=== PATIENT | male | born 1955 | race Caucasian/White ===

== ENCOUNTER → 2017-08-28 11:24 | Outpatient (CLI) | payer OTHER, SELFPAY ==
[2017-08-28 14:27] LABS: Basophils % 0.4 % (0.1-2.0); Eosinophils # 0.3 K/mm3 (0.0-0.4); Eosinophils % 3.9 % (0.1-12.0); Hematocrit 47.8 % (42.0-52.0); Hemoglobin 15.7 g/dL (14.1-18.0); Lymphocytes # 1.7 K/mm3 (0.7-4.5); Lymphocytes % 24.7 K/mm3 (10-50); Mean Corpuscular HGB Conc 32.9 g/dL (31.8-35.4); Mean Corpuscular Hemoglobin 33.6 pg (27.0-31.2); Mean Corpuscular Volume 102.2 fl (80-94); Mean Platelet Volume 8.7 fl (7.4-10.4); Monocytes # 0.5 K/mm3 (0.1-1.0); Monocytes % 7.6 % (1.7-9.3); Neutrophils # 4.4 K/mm3 (1.8-7.8); Neutrophils % 63.5 % (37.0-80.0); Platelet Count 201 K/mm3 (142-424); Red Blood Count 4.68 M/mm3 (4.60-6.20); Red Cell Distribution Width 13.1 % (11.5-17.5); White Blood Count 6.9 K/mm3 (4.8-10.8)
[2017-08-28 15:08] LABS: Alanine Aminotransferase 29 U/L (12-78); Albumin Level 3.9 gm/dL (3.4-5.0); Albumin/Globulin Ratio 1.1 (1.1-1.8); Alkaline Phosphatase 72 U/L (46-116); Anion Gap 15.5 mEq/L (5-15); Aspartate Amino Transferase 24 U/L (15-37); Bilirubin,Total 1.1 mg/dL (0.2-1.0); Blood Urea Nitrogen 19 mg/dL (7-18); Calcium 9.7 mg/dL (8.5-10.1); Carbon Dioxide 25 mmol/L (21.0-32.0); Chloride 99 mmol/L (98-107); Chol/HDL Ratio 3.3 (1-3.5); Cholesterol 139 mg/dL (140-200); Creatinine,Serum 1.03 mg/dL (0.70-1.30); Estimated Glomerular Filt Rate 73 ml/min (>60); GFR (African American) 88 ML/MIN (>60); Globulin 3.5 gm/dl (1.3-3.2); Glucose 115 mg/dL (74-106); HDL Cholesterol 42 mg/dL (27-67); LDL Cholesterol 87 mg/dL (0-130); Potassium 5.5 mmoL/L (3.5-5.1); Sodium 134 mmol/L (136-145); T4 (Thyroxine) 7.4 ug/dl (4.7-13.3); Total Protein,Serum 7.4 gm/dL (6.4-8.2); Triglycerides 49 mg/dL (30-200); VLDL Cholesterol 10 mg/dL (0-40)
[2017-08-29 20:15] LABS: Vitamin B12 565 pg/mL (232-1245); Vitamin D 25 Hydroxy 24.2 ng/mL (30.0-100.0)
== END ==
PROVIDERS: Visit Provider Nurse Practitioner Family
DX: R53.83 Other fatigue (principal); I10 Essential (primary) hypertension; Z79.899 Other long term (current) drug therapy
CPT/HCPCS: 80053; 80061; 82607; 82652; 84436; 84443; 85025

== ENCOUNTER → 2019-03-08 17:04 | Outpatient (CLI) | payer MEDICARE, OTHER, SELFPAY ==
[2019-03-08 17:27] LABS: Basophils # 0.1 K/mm3 (0-0.2); Basophils % 0.8 % (0.1-2.0); Eosinophils # 0.3 K/mm3 (0.0-0.4); Eosinophils % 4.6 % (0.1-12.0); Hematocrit 46.1 % (42.0-52.0); Hemoglobin 15.5 g/dL (14.1-18.0); Lymphocytes # 1.5 K/mm3 (0.7-4.5); Lymphocytes % 21.7 % (10-50); Mean Corpuscular HGB Conc 33.5 g/dL (31.8-35.4); Mean Corpuscular Hemoglobin 34.3 pg (27.0-31.2); Mean Corpuscular Volume 102.4 fl (80-94); Mean Platelet Volume 9.9 fl (7.4-10.4); Monocytes # 0.6 K/mm3 (0.1-1.0); Monocytes % 8.2 % (1.7-9.3); Neutrophils # 4.5 K/mm3 (1.8-7.8); Neutrophils % 64.6 % (37.0-80.0); Platelet Count 202 K/mm3 (142-424); Red Blood Count 4.51 M/mm3 (4.60-6.20); Red Cell Distribution Width 13.4 % (11.5-17.5); White Blood Count 6.9 K/mm3 (4.8-10.8)
[2019-03-08 19:07] LABS: Alanine Aminotransferase 27 U/L (12-78); Albumin Level 3.8 gm/dL (3.4-5.0); Albumin/Globulin Ratio 1.2 (1.1-1.8); Alkaline Phosphatase 67 U/L (46-116); Anion Gap 15.3 mEq/L (5-15); Aspartate Amino Transferase 17 U/L (15-37); Bilirubin,Total 1.1 mg/dL (0.2-1.0); Blood Urea Nitrogen 15 mg/dL (7-18); Calcium 9.2 mg/dL (8.5-10.1); Carbon Dioxide 24 mmol/L (21.0-32.0); Chloride 97 mmol/L (98-107); Chol/HDL Ratio 3.3 (1-3.5); Cholesterol 145 mg/dL (140-200); Creatinine,Serum 0.95 mg/dL (0.70-1.30); Estimated Glomerular Filt Rate 80 ml/min (>60); GFR (African American) 96 ML/MIN (>60); Globulin 3.3 gm/dl (1.3-3.2); Glucose 117 mg/dL (74-106); HDL Cholesterol 44 mg/dL (27-67); LDL Cholesterol 90 mg/dL (0-130); Potassium 5.3 mmoL/L (3.5-5.1); Sodium 131 mmol/L (136-145); Thyroid Stimulating Hormone 1.64 uIU/ml (0.358-3.740); Total Protein,Serum 7.1 gm/dL (6.4-8.2); Triglycerides 56 mg/dL (30-200); VLDL Cholesterol 11 mg/dL (0-40)
== END ==
PROVIDERS: Visit Provider Nurse Practitioner Family
DX: I10 Essential (primary) hypertension (principal); Z79.899 Other long term (current) drug therapy
CPT/HCPCS: 80053; 80061; 84436; 84443; 85025

== ENCOUNTER 2020-05-02 14:41 | Inpatient (IN) | payer MEDICARE, OTHER, SELFPAY ==
[2020-05-02] VITALS (45 sets, daily range): BP systolic 101–163; BP diastolic 61–117; PULSE 58–114; RESP 14–20; TEMP -17.7–36.4; O2SAT 97–100; BMI 33.8; BMI 27.5; BMI 33.9; BMI 26.9
--- NOTE | 2020-05-02 | IR_ITS ---
APPROVED REPORT Patient Location: [facility] Equipment Design Engineer: TISHA Orozco RT (R) PROCEDURES 1. Left heart catheterization 2. Selective coronary arteriography 3. Left ventriculography 4. Access of the left common femoral artery 5. Sheath placement in the left common femoral artery 6. Pigtail catheter placement in the infrarenal abdominal aorta 7. Pelvic aortogram INDICATION 1. Acute myocardial infarction, 2. Abnormal EKG SCAI INDICATION Patient is a 64-year-old white male who presented after being found down. Question of seizure activity. Also question of stroke. Had a CT scan which came back with no intracranial bleed. Patient had ST elevation throughout the inferior lateral and anterior leads. Global ST elevation with no reciprocal change. Ischemic changes. Unable to take history given the fact the patient was intubated. Brought directly to the cardiac catheterization laboratory Informed consent was obtained prior to the procedure. COMPLICATIONS None Estimated Blood Loss: less than 10ml TECHNIQUE One percent lidocaine was used to anesthetize the right groin. The right femoral artery was accessed via the Seldinger technique. A 4-Turkmen sheath was placed in the right femoral artery. The JL-4 and JR-4 catheter was also used to perform left heart catheterization left ventriculogram and selective coronary angiogram. At the end of the procedure the patient was transferred to the post-op holding area in stable condition for arterial sheath removal. ANGIOGRAPHIC RESULTS The left main artery Moderate ostial calcification but angiographically normal The left anterior descending artery Diffuse 20 to 30% proximal and mid stenosis with moderate to severe coronary calcification The circumflex artery Large and dominant. Diffuse 20 to 30% mid stenosis with moderate to severe calcification The right coronary artery Moderate to severe ostial calcification. Nondominant right coronary artery. Smooth 30% proximal/mid stenosis The DENNISON ventriculogram reveals Normal left ventricular systolic function with an ejection fraction of 65 to 70%. No noted mitral regurgitation and no wall motion abnormalities The left ventricular end-diastolic pressure 26 I had a difficult time getting in the right leg. I was able to gain access and place a sheath in the right common femoral artery. Heavy calcification was noted of the iliac arteries. Retrograde iliac angiogram was performed on the right which showed 100% occlusion of the right distal external iliac artery. It was unclear as to whether this was a dissection flap which would be a retrograde flap or whether there was 100% occlusion. I then gained access in the left common femoral artery. Sheath was placed. I had a difficult time getting up the left leg as well as there was moderate to severe calcification in the iliac system. With the help of a Glidewire I was able to get up. It was difficult to pass the catheter. At the end of the case, I went in with the pigtail catheter after doing the left ventriculogram and pulled it down to the distal abdominal aorta. Bilateral iliofemoral pelvic angiogram was performed. Heavy calcification of the peripheral vasculature. Severe stenosis noted in the mid left external iliac artery. 100% occlusion of the right external iliac artery in its proximal/midportion. Also noted to have 100% occlusion of the ostial left superficial femoral artery given heavy calcification. IMPRESSION 1. Mild diffuse coronary artery disease 2. Moderate to severe coronary calcification 3. Preserved normal left ventricular systolic function 4. Mild elevation in left ventricular end-diastolic pressure 5. Severe peripheral arterial c
--- NOTE | 2020-05-02 14:37 | ECG_ITS ---
APPROVED REPORT Exam: Resting ECG HR:114 bpm ECG Measurements Heart Rate 114 AXES QRSd 96 QRS 22 QT 340 T 75 QTc 468 Conclusion Atrial fibrillation with rapid ventricular response with premature ventricular or aberrantly conducted complexes ST elevation, consider anterolateral injury or acute infarct ST elevation, consider inferior injury or acute infarct ACUTE MN Consider right ventricular involvement in acute inferior infarct Abnormal ECG Electronically signed by : Cristobal Guevara, 05/02/2020 20:46:01
--- NOTE | 2020-05-02 14:42 | PC.NURSE ---
1436- pt arrived via EMS pt nasally intubated with a 7.0 ETT, tube is barried to hub in pt R nare. per ems report pt found pt on the floor, unknown how long pt was on the floor. Pt reports pt had fallen multiple times today.
--- NOTE | 2020-05-02 14:42 | PC.NURSE ---
Dr Moise notified of STEMI Alert
--- NOTE | 2020-05-02 14:50 | PC.NURSE ---
Pt to ct scan with Mariajose and Jose.
--- NOTE | 2020-05-02 14:52 | CT_ITS ---
PROCEDURE: CT HEAD/BRAIN WO CON CLINICAL INDICATION: ams COMPARISON: No exams were available for comparison TECHNIQUE: Axial images obtained. All CT scans at the facility use one or more dose reduction, viz: automated exposure control, ma/kV adjustment per patient size (including targeted exams where dose is matched to indication, i.e. head), or iterative reconstruction technique. FINDINGS: No midline shift, mass effect, intracranial hemorrhage, hydrocephalus, or extra-axial fluid collection is evident. The basilar cisterns are prominent. Sylvian fissures and cortical sulci. There are mild bilateral periventricular hypodensities consistent chronic ischemic white matter changes. There is no definite ischemic infarct seen. The calvarium has an unremarkable appearance. No mastoid effusion. No sinus air-fluid level. IMPRESSION: Findings of moderate cortical atrophy mild bilateral chronic ischemic white matter changes, no acute intracranial pathology noted Dictated by: Dr. Francisco Benjamin MD 05/02/2020 15:11 Dr. Francisco Benjamin MD in [place] 05/02/2020 15:11
--- NOTE | 2020-05-02 14:58 | PC.NURSE ---
Stemi called for pt at 1439 notified at 1443
[2020-05-02 15:02] LABS: Basophils # 0.1 K/mm3 (0-0.2); Basophils % 0.2 % (0.1-2.0); Eosinophils # 0.1 K/mm3 (0.0-0.4); Eosinophils % 0.1 % (0.1-12.0); Hematocrit 46.4 % (42.0-52.0); Hemoglobin 15.2 g/dL (14.1-18.0); Lymphocytes # 2.4 K/mm3 (0.7-4.5); Lymphocytes % 6.7 % (10-50); MANUAL DIFFERENTIAL MANUAL DIFFERENTIAL (MANUAL DIFF); Mean Corpuscular HGB Conc 32.8 g/dL (31.8-35.4); Mean Corpuscular Hemoglobin 33.7 pg (27.0-31.2); Mean Corpuscular Volume 102.8 fl (80-94); Monocytes # 1.4 K/mm3 (0.1-1.0); Monocytes % 3.8 % (1.7-9.3); Neutrophils # 32.1 K/mm3 (1.8-7.8); Neutrophils % 89.2 % (37.0-80.0); Platelet Count 420 K/mm3 (142-424); Red Blood Count 4.51 M/mm3 (4.60-6.20); Red Cell Distribution Width 14.1 % (11.5-17.5)
--- NOTE | 2020-05-02 15:03 | XR_ITS ---
PROCEDURE: XR CHEST AP CLINICAL HISTORY: ET TUBE PLACEMENT COMPARISON: CR CXR CHEST(2 VIEWS-NOT PORTABLE) from 02/22/2014 CR CXR1 CHEST-PORTABLE from 08/13/2015 FINDINGS: The lung wong are fairly well expanded grossly clear infiltrate. There is a resuscitated paddle overlying the right suprahilar region and axillary region. The endotracheal tube is in good position approximately 2 cm above the luis. Cardiac size is grossly normal considering the supine position. Vascularity is normal for supine position. IMPRESSION: Satisfactory position of endotracheal tube, no definite acute chest pathology noted Dictated by: Dr. Francisco Benjamin MD 05/02/2020 15:22 Dr. Francisco Benjamin MD in [facility] 05/02/2020 15:22
[2020-05-02 15:10] LABS: Alanine Aminotransferase 71 U/L (12-78); Albumin Level 4.7 g/dl (3.5-5.0); Albumin/Globulin Ratio 1.2 (1.1-1.8); Alkaline Phosphatase 154 U/L (38-126); Anion Gap 29.9 mEq/L (5-15); Aspartate Amino Transferase 71 U/L (17-59); Bilirubin,Total 2.7 mg/dl (0.2-1.3); Blood Urea Nitrogen 12 mg/dl (9-20); Calcium 9.9 mg/dl (8.4-10.2); Chloride 86 mmol/L (98-107); Creatinine Clearance Estimated 117 mL/min (50-200); Estimated Glomerular Filt Rate 97 ml/min (>60); GFR (African American) 117 ML/MIN (>60); Globulin 3.9 g/dL (1.3-3.2); Glucose 229 mg/dl (74-100); Lymphocytes % 13 % (10-50); Monocytes % 1 % (2-9); Neutrophils % 86 % (42-76); Platelet Estimate Normal; Potassium 3.9 mmoL/L (3.5-5.1); RBC Morphology Normal; Sodium 122 mmol/L (136-145); Total Cells Counted 100; Total Protein,Serum 8.6 g/dl (6.3-8.2)
[2020-05-02 15:14] LABS: Carbon Dioxide 10 mmol/L (22.0-30.0)
--- NOTE | 2020-05-02 15:18 | HMH.CNCARD ---
History of Present Illness Consult date: 05/02/20 Requesting physician: Cecil Briceño Consult reason: chest pain, atrial fibrillation, shortness of breath Chief complaint: STEMI Additional Medical History:: 1. STEMI (05/02/2020) a. ST elevation on EKG 2. Uncontrolled Hypertension a. Weaned off BP meds per . 3. Cirrhosis of liver a. Alcohol (2-3 beers a day per ) b. Homopathethic approach 4. Ascites a. Parathesthesis x2 (15-20 years ago) 5. Hepatitis (Childhood) 6. Tobacco use a. Smoke 1ppd over 30 years History of present illness: 64-year-old male presented to the emergency room with STEMI. Pt is intubated and unresponsive. stated at 1200 pm this afternoon, she noticed the pt stumbling to the restroom. stated she thought the pt was just tired, so she left him alone with a few hours. When she returned to check on him, she noticed that he was not responding to any commands. stated that the pt's eyes were rolling back into his head and he would not respond appropriately. stated that the pt was not drooling or face drooping. stated that the pt had been complaining of lower back pain and left hip pain. Pt had fell off a tractor a few weeks ago scrapping his lower extremities. stated that she had been treating the scraps with ointment. No fever noted. He has no significant history of coronary artery disease. Does smoke 1 pack of cigarettes per day. Patient has smoked for the past 20 to 30 years. admits patient does drink alcohol. States he normally drinks 2-3 beers a day. Patient was diagnosed with cirrhosis of the liver a few years ago. He has required 2 paracentesis. The last one being 15 to 20 years ago per . Patient does have history of hepatitis. states patient was last seen by PCP a few months ago and was given prescription for spironolactone. stated that she prefers patient not to have any medications because she tries to do everything homeopathic. Initial EKG performed in the ED revealed STEMI. Lab work was performed. CBC 36.0, sodium 122, BUN 12 creatinine 0.80 and livers enzymes were elevated. CT of Head: FINDINGS: No midline shift, mass effect, intracranial hemorrhage, hydrocephalus, or extra-axial fluid collection is evident. The basilar cisterns are prominent. Sylvian fissures and cortical sulci. There are mild bilateral periventricular hypodensities consistent chronic ischemic white matter changes. There is no definite ischemic infarct seen. The calvarium has an unremarkable appearance. No mastoid effusion. No sinus air-fluid level. IMPRESSION: Findings of moderate cortical atrophy mild bilateral chronic ischemic white matter changes, no acute intracranial pathology noted Upon arrival patient was intubated per EMS. Patient noted as hypertensive with a BP of 167/117. NG being placed per ED staff. After determining patient had no brain hemorrhage or bleed, patient was started on heparin 9000 unit drip IV and was given Brilinta 180 mg p.o. by NG. Discussed plan of care with Dr. Moise and Dr. Nguyen. Recommend left heart catheterization due to STEMI immediately. Family at bedside. Discussed with family the benefits and risk of a left heart cath with access through the right groin. Family agreeable. Family is distraught because they were hoping patient can be transferred [facility] but due to critical status outpatient, family is agreeable for patient to stay at this facility. Pending on the results of the left heart catheterization, recommendations for medication and treatment therapy will be considered. Thank you for letting cardiology participate in the care of this pt. [facility] History I have reviewed the patient's past medical history: Yes Medical History: Reports:: Hypertension *Have you ever received a pneumonia vaccine?: No *Have you received a flu vaccine this season?: No Other Medical History:
--- NOTE | 2020-05-02 15:25 | PC.NURSE ---
[address] gates that patient CO2 is 10. no new orders.
--- NOTE | 2020-05-02 15:30 | PC.NURSE ---
pt transported to equipment operator/laborer per myself, edwige,pm and huiRT
[2020-05-02 15:46] LABS: Coronavirus 19 IgG Antibody Positive (Negative); Coronavirus 19 IgM Antibody Negative (Negative)
[2020-05-02 16:16] LABS: Troponin I 1.09 ng/ml (0.00-0.034)
--- NOTE | 2020-05-02 16:17 | PC.NURSE ---
paged Dr Crane at this time for admission
--- NOTE | 2020-05-02 16:39 | CT_ITS ---
PROCEDURE: CT ANGIO CHEST Referring Doctor: Cassy Castro Patient Age:64Y CLINCIAL INDICATION: Possible PE Chest pain dyspnea smoker patient just had a heart catheterization the COMPARISON: CR CXR CHEST(2 VIEWS-NOT PORTABLE) from 02/22/2014 CT ABDPELW/O CT ABD PELVIS W/O CONTRAST from 08/13/2015 CR CXR1 CHEST-PORTABLE from 08/13/2015 CR XR CHEST AP from 05/02/2020 CR XR CHEST PORTABLE from 05/03/2020 TECHNIQUE: IV Contrast: 70ML Isovue 370 followed by 40 mL normal saline Helical axial images obtained withmi thickened slab mipp sagittal and coronal reformats on CT suite independent workstation-[address] scans at the facility use one or more dose reduction, viz: automated exposure control, ma/kV adjustment per patient size (including targeted exams where dose is matched to indication, i.e. head), or iterative reconstruction technique. FINDINGS: Tubes: ET tube in place. ET tube tip the 15 mm above luis on this image set NG tube in place passing into the stomach tip well into the stomach. PULMONARY ARTERIES: No pulmonary embolus evident. AORTA: No acute finding. No thoracic aortic aneurysm or dissection evident LUNGS: Emphysematous changes with some bronchial wall thickening a which may reflect bronchitis There is also coarsening markings of question of mild interstitial infiltrate developing upon some chronic interstitial fibrotic changes here at the right apex region. Also mild dependent atelectasis and mild fibrotic changes along the posterior lung bases PLEURAL SPACES: No significant effusion. No evidence of pneumothorax. HEART: Unremarkable. Normal heart size. No significant pericardial effusion. The coronary artery calcification most pronounced at the left main but also of fairly extensive through the LAD and circumflex-please see preceding coronary catheterization information for detail coronary evaluation MEDIASTINAL AND HILAR STRUCTURES: No mediastinal or hilar mass evident. No significant/dominant adenopathy is scattered small to medium size lymph nodes mediastinum and hilar regions There are some serpiginous structures adjacent to the distal esophagus which suspect for possible developing esophageal varices. The IV contrast has not yet reached these structures. BONY STRUCTURES: No acute bony abnormalities apparent. LYMPH NODES: No enlarged lymph nodes evident. UPPER ABDOMEN: .. Cholelithiasis; 3 or 4 small stones at dependent gallbladder. Fatty changes liver. Probable cirrhotic liver scant fluid surrounds liver. Splenomegaly. Gynecomastia IMPRESSION: 1..No evidence of pulmonary embolism.. No aortic dissection the or aneurysm.. Diffuse atherosclerotic calcification aorta. Multivessel coronary artery calcification of most pronounced at left main incidentally noted 2..ET tube and NG tube in place 3..Lungs: Emphysematous changes . Suggestion minimal interstitial infiltrate at the right apex/RUL superimposed upon fibrotic change. . Slight central airway thickening may reflect bronchitis or chronic bronchitis 4..Splenomegaly 5..Probable cirrhosis with scant linear fluid surrounding liver-correlation with LFTs 6..Appear to be portal venous collaterals-with esophageal varices. Dictated by: Jaspreet Angel MD 05/03/2020 06:14 Jaspreet Angel MD in [facility] 05/03/2020 06:14
[2020-05-02 16:50] LABS: Microscopic, Urine URINE MICROSCOPIC (MICROSCOPIC)
--- NOTE | 2020-05-02 16:53 | SUR.OPER ---
after case patient transported for ct of chest
[2020-05-02 16:54] LABS: Appearance,Urine CLEAR (Clear); Bilirubin,Urine Negative (Negative); Blood, Urine 1+ (Negative); Color,Urine YELLOW (Yellow); Glucose,Urine (UA) TRACE (Negative); Ketones,Urine 1+ (Negative); Leukocyte Esterase,Urine Negative (Negative); Nitrate,Urine Negative (Negative); Protein,Urine 1+ (Negative)
[2020-05-02 16:58] LABS: Amorphous Sediment,Urine Trace /lpf
--- NOTE | 2020-05-02 16:58 | HMH.EDGENADL ---
ED Disposition Clinical Impression: Unresponsive state, STEMI (ST elevation myocardial infarction) Disposition: Admitted As Inpatient Condition on Discharge: Serious - Critical Care Critical Care Time: No Attestation: On 05/02/20, the high probability of a clinically significant, sudden or life threatening deterioration of the following system(s) required my full and direct attention, intervention and personal management. The time I documented below is in addition to time spent performing reported procedures but includes the following listed in this critical care notation. Medical Decision Making - Medical Records Medical records reviewed: Yes: I reviewed the patient's medical records. MR Comment: This 64-year-old male brought by EMS with complaint of shortness of breath and frequent falls he was intubated in the field at the time of arrival and had complained of chest pain initial EKG had shown ST elevation; He has a h/o cirrhosis of the liver;. EKG was abnormal with atrial fibrillation with RVR and ST elevation consider anterior lateral injury and ST elevation consider inferior injury see showed an elevation 1236 electrolytes were essentially electrolytes are as follows sodium 122 chloride 3.9 chloride 86 CO2 10 BUN 12 creatinine 0.8 blood sugar 229 troponin was elevated at 1.09 total bilirubin is elevated 2.7 AST and ALT 71 each; In view of apparent IL he was taken over by cardiology and taken to the Machine Designer - [facility] Inquiry Pt receiving controlled substance: No Vital Signs: 05/02/20 14:41 Pulse Rate [Apical] 114 H Respiratory Rate 14 Blood Pressure [Right Arm] 161/117 H Blood Pressure Mean [Right Arm] 131 Blood Pressure Source [Right Arm] Automatic Cuff Blood Pressure Position [Right Arm] Supine 02 Sat by Pulse Oximetry 100 Oxygen Delivery Method Mechanical Ventilation Ambu-Bag - Lab Data Lab results reviewed: Yes: I reviewed the patient's lab results. Lab Results 05/02/20 14:49: WBC 36.0 H*, RBC 4.51 L, Hgb 15.2, Hct 46.4, MCV 102.8 H, MCH 33.7 H, MCHC 32.8, RDW 14.1, Plt Count 420, MPV 8.0, Neut % (Auto) 89.2 H, Lymph % (Auto) 6.7 L, [place] % (Auto) 3.8, Eos % (Auto) 0.1, Baso % (Auto) 0.2, Neut # (Auto) 32.1 H, Lymph # (Auto) 2.4, [place] # (Auto) 1.4 H, Eos # (Auto) 0.1, Baso # (Auto) 0.1, Total Counted 100, Neutrophils % (Manual) 86 H, Lymphocytes % (Manual) 13, Monocytes % (Manual) 1 L, Platelet Estimate Normal, RBC Morphology Normal 05/02/20 14:49: Sodium 122 L, Potassium 3.9, Chloride 86 L, Carbon Dioxide 10 L, Anion Gap 29.9 H, BUN 12, Creatinine 0.80, Estimated Creat Clear 117, Estimated GFR 97, Est GFR ( Amer) 117, Glucose 229 H, Calcium 9.9, Total Bilirubin 2.7 H, AST 71 H, ALT 71, Alkaline Phosphatase 154 H, Total Protein 8.6 H, Albumin 4.7, Globulin 3.9 H, Albumin/Globulin Ratio 1.2 05/02/20 14:49: Troponin I 1.09 H 05/02/20 14:49: SARS-CoV-2 IgG Ab (Rapid) Positive A, SARS-CoV-2 IgM Ab (Rapid) Negative 05/02/20 14:49: Urine Color Yellow, Urine Appearance Clear, Urine pH 6.0, Ur Specific [place] 1.020, Urine Protein 1+, Urine Glucose (UA) Trace, Urine Ketones 1+, Urine Blood 1+, Urine Nitrate Negative, Urine Bilirubin Negative, Urine Urobilinogen 1.0, Ur Leukocyte Esterase Negative, Urine RBC None, Urine WBC None, Ur Squamous Epith Cells 3-5, Amorphous Sediment Trace, Urine Bacteria None Result diagrams: 05/02/20 14:49 05/02/20 14:49 Orders (Tests/Meds): ED MEDICATIONS Generic Name Dose Route Start Last Admin Trade Name Freq PRN Reason Stop Dose Admin Fentanyl Citrate 25 mcg 05/02/20 14:48 Fentanyl 250mcg/5ml Vial IV 05/03/20 14:48 Q3MINP PRN Moderate to Severe Pain Fentanyl Citrate 50 mcg 05/02/20 14:48 Fentanyl 250mcg/5ml Vial IV 05/03/20 14:48 Q3MINP PRN Moderate to Severe Pain Fentanyl Citrate 25 mcg 05/02/20 14:48 05/02/20 16:06 Fentanyl 100mcg/2ml Vial IV 05/03/20 14:48 100 mcg Q3MINP PRN Administration Moderate to Severe
[2020-05-02 17:23] LABS: D-Dimer 2.09 ug/mL (0.15-8.0)
--- NOTE | 2020-05-02 17:41 | SUR.PHASEII ---
Patient transported from ct to clinical lab assistant holding at 1700
--- NOTE | 2020-05-02 19:12 | PC.NURSE ---
PT ARRIVED TO FLOOR VIA STRETCHER @ 1909
[2020-05-02 19:22] LABS: ABG HCO3 18.1 mmhg (22.0-26.0); ABG Oxygen Saturation 99 % (90-100); ABG PCO2 27.3 mmhg (35.0-45.0); ABG PH 7.44 mmol/L (7.35-7.45); ABG PO2 120.2 mmhg (80-100)
[2020-05-02 19:27] LABS: Allen's Test Patient Unable; Oxygen 40 %; PEEP 5; Source Left Radial; Tidal Volume 440; Vent Rate 20
--- NOTE | 2020-05-02 20:54 | PC.NURSE ---
Respiratory rate turned down to [address] Guevara.
--- NOTE | 2020-05-02 21:03 | HMH.HP ---
*Admission Date: 05/02/20 *Chief complaint: Respiratory arrest with mental status changes *History of present illness: 64-year-old white male with unavailable past medical history except for hypertension and heavy smoking and peripheral vascular disease who had been in his compromise state of health over the past couple of days according to his 's history related to the nursing staff, who over the past 12 hours has been falling frequently. He had fallen quite a bit at home, and then had what the described as a seizure episode and then became unresponsive. EMS was summoned, when they arrived the patient was unresponsive and in respiratory distress. They found that he had significantly elevated blood pressures, he was nasally intubated and brought to the emergency department. In the emergency department he was found to have ST segment elevation, CT scan of the head was done to make sure he did not have hemorrhagic stroke-this was negative except for chronic changes and he was taken to the Power Press Tender. Cath revealed heavily calcified peripheral arterial disease but essentially normal coronary arteries and normal ejection fraction. He remained unresponsive and intubated and was transferred to the intensive care unit for further evaluation. I have seen him tonight in cross cover as well as in consultation for ventilator management from his primary care physician team. [facility] History I have reviewed the patient's past medical history: Yes Medical History: Reports:: Hypertension *Have you ever received a pneumonia vaccine?: No *Have you received a flu vaccine this season?: No Other Medical History: Reports: Sinus Problems Other Surgeries: Yes: Appendectomy, Sinus Surgery, Other Amputation: No Fractures: No - *Social History Smoking Status: Current every day smoker Tobacco Type: cigarettes # Packs/Day (cigarettes): 1 Alcohol Intake: current Alcohol Intake Frequency:: a few times a month Substance Use Type: denies use *Occupational Status:: retired Housing: house Household Members: spouse *Travel in the last 8 weeks: None Family Hx:: Kidney Disease, Cancer Review of Systems - Review of Systems Review of systems:: unable to obtain - *Neurologic Reports abnormal walking, Reports lack of coordination, Denies seizure-like activity Meds Home Medications Medication Instructions Recorded Confirmed Type milk thistle 150 mg capsule 360 mg PO BID cap 08/28/17 05/02/20 History Folic Acid/Vit B Complex and C 1 tab PO Q24H 05/02/20 05/02/20 History [Dialyvite Tablet] Lactulose [Lactulose 10gm/15ml 3 tsp PO TID 05/02/20 05/02/20 History Oral Soln] Multivitamin,Therapeutic [Therems] 1 tab PO QAM 05/02/20 05/02/20 History Propranolol HCl 10 mg PO BID 05/02/20 05/02/20 History Spironolactone 1 tab PO TID 05/02/20 05/02/20 History Allergies Allergy/AdvReac Type Severity Reaction Status Date / Time codeine [CODEINE] Allergy Unknown Verified 03/08/19 11:20 Exam Vital signs and Labs for Last 24 Hours: Temp Pulse Resp BP Pulse Ox 0 F L 60 18 123/83 100 05/02/20 15:30 05/02/20 20:00 05/02/20 18:55 05/02/20 18:55 05/02/20 18:55 Laboratory Results - last 24 hr 05/02/20 14:49: WBC 36.0 H*, RBC 4.51 L, Hgb 15.2, Hct 46.4, MCV 102.8 H, MCH 33.7 H, MCHC 32.8, RDW 14.1, Plt Count 420, MPV 8.0, Neut % (Auto) 89.2 H, Lymph % (Auto) 6.7 L, [place] % (Auto) 3.8, Eos % (Auto) 0.1, Baso % (Auto) 0.2, Neut # (Auto) 32.1 H, Lymph # (Auto) 2.4, [place] # (Auto) 1.4 H, Eos # (Auto) 0.1, Baso # (Auto) 0.1, Total Counted 100, Neutrophils % (Manual) 86 H, Lymphocytes % (Manual) 13, Monocytes % (Manual) 1 L, Platelet Estimate Normal, RBC Morphology Normal 05/02/20 14:49: Sodium 122 L, Potassium 3.9, Chloride 86 L, Carbon Dioxide 10 L, Anion Gap 29.9 H, BUN 12, Creatinine 0.80, Estimated Creat Clear 117, Estimated GFR 97, Est GFR ( Amer) 117, Glucose 229 H, Calcium 9.9, Total Bilirubin 2.7 H, AST 71 H, ALT 71, Alkaline Phosphatase
--- NOTE | 2020-05-02 21:21 | HMH.PHAVTE ---
[facility] Pharmacy VTE Monitoring - Patient Demographics Admission date: 05/02/20 (T) Report Date: 05/02/20 Time: 21:21 Allergies/Adverse Reactions: Patient Allergies codeine [CODEINE] Allergy (Unknown, Verified 03/08/19 11:20) Height: 1.83 m Weight: 90.31 kg Patient Problems: Current Active Problems Cirrhosis of liver (Acute) Alcohol abuse (Acute) Elevated liver enzymes (Acute) Unresponsive state (Acute) Respiratory arrest (Acute) Hypertension (Acute) - VTE Risk Labs: VTE Related Lab Results Hgb 15.2 g/dL (14.1-18.0) 05/02/20 14:49 Hct 46.4 % (42.0-52.0) 05/02/20 14:49 Plt Count 420 K/mm3 (142-424) 05/02/20 14:49 BUN 12 mg/dl (9-20) 05/02/20 14:49 Creatinine 0.80 mg/dl (0.66-1.25) 05/02/20 14:49 Estimated Creat Clear 117 mL/min (50-200) 05/02/20 14:49 Clinical Trial Participant: No - Prophylaxis VTE Prophylaxis Ordered?: Yes Types of VTE Prophylaxis: TEDS Knee High, Pharmacological Pharmacologic Type: Enoxaparin
[2020-05-02 21:36] LABS: Lactic Acid 1.4 mmol/L (0.7-2.1)
[2020-05-03] VITALS (32 sets, daily range): BP systolic 102–164; BP diastolic 57–107; PULSE 60–94; RESP 16–28; TEMP 36.2–37.6; O2SAT 89–99; BMI 27.2
--- NOTE | 2020-05-03 06:00 | XR_ITS ---
PROCEDURE: XR CHEST PORTABLE Referring Doctor: Cristobal Guevara Patient Age:64Y CLINICAL HISTORY: f/u icu exam Unresponsive. Elevated troponin. COMPARISON: CR CXR CHEST(2 VIEWS-NOT PORTABLE) from 02/22/2014 CR CXR1 CHEST-PORTABLE from 08/13/[address] ANGIO CHEST from 05/02/2020 CR XR CHEST AP from 05/02/2020 FINDINGS: . AP portable supine CXR ET tube in place with tip now 5 cm above luis-appears to been pulled back since prior yesterday CT chest and CXR. NG tube was seen on the CT chest performed yesterday afternoon but do not visualized NG tube on today's CXR. Clinical correlation required The cardiomediastinal silhouette and pulmonary vascularity are within normal limits. The lungs are clear without infiltrates, suspicious nodules, or pleural effusions. No acute bony abnormalities. The heart is normal size;, dense diffuse calcified aortic knob. Nory and mediastinal structures unremarkable upper normal pulmonary vascularity. The. No prominent consolidation or discrete lobar pneumonia but there is Slight diffuse interstitial coarsening bilaterally most evident throughout the right lung. This may reflect some underlying chronic changes of but I could not exclude a subtle superimposed interstitial infiltrate particularly in the right lung at the suprahilar region towards right apex; and infrahilar areas. I will benefit from follow-up chest film to better exclude early or are developing interstitial infiltrate IMPRESSION: ET tube of the remains-pulled back since yesterday with tip 5 cm above luis NG tube not seen on today's CXR correlation required Upper normal pulmonary vascularity Mild diffuse interstitial coarsening appearance-particularly right suprahilar region and right infrahilar area . Follow-up CXR will be helpful further evaluate for possible minimal developing infiltrate superimposed upon chronic changes Dictated by: Jaspreet Angel MD 05/03/2020 06:24 Jaspreet Angel MD in [place] 05/03/2020 06:24
--- NOTE | 2020-05-03 06:03 | PC.NURSE ---
shift summary pt remains unresponsive and unsedated, no corneal reflex, gag reflex, or cough reflex present. pt flaccid, no seizure activity noted. repairer screen crusher has shown sr, 2-3+ edema noted in bilateral upper extremities. breath sounds sound course through out and more diminished then previous night, required frequent suction for copious amounts of tenacious secretions. sats have remained 89-97 on 40% fio2. tolerating tube feeding at goal rate of 60ml/hr. armendariz draining clear yellow urine. family has remained at bedside, encouraged and allowed to ask questions, voice concerns, and express emotions.
--- NOTE | 2020-05-03 06:16 | PC.NURSE ---
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 no hematoma present. bilateral pedal pulse per doppler and marked for future assessment. right pt pulse per doppler, left pt absent. bilateral feel cool to touch. cap refill right at 3 sec. alarm security or surveillance monitor has shown sb-sr with pacs and pvcs. o2 sats have remained high 90s on 30% fio2. breath sounds clear to auscultation. bowel sounds hypoactive x4 quads. patient awakens spontaneously, moves all extremities purposefully. pateint follows commands, pupils now +2 and reactive. no seizure like activity noted this shift. mittens in place for tube protection. armendariz draining clear yellow urine.
[2020-05-03 06:25] LABS: Basophils % 0.1 % (0.1-2.0); Hematocrit 37.1 % (42.0-52.0); Lymphocytes % 4.5 % (10-50); Mean Corpuscular Volume 97.3 fl (80-94); Mean Platelet Volume 8.8 fl (7.4-10.4); Monocytes # 1.2 K/mm3 (0.1-1.0); Monocytes % 5.2 % (1.7-9.3); Neutrophils # 20.9 K/mm3 (1.8-7.8); Neutrophils % 90.2 % (37.0-80.0); Platelet Count 325 K/mm3 (142-424); Red Blood Count 3.81 M/mm3 (4.60-6.20); White Blood Count 23.1 K/mm3 (4.8-10.8)
[2020-05-03 06:34] LABS: Chloride 101 mmol/L (98-107); Sodium 128 mmol/L (136-145)
[2020-05-03 06:37] LABS: Alanine Aminotransferase 35 U/L (12-78); Albumin Level 3.1 g/dl (3.5-5.0); Alkaline Phosphatase 117 U/L (38-126); Aspartate Amino Transferase 58 U/L (17-59); Bilirubin,Total 1.3 mg/dl (0.2-1.3); Blood Urea Nitrogen 15 mg/dl (9-20); Carbon Dioxide 22 mmol/L (22.0-30.0); Creatinine Clearance Estimated 94 mL/min (50-200); Estimated Glomerular Filt Rate 113 ml/min (>60); GFR (African American) 137 ML/MIN (>60); Total Protein,Serum 6.1 g/dl (6.3-8.2)
[2020-05-03 06:38] LABS: Glucose 139 mg/dl (74-100)
[2020-05-03 06:54] LABS: MANUAL DIFFERENTIAL MANUAL DIFFERENTIAL (MANUAL DIFF)
--- NOTE | 2020-05-03 07:00 | CA_ITS ---
APPROVED REPORT EXAM: Comprehensive 2D, Doppler, and color-flow Echocardiogram Brim Greaser Operator: Ana Richey RVT Ht: 6 ft 0 in Wt: 199lbs BSA: 2.13 BP: 132/80 mmHg Indications: STEMI,UNRESPONSIVE,PT ON VENT,SMOKER,CP,SOA, HTN,WTOH ABUSE,ASCITES,A-FIB,HEPATITIS TDS-PT ON VENT VERY LIMITED WINDOWS 2D Dimensions LVOT 1.74 cm (M/F) 1.5-2.5 M-Mode Dimensions LA Diam 4.28 cm (1.9-4.0) LVDd 5.36 cm (3.5-5.7) Ao Diam 2.84 cm (2.0-3.7) LVDs 3.35 cm (3.5-5.7) IVSd 0.31 cm (0.6-1.1) PWd 0.49 cm (0.6-1.1) EF (Teich) 67.00% FS 37.50% EDV (Teich) 138.90 mL ESV (Teich) 45.80 mL LV Diastology E Decel Time 310.00 (160-240 msec) E/A Ratio 0.6 MED E' 5.10 (< 7 cm/sec) E'/MED E' Ratio 11.51 (>14) LAT E' 8.40 (<10 cm/sec) E/LAT E' Ratio 6.99 (>14) Aortic Valve AO VTI 33.26 (18-25 cm) Mitral Valve MV E Max Aristides. 59.00 (40-130 cm/s) MV A Velocity 96.00 (40-130 cm/s) E/A Ratio 0.61 MV Decel. Time 310.00 (160-240 ms) MV PHT 91.00 ms Pulmonary Valve PV Peak Velocity 86.00 (50-150 cm/s) Tricuspid Valve TR P. Velocity 229.00 cm/s RAP Estimate 10.00 mmHg RVSP 31.00 mmHg Left Ventricle Left atrium is mildly enlarged, left ventricle is normal size, mild concentric left ventricular hypertrophy, visually estimated ejection fraction 30%, there is marked hypokinesis involving the mid to distal septum, anterior, anterior apical and apical wall. Basal portion of the heart is hypercontractile creating dynamic obstruction in the left ventricular outflow tract, the degree of obstruction is not recorded in the study. Grade 1 diastolic dysfunction seen without tissue Doppler evidence of raise left atrial pressure. Right Ventricle Right atrium and right ventricle are normal size and contractility. Aortic Valve Aortic valve is thickened and calcified leaflet continue to display mobility, there is no aortic stenosis or aortic insufficiency. Mitral Valve Mitral valve has mitral calcification, leaflets are minimally thickened and calcified, there is no mitral stenosis, there is mild mitral regurgitation. Tricuspid Valve Tricuspid valve is grossly normal, there is mild tricuspid regurgitation, tricuspid regurgitation jet velocity is inadequate for calculation of the right ventricular systolic pressure. Pulmonic Valve Pulmonic valve is poorly visualized. Great Vessels Aortic root is normal size. Pericardium No significant pericardial effusion noted. Conclusion 1. Mildly enlarged left atrium, normal left ventricular size, severe reduced left ventricular systolic function, visually estimated ejection fraction 30% with multiple segmental wall motion abnormality described above, hyperdynamic basal portion of the left ventricle, creating left ventricular outflow tract gradient, the degree of gradient is not recorded in the study. Grade 1 diastolic dysfunction seen without tissue Doppler evidence of raise left atrial pressure. 2. Mild mitral and tricuspid regurgitation. 3. No significant pericardial effusion noted. Electronically signed by : Darryl Alvarado, 05/04/2020 11:56:17
[2020-05-03 07:26] LABS: ABG Base Excess -4.7 mmol/L (-2.4-2.3); ABG HCO3 18.7 mmhg (22.0-26.0); ABG Oxygen Saturation 94 % (90-100); ABG PCO2 25.3 mmhg (35.0-45.0); ABG PH 7.49 mmol/L (7.35-7.45); ABG PO2 67.7 mmhg (80-100); ABG TCO2 19.5 mmhg (23-27); Allen's Test Patient Unable; Oxygen 30 %; PEEP 5; Tidal Volume 450; Vent Rate 16
[2020-05-03 07:27] LABS: Source Right Brachial
[2020-05-03 07:34] LABS: Calcium 8.7 mg/dl (8.4-10.2)
--- NOTE | 2020-05-03 08:00 | PC.NURSE ---
seizure pads placed on bed
--- NOTE | 2020-05-03 08:00 | PC.NURSE ---
seizure pads placed on pt's bed.
--- NOTE | 2020-05-03 08:57 | HMH.PHACONS ---
- Pharmacy Consult Date: 05/03/20 Time: 08:57 Referring provider: DR. PADILLA Reason for Consult:: VANCOMYCIN DOSING Allergies and ADEs:: Allergies Allergy/AdvReac Type Severity Reaction Status Date / Time codeine [CODEINE] Allergy Unknown Verified 03/08/19 11:20 Home Medications:: Home Medications Medication Instructions Recorded Confirmed Type milk thistle 150 mg capsule 360 mg PO BID cap 08/28/17 05/02/20 History Folic Acid/Vit B Complex and C 1 tab PO Q24H 05/02/20 05/02/20 History [Dialyvite Tablet] Lactulose [Lactulose 10gm/15ml 3 tsp PO DAILY 05/02/20 05/02/20 History Oral Soln] Multivitamin,Therapeutic [Therems] 1 tab PO QAM 05/02/20 05/02/20 History Propranolol HCl 10 mg PO BID 05/02/20 05/02/20 History Spironolactone 1 tab PO TID 05/02/20 05/02/20 History Height: 1.83 m Weight: 91.2 kg Laboratory Results:: Laboratory Results - last 24 hr 05/02/20 14:49: WBC 36.0 H*, RBC 4.51 L, Hgb 15.2, Hct 46.4, MCV 102.8 H, MCH 33.7 H, MCHC 32.8, RDW 14.1, Plt Count 420, MPV 8.0, Neut % (Auto) 89.2 H, Lymph % (Auto) 6.7 L, [place] % (Auto) 3.8, Eos % (Auto) 0.1, Baso % (Auto) 0.2, Neut # (Auto) 32.1 H, Lymph # (Auto) 2.4, [place] # (Auto) 1.4 H, Eos # (Auto) 0.1, Baso # (Auto) 0.1, Total Counted 100, Neutrophils % (Manual) 86 H, Lymphocytes % (Manual) 13, Monocytes % (Manual) 1 L, Platelet Estimate Normal, RBC Morphology Normal 05/02/20 14:49: Sodium 122 L, Potassium 3.9, Chloride 86 L, Carbon Dioxide 10 L, Anion Gap 29.9 H, BUN 12, Creatinine 0.80, Estimated Creat Clear 117, Estimated GFR 97, Est GFR ( Amer) 117, Glucose 229 H, Calcium 9.9, Total Bilirubin 2.7 H, AST 71 H, ALT 71, Alkaline Phosphatase 154 H, Total Protein 8.6 H, Albumin 4.7, Globulin 3.9 H, Albumin/Globulin Ratio 1.2 05/02/20 14:49: Troponin I 1.09 H 05/02/20 14:49: SARS-CoV-2 IgG Ab (Rapid) Positive A, SARS-CoV-2 IgM Ab (Rapid) Negative 05/02/20 14:49: Urine Color Yellow, Urine Appearance Clear, Urine pH 6.0, Ur Specific [place] 1.020, Urine Protein 1+, Urine Glucose (UA) Trace, Urine Ketones 1+, Urine Blood 1+, Urine Nitrate Negative, Urine Bilirubin Negative, Urine Urobilinogen 1.0, Ur Leukocyte Esterase Negative, Urine RBC None, Urine WBC None, Ur Squamous Epith Cells 3-5, Amorphous Sediment Trace, Urine Bacteria None 05/02/20 16:58: D-Dimer 2.09 05/02/20 19:19: Specimen Source Left radial, O2 % 40, ABG pH 7.44, ABG pCO2 27.3 L, ABG pO2 120.2 H, ABG HCO3 18.1 L, ABG Total CO2 19.0 L, ABG O2 Saturation 99, ABG Base Excess -6.0 L, Efra Test Patient unable, Vent Rate 20, Tidal Volume 440, PEEP 5 05/02/20 21:05: Lactate 1.4 05/03/20 05:55: WBC 23.1 H* D, RBC 3.81 L, Hct 37.1 L, MCV 97.3 H, MCH 34.0 H, MCHC 35.0, RDW 14.0, Plt Count 325, MPV 8.8, Neut % (Auto) 90.2 H, Lymph % (Auto) 4.5 L, [place] % (Auto) 5.2, Eos % (Auto) 0.0 L, Baso % (Auto) 0.1, Neut # (Auto) 20.9 H, Lymph # (Auto) 1.0, [place] # (Auto) 1.2 H, Eos # (Auto) 0.0, Baso # (Auto) 0.0 05/03/20 05:55: Sodium 128 L, Potassium 4.0, Chloride 101, Carbon Dioxide 22 D, Anion Gap 9.0, BUN 15, Creatinine 0.70, Estimated Creat Clear 94, Estimated GFR 113, Est GFR ( Amer) 137, Glucose 139 H D, Calcium 8.7 D, Total Bilirubin 1.3, AST 58, ALT 35 D, Alkaline Phosphatase 117, Total Protein 6.1 L D, Albumin 3.1 L D, Globulin 3.0, Albumin/Globulin Ratio 1.0 L 05/03/20 06:26: Specimen Source Right brachial, O2 % 30, ABG pH 7.49 H, ABG pCO2 25.3 L, ABG pO2 67.7 L, ABG HCO3 18.7 L, ABG Total CO2 19.5 L, ABG O2 Saturation 94, ABG Base Excess -4.7 L, Efra Test Patient unable, Vent Rate 16, Tidal Volume 450, PEEP 5 Medical History: Reports:: Hypertension Assessment and Plan (1) STEMI (ST elevation myocardial infarction) Status: Ruled-out Category: Medical Code(s): I21.3 - ST elevation (STEMI) myocardial infarction of unspecified site (2) Cirrhosis of liver Status: Acute Category: Medical Code(s): K74.60 - Unspecified cirrhosis of liver (3) Alcohol abuse Status: Acute Category: Social Hx Code(s)
[2020-05-03 08:59] LABS: Lymphocytes % 10 % (10-50); Monocytes % 5 % (2-9); Neutrophils % 85 % (42-76); Platelet Estimate Normal; RBC Morphology Normal; Total Cells Counted 100
--- NOTE | 2020-05-03 09:07 | PC.NURSE ---
EEG @ BS. RT (Pam) @ .
--- NOTE | 2020-05-03 10:11 | PC.NURSE ---
notified Dr. Crane of blood cx results (group B strep and gram + cocci)
--- NOTE | 2020-05-03 10:18 | HMH.PHAINT ---
HOME MEDICATIONS RECONCILED FROM CLINIC PHARMACY FILL LIST AND SPEAKING WITH SPOUSE AND DAUGHTER. PATIENT TAKES LACTULOSE ONCE DAILY ALTHOUGH IT IS ORDERED THREE TIMES A DAY. HE ALSO STOPPED PROPRANOLOL SEVERAL MONTHS AGO DUE TO B/P TOO LOW.
[2020-05-03 10:50] LABS: Ammonia 22 umol/L (9-30)
--- NOTE | 2020-05-03 11:00 | PC.NURSE ---
Dr. Angel @ BS to complete LP.
[2020-05-03 11:22] LABS: Thyroid Stimulating Hormone 1.36 uIU/mL (0.465-4.68)
--- NOTE | 2020-05-03 11:36 | HMH.CONS ---
*Admission Date: 05/02/20 (T) *Reason for consult:: Ventilator management/internal medicine specialty consult *History of present illness: Please see my H&P for yesterday regarding patient's presentation. Briefly patient presented with respiratory arrest at home after some mental status changes and a possible seizure. ST elevation prompted left heart cath that was essentially unrevealing for cardiogenic causes of arrest. Lung CTA negative for PE, and patient was transferred to ICU ventilated. Please see my notes from yesterday. I am now following patient for medicine consult, ventilator management, etc. [facility] History I have reviewed the patient's past medical history: Yes Medical History: Reports:: Hypertension *Have you ever received a pneumonia vaccine?: No *Have you received a flu vaccine this season?: No Other Medical History: Reports: Sinus Problems Other Surgeries: Yes: Appendectomy, Sinus Surgery, Other Amputation: No Fractures: No - *Social History Smoking Status: Current every day smoker Tobacco Type: cigarettes # Packs/Day (cigarettes): 1 Alcohol Intake: never Alcohol Intake Frequency:: a few times a month Substance Use Type: denies use *Occupational Status:: retired Housing: house Household Members: spouse *Travel in the last 8 weeks: None Family Hx:: Kidney Disease, Cancer Review of Systems - Review of Systems Review of systems:: unable to obtain - *Neurologic Reports abnormal walking, Reports lack of coordination, Denies seizure-like activity Meds Home Medications Medication Instructions Recorded Confirmed Type Lactulose [Lactulose 10gm/15ml 3 tsp PO DAILY 05/02/20 05/03/20 History Oral Soln] Spironolactone 50 mg PO TID 05/02/20 05/03/20 History Multivitamin [Daily Multiple 1 each PO DAILY 05/03/20 05/03/20 History Vitamin] Allergies Allergy/AdvReac Type Severity Reaction Status Date / Time codeine [CODEINE] Allergy Unknown Unknown Verified 05/03/20 10:18 allergy reaction nicotine AdvReac Severe Unknown Verified 05/03/20 10:18 allergy reaction Exam Vital signs and Labs for Last 24 Hours: Temp Pulse Resp BP Pulse Ox 98.6 F 94 H 26 H 164/107 H 89 L 05/03/20 08:00 05/03/20 10:00 05/03/20 10:00 05/03/20 10:00 05/03/20 10:00 Laboratory Results - last 24 hr 05/02/20 14:49: WBC 36.0 H*, RBC 4.51 L, Hgb 15.2, Hct 46.4, MCV 102.8 H, MCH 33.7 H, MCHC 32.8, RDW 14.1, Plt Count 420, MPV 8.0, Neut % (Auto) 89.2 H, Lymph % (Auto) 6.7 L, [place] % (Auto) 3.8, Eos % (Auto) 0.1, Baso % (Auto) 0.2, Neut # (Auto) 32.1 H, Lymph # (Auto) 2.4, [place] # (Auto) 1.4 H, Eos # (Auto) 0.1, Baso # (Auto) 0.1, Total Counted 100, Neutrophils % (Manual) 86 H, Lymphocytes % (Manual) 13, Monocytes % (Manual) 1 L, Platelet Estimate Normal, RBC Morphology Normal 05/02/20 14:49: Sodium 122 L, Potassium 3.9, Chloride 86 L, Carbon Dioxide 10 L, Anion Gap 29.9 H, BUN 12, Creatinine 0.80, Estimated Creat Clear 117, Estimated GFR 97, Est GFR ( Amer) 117, Glucose 229 H, Calcium 9.9, Total Bilirubin 2.7 H, AST 71 H, ALT 71, Alkaline Phosphatase 154 H, Total Protein 8.6 H, Albumin 4.7, Globulin 3.9 H, Albumin/Globulin Ratio 1.2 05/02/20 14:49: Troponin I 1.09 H 05/02/20 14:49: SARS-CoV-2 IgG Ab (Rapid) Positive A, SARS-CoV-2 IgM Ab (Rapid) Negative 05/02/20 14:49: Urine Color Yellow, Urine Appearance Clear, Urine pH 6.0, Ur Specific [place] 1.020, Urine Protein 1+, Urine Glucose (UA) Trace, Urine Ketones 1+, Urine Blood 1+, Urine Nitrate Negative, Urine Bilirubin Negative, Urine Urobilinogen 1.0, Ur Leukocyte Esterase Negative, Urine RBC None, Urine WBC None, Ur Squamous Epith Cells 3-5, Amorphous Sediment Trace, Urine Bacteria None 05/02/20 16:58: D-Dimer 2.09 05/02/20 19:19: Specimen Source Left radial, O2 % 40, ABG pH 7.44, ABG pCO2 27.3 L, ABG pO2 120.2 H, ABG HCO3 18.1 L, ABG Total CO2 19.0 L, ABG O2 Saturation 99, ABG Base Excess -6.0 L, Efra Test Patient unable, Vent Rate 20, Tidal Volume 44
--- NOTE | 2020-05-03 11:42 | PC.NURSE ---
Dr Crnae notified that second blood cx is growing strep B.
--- NOTE | 2020-05-03 12:01 | PC.NURSE ---
Propofol gtt started based on wt of 91.2kg @ 5mcg/kg/min (2.7ml/hr).
--- NOTE | 2020-05-03 12:02 | HMH.PULMCON ---
*Admission Date: 05/02/20 (T) *History of present illness: 64-year-old male with past medical history of hypertension, significant smoking peripheral vascular disease as per chart review was brought to the ED complaining of frequent falls along with a questionable seizure episode and unresponsiveness, EMS found patient unresponsive with nasal intubation presented. During which she was found to be in ST elevation and was sent to the [facility] where he has found to have clean coronaries but significant peripheral vascular disease. CT head was also performed during admission which was negative for any intracranial bleeding. Patient was eventually admitted to the ICU for mechanical ventilatory support and pulmonary was called for further management. Talk to the patient at bedside, patient was found to be altered and explains multiple falls and had a bowel and bladder incontinent with questionable seizure episode before EMS was called. Patient is also a chronic smoker more than [id number] smoking see but not using any inhalers at baseline. Patient is also alcoholic, he drinks 2-[address] [facility] History Medical History: Reports:: Hypertension *Have you ever received a pneumonia vaccine?: No *Have you received a flu vaccine this season?: No Other Medical History: Reports: Sinus Problems Other Surgeries: Yes: Appendectomy, Sinus Surgery, Other Amputation: No Fractures: No - *Social History Smoking Status: Current every day smoker Tobacco Type: cigarettes # Packs/Day (cigarettes): 1 Alcohol Intake: never Alcohol Intake Frequency:: a few times a month Substance Use Type: denies use *Occupational Status:: retired Housing: house Household Members: spouse *Travel in the last 8 weeks: None Family Hx:: Kidney Disease, Cancer ROS - Review of Systems Review of systems unable to obtain as patient was met sedated and mechanically ventilated Meds Home Medications Medication Instructions Recorded Confirmed Type Lactulose [Lactulose 10gm/15ml 3 tsp PO DAILY 05/02/20 05/03/20 History Oral Soln] Spironolactone 50 mg PO TID 05/02/20 05/03/20 History Multivitamin [Daily Multiple 1 each PO DAILY 05/03/20 05/03/20 History Vitamin] Allergies Allergy/AdvReac Type Severity Reaction Status Date / Time codeine [CODEINE] Allergy Unknown Unknown Verified 05/03/20 10:18 allergy reaction nicotine AdvReac Severe Unknown Verified 05/03/20 10:18 allergy reaction Exam - Constitutional Constitutional:: no acute distress, comfortable - HENMT Exam HENMT: normocephalic - Eye Exam Eyes:: eyelids normal, normal conjunctiva Comment:: Bilateral equal pinpoint pupils reactive to light - Neck Exam Neck:: thyroid normal, no lymphadenopathy - Respiratory Exam Comments: Nasal intubated. Bilateral clear breath sounds with no audible wheeze. - Cardiovascular Exam Cardiac:: S1, S2 - GI Exam GI:: soft, no hepatosplenomegaly - Skin Exam Skin: warm, no rash - Neurological Exam Intubated and sedated. Appears comfortable. As per the nurse patient was able to follow commands this morning - Extremities Exam Extremities: no cyanosis, no clubbing, no edema Internal Medicine - CN: Reslt - Labs CBC & Chem 7: 05/03/20 05:55 05/03/20 05:55 Labs: Short CBC 05/02/20 05/03/20 Range/Units 14:49 05:55 WBC 36.0 H* 23.1 H* D (4.8-10.8) K/mm3 Hgb 15.2 13.0 L D (14.1-18.0) g/dL Hct 46.4 37.1 L (42.0-52.0) % Plt Count 420 325 (142-424) K/mm3 BMP 05/02/20 05/03/20 14:49 05:55 Sodium 122 L 128 L Potassium 3.9 4.0 Chloride 86 L 101 Carbon Dioxide 10 L 22 D BUN 12 15 Creatinine 0.80 0.70 Glucose 229 H 139 H D Calcium 9.9 8.7 D Cardiac Enzymes 05/02/20 Range/Units 14:49 Troponin I 1.09 H (0.00-0.034) ng/ml Liver Function 05/02/20 05/03/20 Range/Units 14:49 05:55 Total Bilirubin 2.7 H 1.3 (0.2-1.3) mg/dl AST 71 H 58 (17-
--- NOTE | 2020-05-03 12:36 | PC.NURSE ---
Pt is agitated and restless. Attempting to pull out nasal tube. Propofol gtt increased to 20mcg/kg/min.
[2020-05-03 12:47] LABS: Appearance,CSF Turbid (Clear)
[2020-05-03 12:48] LABS: Red Blood Cell,CSF 1072 cells/uL (0); Volume,CSF 8 mL; White Blood Cell,CSF 9762 cells/uL (0-5)
--- NOTE | 2020-05-03 13:11 | PC.NURSE ---
notified Dr. Guevara of CSF total protein 8735
--- NOTE | 2020-05-03 13:11 | PC.NURSE ---
Dr. Lee @ BS. He decreased TV to 420. He ordered NS @ 100ml/hr secondary to hyponatremia.
[2020-05-03 13:14] LABS: Mononuclear WBCs,CSF 31 %; Polynuclear WBCs,CSF 69 %
--- NOTE | 2020-05-03 13:38 | PC.NURSE ---
received call from Dr. Lee ordering to advance nasal endotracheal tube by 2cm. Called RT (Devorah) and gave her order.
--- NOTE | 2020-05-03 14:15 | PC.NURSE ---
Advanced ETtube to 27cm at the nare Per Dr. Lee. Pt tolerated well.
--- NOTE | 2020-05-03 14:25 | PC.NURSE ---
Fentanyl gtt started @ 25mcg/hr
--- NOTE | 2020-05-03 14:28 | PC.NURSE ---
notified Dr. Guevara that gram stain CSF too numerous to count
[2020-05-03 15:39] LABS: Glucose,CSF 33 mg/dl (40-70)
--- NOTE | 2020-05-03 15:39 | PC.NURSE ---
notified Dr. Guevara of CSF glucose 33.
--- NOTE | 2020-05-03 18:26 | HMH.ACPN2 ---
Internal Medicine - PN: Subj *Date: 05/03/20 *Time: 18:32 Interval history: Patient remained intubated this morning. He had received a dose of Versed prior to being seen by us. Vent settings overnight were stable. Was taken to the [facility] by Dr. Smith, there were no occlusive coronary lesions. There is a possibility of a seizure disorder, and EEG was done this morning. Patient has peripheral vascular disease, DP on the right was barely palpable, PT on the right was not palpable. DP and PT on the left were not manually palpable. There is however no ischemic demarcation. She has known to be a heavy smoker. Since daughter was in the room this morning. She denies a history of seizures. We arranged for fluoroscopic guided lumbar puncture. Results of CSF culture are pending. There is however noted to be a markedly elevated white count, low glucose, and elevated protein. Patient's blood culture is also growing out some gram-positive cocci in chains. Final ID on this is pending. Exam Vital signs and Labs for Last 24 Hours: Temp Pulse Resp BP Pulse Ox 98.8 F 77 24 123/64 96 05/03/20 16:00 05/03/20 18:00 05/03/20 18:00 05/03/20 18:00 05/03/20 18:00 Laboratory Results - last 24 hr 05/02/20 19:19: Specimen Source Left radial, O2 % 40, ABG pH 7.44, ABG pCO2 27.3 L, ABG pO2 120.2 H, ABG HCO3 18.1 L, ABG Total CO2 19.0 L, ABG O2 Saturation 99, ABG Base Excess -6.0 L, Efra Test Patient unable, Vent Rate 20, Tidal Volume 440, PEEP 5 05/02/20 21:05: Lactate 1.4 05/03/20 05:55: WBC 23.1 H* D, RBC 3.81 L, Hgb 13.0 L D, Hct 37.1 L, MCV 97.3 H, MCH 34.0 H, MCHC 35.0, RDW 14.0, Plt Count 325, MPV 8.8, Neut % (Auto) 90.2 H, Lymph % (Auto) 4.5 L, [place] % (Auto) 5.2, Eos % (Auto) 0.0 L, Baso % (Auto) 0.1, Neut # (Auto) 20.9 H, Lymph # (Auto) 1.0, [place] # (Auto) 1.2 H, Eos # (Auto) 0.0, Baso # (Auto) 0.0, Total Counted 100, Neutrophils % (Manual) 85 H, Lymphocytes % (Manual) 10, Monocytes % (Manual) 5, Platelet Estimate Normal, RBC Morphology Normal 05/03/20 05:55: Sodium 128 L, Potassium 4.0, Chloride 101, Carbon Dioxide 22 D, Anion Gap 9.0, BUN 15, Creatinine 0.70, Estimated Creat Clear 94, Estimated GFR 113, Est GFR ( Amer) 137, Glucose 139 H D, Calcium 8.7 D, Total Bilirubin 1.3, AST 58, ALT 35 D, Alkaline Phosphatase 117, Total Protein 6.1 L D, Albumin 3.1 L D, Globulin 3.0, Albumin/Globulin Ratio 1.0 L 05/03/20 06:26: Specimen Source Right brachial, O2 % 30, ABG pH 7.49 H, ABG pCO2 25.3 L, ABG pO2 67.7 L, ABG HCO3 18.7 L, ABG Total CO2 19.5 L, ABG O2 Saturation 94, ABG Base Excess -4.7 L, Efra Test Patient unable, Vent Rate 16, Tidal Volume 450, PEEP 5 05/03/20 10:26: Ammonia 22 05/03/20 10:26: TSH 1.36 05/03/20 11:25: CSF Volume 8, CSF Appearance Turbid, CSF WBC 9762 H, CSF RBC 1072, CSF Mononuclear WBCs % 31, CSF Polynuclear WBCs % 69 05/03/20 11:25: CSF Glucose 33 L, CSF Total Protein 1550.0 H* I & O for Last 24 hours: Intake & Output 04/30/20 05/01/20 05/02/20 05/03/20 23:59 23:59 23:59 23:59 Intake Total 2680 / 2680 53 / 53 Output Total 3450 / 3750 870 / 870 Balance -770 / -1070 -817 / -817 Weight 199 lb 1.6 oz 201 lb 1 oz Microbiology Reports for the Last 24 Hours: Microbiology 05/03/20 11:25 Cerebral Spinal Fluid Gram Stain - Final 05/02/20 21:15 Blood Blood Culture - Preliminary 05/02/20 18:55 Sputum - Endotracheal Tube Aspirate Gram Stain - Final 05/02/20 18:55 Sputum - Endotracheal Tube Aspirate Sputum Culture - Preliminary 05/02/20 21:15 Blood Blood Culture - Preliminary - Constitutional somnolent, obtunded - *Routine HEENT Exam Head: Present: normocephalic Eye: Present: EOMI, PERRL ENT: Present: mucous membranes moist - *Routine Neck Exam Present: trachea midline. Absent: swelling - *Routine Respiratory Exam Present: patient mechanically ventilated - *Routine Cardiovascular Exam Present: RRR - *Routine Abdominal Exam Present: soft, normoactive b
[2020-05-04] VITALS (35 sets, daily range): BP systolic 106–150; BP diastolic 57–100; PULSE 69–110; RESP 0–23; TEMP 36.9–37.9; O2SAT 91–100
--- NOTE | 2020-05-04 01:14 | PC.NURSE ---
He is in droplet precautions r/t meningitis. He is intubated and sedated. NSR on telemetry. He received a complete bed bath and linen change. DSGs on bilateral groin are C/D/I with purple bruise around DSG on left side. He has a large purple bruise on this right side stretching towards his back. Vent Settings are AC mode: TV 420, PEEP 5, Rate 16, and 30% FiO2. vEnt in on AC mode with a 7.0 Trumpet in his right nare. He is voiding per f/c. Urine is yellow, clear. Spider varicosities noted to bilateral feet. Areas luis on BLE for doppler use. He continues in seizure precautions.
--- NOTE | 2020-05-04 05:00 | XR_ITS ---
PROCEDURE: XR CHEST PORTABLE CLINICAL HISTORY: Pt intubated. COMPARISON: CR CXR1 CHEST-PORTABLE from 08/13/2015 CR XR CHEST AP from 05/02/[address] ANGIO CHEST from 05/02/2020 CR XR CHEST PORTABLE from 05/03/2020 FINDINGS: The endotracheal tube is now 6 cm above the luis. The lung wong are fairly well expanded for supine portable film. There is some crowding of the vascular markings at the left base but no definite pneumonic infiltrate is seen in either lung field. Cardiac size is stable and there is no pulmonary congestion. IMPRESSION: Endotracheal tube 6 cm above the luis, no definite pneumonic infiltrate seen Dictated by: Dr. Francisco Benjamin MD 05/04/2020 08:44 Dr. Francisco Benjamin MD in [place] 05/04/2020 08:44
[2020-05-04 06:01] LABS: Basophils % 0.1 % (0.1-2.0); Eosinophils % 0.1 % (0.1-12.0); Hematocrit 35.7 % (42.0-52.0); Hemoglobin 12.3 g/dL (14.1-18.0); Lymphocytes # 1.1 K/mm3 (0.7-4.5); Lymphocytes % 6.5 % (10-50); Mean Corpuscular HGB Conc 34.4 g/dL (31.8-35.4); Mean Corpuscular Hemoglobin 34.3 pg (27.0-31.2); Mean Corpuscular Volume 99.6 fl (80-94); Mean Platelet Volume 8.6 fl (7.4-10.4); Monocytes # 1.1 K/mm3 (0.1-1.0); Monocytes % 6.3 % (1.7-9.3); Neutrophils # 14.7 K/mm3 (1.8-7.8); Platelet Count 282 K/mm3 (142-424); Red Blood Count 3.58 M/mm3 (4.60-6.20); Red Cell Distribution Width 14.4 % (11.5-17.5); White Blood Count 16.8 K/mm3 (4.8-10.8)
[2020-05-04 06:03] LABS: MANUAL DIFFERENTIAL MANUAL DIFFERENTIAL (MANUAL DIFF)
[2020-05-04 06:04] LABS: Chloride 105 mmol/L (98-107); Potassium 3.7 mmoL/L (3.5-5.1); Sodium 133 mmol/L (136-145)
[2020-05-04 06:07] LABS: Alanine Aminotransferase 32 U/L (12-78); Albumin Level 2.9 g/dl (3.5-5.0); Alkaline Phosphatase 97 U/L (38-126); Anion Gap 10.7 mEq/L (5-15); Aspartate Amino Transferase 49 U/L (17-59); Blood Urea Nitrogen 19 mg/dl (9-20); Calcium 8.3 mg/dl (8.4-10.2); Carbon Dioxide 21 mmol/L (22.0-30.0); Creatinine Clearance Estimated 94 mL/min (50-200); Estimated Glomerular Filt Rate 113 ml/min (>60); GFR (African American) 137 ML/MIN (>60); Globulin 2.9 g/dL (1.3-3.2); Glucose 138 mg/dl (74-100); Total Protein,Serum 5.8 g/dl (6.3-8.2)
[2020-05-04 07:00] LABS: Lymphocytes % 5 % (10-50); Monocytes % 4 % (2-9); Neutrophils % 91 % (42-76); Platelet Estimate Normal; RBC Morphology Normal; Total Cells Counted 100
[2020-05-04 07:45] LABS: ABG Base Excess -4.9 mmol/L (-2.4-2.3); ABG HCO3 19.7 mmhg (22.0-26.0); ABG Oxygen Saturation 96 % (90-100); ABG PCO2 31.7 mmhg (35.0-45.0); ABG PH 7.41 mmol/L (7.35-7.45); ABG PO2 81.4 mmhg (80-100); ABG TCO2 20.7 mmhg (23-27)
[2020-05-04 07:46] LABS: Allen's Test Patient Unable; Oxygen 30% %; PEEP 5; Source L RADIAL; Tidal Volume 420; Vent Rate 18
--- NOTE | 2020-05-04 10:04 | PC.NURSE ---
placed pt in simv per at this time. Advanced et tube back to 27 at tip on right nare with tape.
--- NOTE | 2020-05-04 10:04 | HMH.ACPN2 ---
Internal Medicine - PN: Sangeeta *Date: 05/04/20 *Time: 10:04 Interval history: Internal medicine consult note follow-up: Patient has remained clinically stable overnight. Blood pressure and pulse have been stable. Patient remains sedated and intubated. Minimal settings in regards to pressure on ventilator. Patient is spontaneously breathing in the rates of 18 or so. No pressure alarms. Labs reviewed, culture reviewed, discussed case with pulmonary service and family at bedside. Exam Vital signs and Labs for Last 24 Hours: Temp Pulse Resp BP Pulse Ox 98.4 F 69 23 118/65 99 05/04/20 06:38 05/04/20 06:38 05/04/20 06:38 05/04/20 06:38 05/04/20 06:38 Laboratory Results - last 24 hr 05/02/20 21:05: Lactate 1.4 05/03/20 10:26: Ammonia 22 05/03/20 10:26: TSH 1.36 05/03/20 11:25: CSF Volume 8, CSF Appearance Turbid, CSF WBC 9762 H, CSF RBC 1072, CSF Mononuclear WBCs % 31, CSF Polynuclear WBCs % 69 05/03/20 11:25: CSF Glucose 33 L, CSF Total Protein 1550.0 H* 05/04/20 05:35: WBC 16.8 H D, RBC 3.58 L, Hgb 12.3 L, Hct 35.7 L, MCV 99.6 H, MCH 34.3 H, MCHC 34.4, RDW 14.4, Plt Count 282, MPV 8.6, Neut % (Auto) 87.0 H, Lymph % (Auto) 6.5 L, [place] % (Auto) 6.3, Eos % (Auto) 0.1, Baso % (Auto) 0.1, Neut # (Auto) 14.7 H, Lymph # (Auto) 1.1, [place] # (Auto) 1.1 H, Eos # (Auto) 0.0, Baso # (Auto) 0.0, Total Counted 100, Neutrophils % (Manual) 91 H, Lymphocytes % (Manual) 5 L, Monocytes % (Manual) 4, Platelet Estimate Normal, RBC Morphology Normal 05/04/20 05:35: Sodium 133 L, Potassium 3.7, Chloride 105, Carbon Dioxide 21 L, Anion Gap 10.7, BUN 19 D, Creatinine 0.70, Estimated Creat Clear 94, Estimated GFR 113, Est GFR ( Amer) 137, Glucose 138 H, Calcium 8.3 L, Total Bilirubin 1.0, AST 49, ALT 32, Alkaline Phosphatase 97, Total Protein 5.8 L, Albumin 2.9 L, Globulin 2.9, Albumin/Globulin Ratio 1.0 L 05/04/20 06:00: Specimen Source L radial, O2 % 30%, ABG pH 7.41, ABG pCO2 31.7 L, ABG pO2 81.4, ABG HCO3 19.7 L, ABG Total CO2 20.7 L, ABG O2 Saturation 96, ABG Base Excess -4.9 L, Efra Test Patient unable, Vent Rate 18, Tidal Volume 420, PEEP 5 I & O for Last 24 hours: Intake & Output 05/01/20 05/02/20 05/03/20 05/04/20 11:59 11:59 11:59 11:59 Intake Total 2733 / 2733 3177.625 / 3177.625 Output Total 4140 / 4210 740 / 740 Balance -1407 / -1477 2437.625 / 2437.625 Weight 201 lb 1 oz Microbiology Reports for the Last 24 Hours: Microbiology 05/02/20 21:15 Blood Blood Culture - Preliminary Gram Positive Cocci 05/02/20 21:15 Blood Blood Culture - Preliminary Gram Positive Cocci 05/02/20 18:55 Sputum - Endotracheal Tube Aspirate Gram Stain - Final 05/02/20 18:55 Sputum - Endotracheal Tube Aspirate Sputum Culture - Preliminary 05/03/20 11:25 Cerebral Spinal Fluid Gram Stain - Final Narrative: Intubated and sedated. Lungs with good air movement. Heart rate regular. Abdomen soft. Peripheral pulses in the legs are absent. Brawny skin changes. No focal neurologic findings, eye reflexes and gag reflex intact. Assessment and Plan (1) STEMI (ST elevation myocardial infarction) Status: Ruled-out Category: Medical Code(s): I21.3 - ST elevation (STEMI) myocardial infarction of unspecified site (2) Cirrhosis of liver Status: Acute Category: Medical Code(s): K74.60 - Unspecified cirrhosis of liver (3) Alcohol abuse Status: Acute Category: Social Hx Code(s): F10.10 - Alcohol abuse, uncomplicated (4) Elevated liver enzymes Status: Acute Category: Medical Code(s): R74.8 - Abnormal levels of other serum enzymes (5) Hypertension Status: Acute Qualifiers: Hypertension type: essential hypertension Qualified Code(s): I10 - Essential (primary) hypertension Category: Medical Code(s): I10 - Essential (primary) hypertension (6) Respiratory arrest Status: Acute Category: Medical Code(s): R09.2 - Resp
[2020-05-04 10:56] LABS: Vancomycin,Trough 12.8 ug/mL (5.0-10.0)
--- NOTE | 2020-05-04 11:16 | DIET.NUTRFU ---
Addendum entered by Janet Weeks 05/06/20 10:40: Pt tolerating TF well, advanced to goal rate. Within energy, protein, and fluid needs. no changes to order at this time, continuing to monitor. Addendum entered by Janet Weeks 05/04/20 16:24: IVF DCd, give water flushes of 160ml q 4hr to meet additional fluid needs. Changed in TF order. Will monitor and adjust as indicated. Original Note: Nutritional assessment, IP/consult completed. Pt intubated and sedated, NG placed, RD consulted for nutrition support. Per ESPEN guidelines, pt with high enery/protein needs rt cirrhosis and severe infection.([id number]) Recommend initiating continuous tube feeding regimen of Osmolite 1.2 at 20ml/hr and increase by 10ml/hr q 8hrs as tolerated to goal rate of 89ml/hr. Pt recieving IVF, currently at 100ml/hr. Formula at goal rate provides 1610ml/d free water. Recommend decreasing IVF rate as tolerated as pt progresses to goal rate. Give minimal water flushes of 60ml for tube irrigation. Will monitor IVF and adjust as indicated. Pt recieving Propofol, providing minimal kcal at this time, will monitor to adjust as indicated. This regimen meets needs providing 2357kcal, 109g protein, 309g cho, and 77g fat. Will monitor pt and adjust as indicated.
--- NOTE | 2020-05-04 11:28 | XR_ITS ---
PROCEDURE: XR CHEST PORTABLE Referring Doctor: Luigi Crane Patient Age:64Y CLINICAL HISTORY: ng Intubated. Follow-up COMPARISON: CT CT ANGIO CHEST from 05/02/2020 CR XR CHEST AP from 05/02/2020 CR XR CHEST PORTABLE from 05/03/2020 CR XR CHEST PORTABLE from 05/04/2020 FINDINGS: AP portable chest-suspect supine as I do not see gastric bubble ET tube 6 cm above luis. History states NG-but no NG tube evident on these submitted images On today's study there is hazy density minimal airspace disease at the right lower lobe reflecting atelectasis with possible minimal developing infiltrate RLL. The left lung is clear. The right upper lung field clear Mild engorgement upper lobe vessels mild cephalization appearance could reflect of merely the supine position. Question some mild vascular engorgement otherwise No discrete pleural effusions; no pneumothorax. Calcified aortic knob. IMPRESSION: ET tube remains satisfactory position 6 cm above luis Today's history states NG-but no NG tube evident on these submitted images. Correlation required Increased hazy density RLL, developing airspace disease RLL- reflecting atelectasis and a possible developing infiltrate Dictated by: Jaspreet Angel MD 05/04/2020 12:18 Jaspreet Angel MD in [place] 05/04/2020 12:18
--- NOTE | 2020-05-04 13:39 | HMH.PHACONS ---
- Pharmacy Consult Date: 05/04/20 Time: 13:39 Referring provider: DR. PADILLA Reason for Consult:: VANCOMYCIN LEVEL Allergies and ADEs:: Allergies Allergy/AdvReac Type Severity Reaction Status Date / Time codeine [CODEINE] Allergy Unknown Unknown Verified 05/03/20 10:18 allergy reaction nicotine AdvReac Severe Unknown Verified 05/03/20 10:18 allergy reaction Home Medications:: Home Medications Medication Instructions Recorded Confirmed Type Lactulose [Lactulose 10gm/15ml 3 tsp PO DAILY 05/02/20 05/03/20 History Oral Soln] Spironolactone 50 mg PO TID 05/02/20 05/03/20 History Multivitamin [Daily Multiple 1 each PO DAILY 05/03/20 05/03/20 History Vitamin] Height: 1.83 m Weight: 91.2 kg Laboratory Results:: Laboratory Results - last 24 hr 05/02/20 21:05: Lactate 1.4 05/03/20 11:25: CSF Glucose 33 L, CSF Total Protein 1550.0 H* 05/04/20 05:35: WBC 16.8 H D, RBC 3.58 L, Hgb 12.3 L, Hct 35.7 L, MCV 99.6 H, MCH 34.3 H, MCHC 34.4, RDW 14.4, Plt Count 282, MPV 8.6, Neut % (Auto) 87.0 H, Lymph % (Auto) 6.5 L, [place] % (Auto) 6.3, Eos % (Auto) 0.1, Baso % (Auto) 0.1, Neut # (Auto) 14.7 H, Lymph # (Auto) 1.1, [place] # (Auto) 1.1 H, Eos # (Auto) 0.0, Baso # (Auto) 0.0, Total Counted 100, Neutrophils % (Manual) 91 H, Lymphocytes % (Manual) 5 L, Monocytes % (Manual) 4, Platelet Estimate Normal, RBC Morphology Normal 05/04/20 05:35: Sodium 133 L, Potassium 3.7, Chloride 105, Carbon Dioxide 21 L, Anion Gap 10.7, BUN 19 D, Creatinine 0.70, Estimated Creat Clear 94, Estimated GFR 113, Est GFR ( Amer) 137, Glucose 138 H, Calcium 8.3 L, Total Bilirubin 1.0, AST 49, ALT 32, Alkaline Phosphatase 97, Total Protein 5.8 L, Albumin 2.9 L, Globulin 2.9, Albumin/Globulin Ratio 1.0 L 05/04/20 06:00: Specimen Source L radial, O2 % 30%, ABG pH 7.41, ABG pCO2 31.7 L, ABG pO2 81.4, ABG HCO3 19.7 L, ABG Total CO2 20.7 L, ABG O2 Saturation 96, ABG Base Excess -4.9 L, Efra Test Patient unable, Vent Rate 18, Tidal Volume 420, PEEP 5 05/04/20 09:49: Vancomycin Trough 12.8 H Medical History: Reports:: Hypertension Assessment and Plan (1) STEMI (ST elevation myocardial infarction) Status: Ruled-out Category: Medical Code(s): I21.3 - ST elevation (STEMI) myocardial infarction of unspecified site (2) Cirrhosis of liver Status: Acute Category: Medical Code(s): K74.60 - Unspecified cirrhosis of liver (3) Alcohol abuse Status: Acute Category: Social Hx Code(s): F10.10 - Alcohol abuse, uncomplicated (4) Elevated liver enzymes Status: Acute Category: Medical Code(s): R74.8 - Abnormal levels of other serum enzymes (5) Hypertension Status: Acute Qualifiers: Hypertension type: essential hypertension Qualified Code(s): I10 - Essential (primary) hypertension Category: Medical Code(s): I10 - Essential (primary) hypertension (6) Respiratory arrest Status: Acute Category: Medical Code(s): R09.2 - Respiratory arrest (7) Unresponsive state Status: Acute Category: Medical Code(s): R41.89 - Other symptoms and signs involving cognitive functions and awareness (8) Meningitis Status: Acute Category: Medical Code(s): G03.9 - Meningitis, unspecified - Assessment and plan all Dx Assessment and Plan for all problems:: BASED ON PATIENT'S VANCOMYCIN TROUGH LEVEL OF 12.8 MCG/ML, RECOMMEND CONTINUING WITH VANCOMYCIN 2 GM Q12H AT THIS TIME. PHARMACY WILL FOLLOW DAILY AND ADJUST APPROPRIATE.
--- NOTE | 2020-05-04 13:56 | XR_ITS ---
PROCEDURE: XR SINUS MIN 3V Referring Doctor: Luigi Crane Patient Age:64Y CLINICAL INDICATION: FINDING NG TUBE COMPARISON: CT CT HEAD/BRAIN WO CON from 05/02/2020 FINDINGS: The NG tube was placed earlier but was not not seen on the this morning CXR understand from our x-ray technologist at the NG tube NG tube apparently had difficulty in being pulled out and thus images were obtained to verify its location.. The NG tube is seen looping in the right oral pharynx with tip directed upward towards the posterior-most the nasal pharynx.. The naso the the tracheal tube is seen entering nose and passing through the posterior nasopharynx/oropharynx and neck as extends inferiorly the The the otherwise I would note there is some opacity mild increased density at the left maxillary sinus on today's plain film studies of questionable significance as this left maxillary sinus appeared cleared on yesterday's CT head the the study. The the frontal ethmoid and right maxillary sinus unremarkable the on a limited plain film . The IMPRESSION: The NG tube loops in the right oropharynx with tip directed and continuing upward towards into the posterior nasopharynx The nasotracheal tube of satisfactory position. Dictated by: Jaspreet Angel MD 05/04/2020 14:52 Jaspreet Angel MD in [place] 05/04/2020 14:52
--- NOTE | 2020-05-04 13:57 | XR_ITS ---
PROCEDURE: XR CHEST PORTABLE-#2 at 11:45 a.m. Referring Doctor: Luigi Crane Patient Age:64Y CLINICAL HISTORY: NEW NG TUBE PLACEMENT COMPARISON: CT CT ANGIO CHEST from 05/02/2020 CR XR CHEST PORTABLE from 05/03/2020 CR XR CHEST PORTABLE from 05/04/2020 CR XR CHEST PORTABLE from 05/04/2020 FINDINGS: AP portable chest supine at 11:45. Comparison is made to early a.m. study The NG tube is now seen passing appropriately through GE junction and partially looping at the proximal stomach. Good position of NG tube There is interstitial coarsening bilaterally which primary reflects chronic changes but difficult to exclude mild interstitial edema but the heart is normal in size and there are no pericardial effusions Could not exclude some pulmonary vascular prominence and engorgement; some of these features could be in part due to hyperproteinemia The hazy appearance at the right lung base noted on previous exam earlier today is less evident on this follow-up study.-thus I suspect we are mainly viewing atelectasis which has partially re-expanded. .. IMPRESSION: . NG tube now and satisfactory position . ET tube remains in good position-tip 6.6 cm above luis. The hazy appearance at the right lower lobe seen on study CXR earlier today is less evident. Suspect reflect some atelectasis which has since re-expanded Mild prominence of interstitial pattern on this study.-this appearance may merely accentuated by optimal inspiration for current image. However could not exclude some subtle interstitial edema andmild vascular engorgement;. Dictated by: Jaspreet Angel MD 05/04/2020 15:02 Jaspreet Angel MD in [place] 05/04/2020 15:02
--- NOTE | 2020-05-04 14:58 | HMH.ACPN2 ---
Internal Medicine - PN: Subj *Date: 05/04/20 *Time: 14:58 Interval history: Patient was stable overnight, no significant issues relayed by staff. Dr. Chang's notes are reviewed and greatly appreciated. He has been of tremendous service. Patient has good antibacterial and antiviral coverage. Earlier in the day we placed an NG tube with some difficulty. Patient remains nasally intubated on the right. As Dr. Chang relays his vent settings are minimal. We anticipate weaning and extubating him on Thursday. Finding on CSF fluid were significant. I spent some time discussing patient's prognosis with his daughter who has been present a good deal of time. She understands the gravity of her dad's situation. Exam Vital signs and Labs for Last 24 Hours: Temp Pulse Resp BP Pulse Ox 98.8 F 76 16 118/61 97 05/04/20 08:00 05/04/20 14:00 05/04/20 14:00 05/04/20 14:00 05/04/20 14:30 Laboratory Results - last 24 hr 05/02/20 21:05: Lactate 1.4 05/03/20 11:25: CSF Glucose 33 L, CSF Total Protein 1550.0 H* 05/04/20 05:35: WBC 16.8 H D, RBC 3.58 L, Hgb 12.3 L, Hct 35.7 L, MCV 99.6 H, MCH 34.3 H, MCHC 34.4, RDW 14.4, Plt Count 282, MPV 8.6, Neut % (Auto) 87.0 H, Lymph % (Auto) 6.5 L, [place] % (Auto) 6.3, Eos % (Auto) 0.1, Baso % (Auto) 0.1, Neut # (Auto) 14.7 H, Lymph # (Auto) 1.1, [place] # (Auto) 1.1 H, Eos # (Auto) 0.0, Baso # (Auto) 0.0, Total Counted 100, Neutrophils % (Manual) 91 H, Lymphocytes % (Manual) 5 L, Monocytes % (Manual) 4, Platelet Estimate Normal, RBC Morphology Normal 05/04/20 05:35: Sodium 133 L, Potassium 3.7, Chloride 105, Carbon Dioxide 21 L, Anion Gap 10.7, BUN 19 D, Creatinine 0.70, Estimated Creat Clear 94, Estimated GFR 113, Est GFR ( Amer) 137, Glucose 138 H, Calcium 8.3 L, Total Bilirubin 1.0, AST 49, ALT 32, Alkaline Phosphatase 97, Total Protein 5.8 L, Albumin 2.9 L, Globulin 2.9, Albumin/Globulin Ratio 1.0 L 05/04/20 06:00: Specimen Source L radial, O2 % 30%, ABG pH 7.41, ABG pCO2 31.7 L, ABG pO2 81.4, ABG HCO3 19.7 L, ABG Total CO2 20.7 L, ABG O2 Saturation 96, ABG Base Excess -4.9 L, Efra Test Patient unable, Vent Rate 18, Tidal Volume 420, PEEP 5 05/04/20 09:49: Vancomycin Trough 12.8 H I & O for Last 24 hours: Intake & Output 05/01/20 05/02/20 05/03/20 05/04/20 23:59 23:59 23:59 23:59 Intake Total 2680 / 2680 2247 / 2368 1817.625 / 1817.625 Output Total 3450 / 3750 1115 / 1155 595 / 595 Balance -770 / -1070 1132 / 1213 1222.625 / 1222.625 Weight 199 lb 1.6 oz 201 lb 1 oz Microbiology Reports for the Last 24 Hours: Microbiology 05/03/20 11:25 Cerebral Spinal Fluid Gram Stain - Final 05/03/20 11:25 Cerebral Spinal Fluid CSF Culture - Preliminary NO GROWTH AFTER 24 HOURS 05/02/20 21:15 Blood Blood Culture - Preliminary Gram Positive Cocci 05/02/20 21:15 Blood Blood Culture - Preliminary Gram Positive Cocci 05/02/20 18:55 Sputum - Endotracheal Tube Aspirate Gram Stain - Final 05/02/20 18:55 Sputum - Endotracheal Tube Aspirate Sputum Culture - Preliminary - Constitutional obtunded - *Routine HEENT Exam Head: Present: normocephalic ENT: Present: mucous membranes moist - *Routine Neck Exam Present: supple, trachea midline. Absent: lymphadenopathy - *Routine Respiratory Exam Present: patient mechanically ventilated - *Routine Cardiovascular Exam Present: RRR - *Routine Abdominal Exam Present: soft, normoactive bowel sounds. Absent: tenderness - *Routine Extremities Exam Comments: skin lesion letf anterior calf - *Routine Skin Exam Present: lesions. Absent: jaundice - *Routine Neurological Exam Present: altered mental status. Absent: alert, oriented X3, clonus, fasciculations, tremors Assessment and Plan (1) STEMI (ST elevation myocardial infarction) Status: Ruled-out Category: Medical Code(s): I21.3 - ST elevation (STEMI) myocardial infar
--- NOTE | 2020-05-04 19:30 | PC.NURSE ---
Pt is mechanically ventilated. Settings documented per intervention. 14 fr NG placed in left nare per Dr Crane at 64 cm. Verified per radiology. Tube feedings initiated per order. Pt tolerating well at this time. Green is to bedside draining dark urine. Bilateral groin sites are clean, dry and intact. Large area of bruising noted to left groin site. +2 edema to erick feet and +1 to ble. Pulses non palpable but able to doppler. NSR on telemetry. Faint expiratory rhonchi noted to lungs. Family has been to visit and updated on plan of care. Report given to oncoming nurse.
[2020-05-05] VITALS (34 sets, daily range): BP systolic 111–173; BP diastolic 64–95; PULSE 68–100; RESP 1–26; TEMP 37.3–38; O2SAT 91–100; BMI 28.1
--- NOTE | 2020-05-05 06:02 | XR_ITS ---
PROCEDURE: XR CHEST PORTABLE CLINICAL HISTORY: f/u icu exam COMPARISON: CT CT ANGIO CHEST from 05/02/2020 CR XR CHEST PORTABLE from 05/04/2020 CR XR CHEST PORTABLE from 05/04/2020 CR XR CHEST PORTABLE from 05/04/2020 FINDINGS: The cardiomediastinal silhouette and pulmonary vascularity are within normal limits. There is calcification of the aortic arch. The lungs are clear without infiltrates, suspicious nodules, or pleural effusions. The endotracheal tube is difficult to visualize but appears to be well above the luis. No acute bony abnormalities. IMPRESSION: No acute findings. Dictated by: Dr. Francisco Benjamin MD 05/05/2020 10:12 Dr. Francisco Benjamin MD in [place] 05/05/2020 10:12
[2020-05-05 06:20] LABS: Basophils % 0.3 % (0.1-2.0); Eosinophils % 0.4 % (0.1-12.0); Hematocrit 37.1 % (42.0-52.0); Mean Corpuscular HGB Conc 32.3 g/dL (31.8-35.4); Mean Corpuscular Hemoglobin 33.6 pg (27.0-31.2); Mean Platelet Volume 8.3 fl (7.4-10.4); Monocytes # 0.7 K/mm3 (0.1-1.0); Monocytes % 7.5 % (1.7-9.3); Neutrophils % 81.8 % (37.0-80.0); Platelet Count 256 K/mm3 (142-424); Red Blood Count 3.57 M/mm3 (4.60-6.20); Red Cell Distribution Width 14.3 % (11.5-17.5); White Blood Count 9.7 K/mm3 (4.8-10.8)
[2020-05-05 06:55] LABS: Alanine Aminotransferase 38 U/L (12-78); Albumin Level 2.9 g/dl (3.5-5.0); Alkaline Phosphatase 151 U/L (38-126); Anion Gap 11.8 mEq/L (5-15); Aspartate Amino Transferase 44 U/L (17-59); Bilirubin,Total 1.4 mg/dl (0.2-1.3); Blood Urea Nitrogen 19 mg/dl (9-20); Calcium 8.5 mg/dl (8.4-10.2); Carbon Dioxide 23 mmol/L (22.0-30.0); Chloride 104 mmol/L (98-107); Creatinine Clearance Estimated 97 mL/min (50-200); Estimated Glomerular Filt Rate 97 ml/min (>60); GFR (African American) 117 ML/MIN (>60); Globulin 2.9 g/dL (1.3-3.2); Glucose 176 mg/dl (74-100); Potassium 3.8 mmoL/L (3.5-5.1); Sodium 135 mmol/L (136-145); Total Protein,Serum 5.8 g/dl (6.3-8.2)
[2020-05-05 07:49] LABS: ABG Base Excess -4.1 mmol/L (-2.4-2.3); ABG HCO3 19.9 mmhg (22.0-26.0); ABG Oxygen Saturation 97 % (90-100); ABG PCO2 29.1 mmhg (35.0-45.0); ABG PH 7.45 mmol/L (7.35-7.45); ABG PO2 86.9 mmhg (80-100); ABG TCO2 20.8 mmhg (23-27)
[2020-05-05 07:52] LABS: Allen's Test Patient Unable; Oxygen 30% %; PEEP 5; Pressure Support 10; Source Left Radial; Tidal Volume 420; Vent Rate 16
--- NOTE | 2020-05-05 08:00 | PC.NURSE ---
gastric residual 0mL. Tubefeed rate increased to 70mL from 60mL. Bilateral DP and PT pulses dopplered and are present. All areas marked with an X.
--- NOTE | 2020-05-05 08:35 | HMH.ACPN2 ---
Internal Medicine - PN: Subj *Date: 05/05/20 *Time: 11:47 Interval history: Internal medicine consult note follow-up: Patient has remained clinically stable overnight. Blood pressure and pulse have been stable. Patient remains sedated and intubated. Minimal settings in regards to pressure on ventilator. Patient is overbreathing the vent this morning. Blood gas with some mild hypercarbia. Arterial pH upper limit of normal. Oxygen saturations adequate. Tolerating propofol and fentanyl for sedation. No pressure alarms. Labs reviewed, culture reviewed, discussed case with family at bedside. Exam Vital signs and Labs for Last 24 Hours: Temp Pulse Resp BP Pulse Ox 99.8 F H 74 16 128/70 96 05/05/20 08:00 05/05/20 08:00 05/05/20 08:00 05/05/20 08:00 05/05/20 08:00 Laboratory Results - last 24 hr 05/04/20 09:49: Vancomycin Trough 12.8 H 05/05/20 06:00: WBC 9.7 D, RBC 3.57 L, Hgb 12.0 L, Hct 37.1 L, MCV 104.0 H, MCH 33.6 H, MCHC 32.3, RDW 14.3, Plt Count 256, MPV 8.3, Neut % (Auto) 81.8 H, Lymph % (Auto) 10.0, [place] % (Auto) 7.5, Eos % (Auto) 0.4, Baso % (Auto) 0.3, Neut # (Auto) 8.0 H, Lymph # (Auto) 1.0, [place] # (Auto) 0.7, Eos # (Auto) 0.0, Baso # (Auto) 0.0 05/05/20 06:00: Sodium 135 L, Potassium 3.8, Chloride 104, Carbon Dioxide 23, Anion Gap 11.8, BUN 19, Creatinine 0.80, Estimated Creat Clear 97, Estimated GFR 97, Est GFR ( Amer) 117, Glucose 176 H, Calcium 8.5, Total Bilirubin 1.4 H, AST 44, ALT 38, Alkaline Phosphatase 151 H, Total Protein 5.8 L, Albumin 2.9 L, Globulin 2.9, Albumin/Globulin Ratio 1.0 L 05/05/20 06:00: Specimen Source Left radial, O2 % 30%, ABG pH 7.45, ABG pCO2 29.1 L, ABG pO2 86.9, ABG HCO3 19.9 L, ABG Total CO2 20.8 L, ABG O2 Saturation 97, ABG Base Excess -4.1 L, Efra Test Patient unable, Vent Rate 16, Tidal Volume 420, PEEP 5 I & O for Last 24 hours: Intake & Output 05/02/20 05/03/20 05/04/20 05/05/20 23:59 23:59 23:59 23:59 Intake Total 2680 / 2680 2247 / 2368 2922.625 / 2973.625 528 / 528 Output Total 3450 / 3750 1115 / 1155 965 / 1000 520 / 520 Balance -770 / -1070 1132 / 1213 195.625 / 625 Weight 90.31 kg 91.2 kg 94.347 kg Microbiology Reports for the Last 24 Hours: Microbiology 05/02/20 18:55 Sputum - Endotracheal Tube Aspirate Gram Stain - Final 05/02/20 18:55 Sputum - Endotracheal Tube Aspirate Sputum Culture - Preliminary 05/02/20 21:15 Blood Blood Culture - Preliminary Strep agalactiae - (group b) 05/02/20 21:15 Blood Blood Culture - Preliminary Strep agalactiae - (group b) 05/03/20 11:25 Cerebral Spinal Fluid Gram Stain - Final 05/03/20 11:25 Cerebral Spinal Fluid CSF Culture - Preliminary NO GROWTH AFTER 24 HOURS Narrative: Intubated and sedated. Opens eyes to physical stimulation but no agitation lungs with good air movement, mechanical breath sounds, no crackles or wheeze Heart rate regular Abdomen soft, normal bowel sounds Peripheral pulses palpable bilaterally lower extremities Brawny skin changes No focal neurologic findings, spontaneous eye opening, cough and gag reflex intact. Assessment and Plan (1) STEMI (ST elevation myocardial infarction) Status: Ruled-out Category: Medical Code(s): I21.3 - ST elevation (STEMI) myocardial infarction of unspecified site (2) Cirrhosis of liver Status: Acute Category: Medical Code(s): K74.60 - Unspecified cirrhosis of liver (3) Alcohol abuse Status: Acute Category: Social Hx Code(s): F10.10 - Alcohol abuse, uncomplicated (4) Elevated liver enzymes Status: Acute Category: Medical Code(s): R74.8 - Abnormal levels of other serum enzymes (5) Hypertension Status: Acute Qualifiers: Hypertension type: essential hypertension Qualified Code(s): I10 - Essential (primary) hypertension Category: Medical Code(s): I10 - Essential (primary) hypertension
--- NOTE | 2020-05-05 08:51 | PC.NURSE ---
Dr. Prince @ [facility] and decreased rate to 14 on vent.
--- NOTE | 2020-05-05 11:57 | HMH.ACPN ---
Internal Medicine - PN: Subj *Date: 05/05/20 *Time: 11:57 Exam Vital signs and Labs for Last 24 Hours: Temp Pulse Resp BP Pulse Ox 99.8 F H 84 22 122/68 98 05/05/20 08:00 05/05/20 11:00 05/05/20 11:00 05/05/20 11:15 05/05/20 11:00 Laboratory Results - last 24 hr 05/05/20 06:00: WBC 9.7 D, RBC 3.57 L, Hgb 12.0 L, Hct 37.1 L, MCV 104.0 H, MCH 33.6 H, MCHC 32.3, RDW 14.3, Plt Count 256, MPV 8.3, Neut % (Auto) 81.8 H, Lymph % (Auto) 10.0, [place] % (Auto) 7.5, Eos % (Auto) 0.4, Baso % (Auto) 0.3, Neut # (Auto) 8.0 H, Lymph # (Auto) 1.0, [place] # (Auto) 0.7, Eos # (Auto) 0.0, Baso # (Auto) 0.0 05/05/20 06:00: Sodium 135 L, Potassium 3.8, Chloride 104, Carbon Dioxide 23, Anion Gap 11.8, BUN 19, Creatinine 0.80, Estimated Creat Clear 97, Estimated GFR 97, Est GFR ( Amer) 117, Glucose 176 H, Calcium 8.5, Total Bilirubin 1.4 H, AST 44, ALT 38, Alkaline Phosphatase 151 H, Total Protein 5.8 L, Albumin 2.9 L, Globulin 2.9, Albumin/Globulin Ratio 1.0 L 05/05/20 06:00: Specimen Source Left radial, O2 % 30%, ABG pH 7.45, ABG pCO2 29.1 L, ABG pO2 86.9, ABG HCO3 19.9 L, ABG Total CO2 20.8 L, ABG O2 Saturation 97, ABG Base Excess -4.1 L, Efra Test Patient unable, Vent Rate 16, Tidal Volume 420, PEEP 5 I & O for Last 24 hours: Intake & Output 05/02/20 05/03/20 05/04/20 05/05/20 23:59 23:59 23:59 23:59 Intake Total 2680 / 2680 2247 / 2368 2922.625 / 2973.625 528 / 528 Output Total 3450 / 3750 1115 / 1155 965 / 1000 600 / 600 Balance -770 / -1070 1132 / 1213 / 625 -72 / -72 Weight 90.31 kg 91.2 kg 94.347 kg Microbiology Reports for the Last 24 Hours: Microbiology 05/03/20 11:25 Cerebral Spinal Fluid Gram Stain - Final 05/03/20 11:25 Cerebral Spinal Fluid CSF Culture - Preliminary NO GROWTH AFTER 48 HOURS 05/02/20 18:55 Sputum - Endotracheal Tube Aspirate Gram Stain - Final 05/02/20 18:55 Sputum - Endotracheal Tube Aspirate Sputum Culture - Preliminary 05/02/20 21:15 Blood Blood Culture - Preliminary Strep agalactiae - (group b) 05/02/20 21:15 Blood Blood Culture - Preliminary Strep agalactiae - (group b) Assessment and Plan (1) STEMI (ST elevation myocardial infarction) Status: Ruled-out Category: Medical Code(s): I21.3 - ST elevation (STEMI) myocardial infarction of unspecified site (2) Cirrhosis of liver Status: Acute Category: Medical Code(s): K74.60 - Unspecified cirrhosis of liver (3) Alcohol abuse Status: Acute Category: Social Hx Code(s): F10.10 - Alcohol abuse, uncomplicated (4) Elevated liver enzymes Status: Acute Category: Medical Code(s): R74.8 - Abnormal levels of other serum enzymes (5) Hypertension Status: Acute Qualifiers: Hypertension type: essential hypertension Qualified Code(s): I10 - Essential (primary) hypertension Category: Medical Code(s): I10 - Essential (primary) hypertension (6) Respiratory arrest Status: Acute Category: Medical Code(s): R09.2 - Respiratory arrest (7) Unresponsive state Status: Acute Category: Medical Code(s): R41.89 - Other symptoms and signs involving cognitive functions and awareness (8) Meningitis Status: Acute Category: Medical Code(s): G03.9 - Meningitis, unspecified The patient's infection will respond to the chosen ABx?: Yes ([employer] ) Is the patient receiving the right drug, dose, and route?: Yes Could a more targeted ABx be ordered?: No (DISCUSSED WITH PCP)
--- NOTE | 2020-05-05 12:00 | PC.NURSE ---
gastric residual 40mL. Tubefeed rate increased to 80mL/hr.
--- NOTE | 2020-05-05 12:47 | PC.NURSE ---
pt is agitated and restless. Propofol gtt increased to 20mcg/kg/min.
--- NOTE | 2020-05-05 13:49 | HMH.ACPN2 ---
Internal Medicine - PN: Subj *Date: 05/05/20 *Time: 13:52 Interval history: No significant changes overnight. Patient remains ventilated and sedated. Caloric intake via NG tube without technical issues. Blood cultures are noted, SF cultures are pending. Chiqui on broad-spectrum antibiotic coverage. The was present during my visit today, she was updated on all information. Exam Vital signs and Labs for Last 24 Hours: Temp Pulse Resp BP Pulse Ox 99.1 F 83 26 H 133/73 100 05/05/20 12:00 05/05/20 13:00 05/05/20 13:00 05/05/20 13:00 05/05/20 13:00 Laboratory Results - last 24 hr 05/05/20 06:00: WBC 9.7 D, RBC 3.57 L, Hgb 12.0 L, Hct 37.1 L, MCV 104.0 H, MCH 33.6 H, MCHC 32.3, RDW 14.3, Plt Count 256, MPV 8.3, Neut % (Auto) 81.8 H, Lymph % (Auto) 10.0, [place] % (Auto) 7.5, Eos % (Auto) 0.4, Baso % (Auto) 0.3, Neut # (Auto) 8.0 H, Lymph # (Auto) 1.0, [place] # (Auto) 0.7, Eos # (Auto) 0.0, Baso # (Auto) 0.0 05/05/20 06:00: Sodium 135 L, Potassium 3.8, Chloride 104, Carbon Dioxide 23, Anion Gap 11.8, BUN 19, Creatinine 0.80, Estimated Creat Clear 97, Estimated GFR 97, Est GFR ( Amer) 117, Glucose 176 H, Calcium 8.5, Total Bilirubin 1.4 H, AST 44, ALT 38, Alkaline Phosphatase 151 H, Total Protein 5.8 L, Albumin 2.9 L, Globulin 2.9, Albumin/Globulin Ratio 1.0 L 05/05/20 06:00: Specimen Source Left radial, O2 % 30%, ABG pH 7.45, ABG pCO2 29.1 L, ABG pO2 86.9, ABG HCO3 19.9 L, ABG Total CO2 20.8 L, ABG O2 Saturation 97, ABG Base Excess -4.1 L, Efra Test Patient unable, Vent Rate 16, Tidal Volume 420, PEEP 5 I & O for Last 24 hours: Intake & Output 05/02/20 05/03/20 05/04/20 05/05/20 23:59 23:59 23:59 23:59 Intake Total 2680 / 2680 2247 / 2368 2922.625 / 2973.625 599.792 / 599.792 Output Total 3450 / 3750 1115 / 1155 965 / 1000 725 / 725 Balance -770 / -1070 1132 / 1213 1957.625 / 1973.625 -125.208 / -125.208 Weight 199 lb 1.6 oz 201 lb 1 oz 208 lb Microbiology Reports for the Last 24 Hours: Microbiology 05/03/20 11:25 Cerebral Spinal Fluid Gram Stain - Final 05/03/20 11:25 Cerebral Spinal Fluid CSF Culture - Preliminary NO GROWTH AFTER 48 HOURS 05/02/20 18:55 Sputum - Endotracheal Tube Aspirate Gram Stain - Final 05/02/20 18:55 Sputum - Endotracheal Tube Aspirate Sputum Culture - Preliminary 05/02/20 21:15 Blood Blood Culture - Preliminary Strep agalactiae - (group b) 05/02/20 21:15 Blood Blood Culture - Preliminary Strep agalactiae - (group b) - Constitutional obtunded - *Routine HEENT Exam Head: Present: normocephalic Eye: Present: EOMI, PERRL ENT: Present: mucous membranes moist - *Routine Neck Exam Present: supple. Absent: lymphadenopathy - *Routine Respiratory Exam Present: patient mechanically ventilated - *Routine Cardiovascular Exam Present: RRR - *Routine Abdominal Exam Present: soft, normoactive bowel sounds. Absent: tenderness - *Routine Extremities Exam Absent: cyanosis, clubbing, edema - *Routine Skin Exam Absent: mottling, jaundice - *Routine Neurological Exam Absent: alert, oriented X3, normal speech Assessment and Plan (1) STEMI (ST elevation myocardial infarction) Status: Ruled-out Category: Medical Code(s): I21.3 - ST elevation (STEMI) myocardial infarction of unspecified site (2) Cirrhosis of liver Status: Acute Category: Medical Code(s): K74.60 - Unspecified cirrhosis of liver (3) Alcohol abuse Status: Acute Category: Social Hx Code(s): F10.10 - Alcohol abuse, uncomplicated (4) Elevated liver enzymes Status: Acute Category: Medical Code(s): R74.8 - Abnormal levels of other serum enzymes (5) Hypertension Status: Acute Qualifiers: Hypertension type: essential hypertension Qualified Code(s): I10 - Essential (primary) hypertension Category: Medical Code(s): I10 - Essential (primary) hypertension (6
--- NOTE | 2020-05-05 16:00 | PC.NURSE ---
gastric residual 120mL. Tubefeed continues at 80mL/hr.
[2020-05-05 16:56] LABS: Miscellaneous Test Negative
--- NOTE | 2020-05-05 21:21 | PC.NURSE ---
He continues to be intubated and sedated. Low grade temp noted. Vent settings are as follows: SIMV mode, TV 420, R 14, PEEP 5, PS 10, 30% FiO2. He continues to receive tube feedings per NG in left nare. Gag reflex is present. Requires frequent suctioning via nasal [place] with large amounts of thick, white secretions. BUE with trace edema and are elevated. Weeping of LLE has decreased in amount and there is no edema in comparison with last night.
[2020-05-06] VITALS (34 sets, daily range): BP systolic 105–165; BP diastolic 56–87; PULSE 66–92; RESP 10–20; TEMP 36.7–37.7; O2SAT 95–99; BMI 28.8
--- NOTE | 2020-05-06 05:00 | XR_ITS ---
PROCEDURE: XR CHEST PORTABLE Referring Doctor: Luigi Crane Patient Age:64Y CLINICAL HISTORY: Pt intubated. COMPARISON: CT CT ANGIO CHEST from 05/02/2020 CR XR CHEST PORTABLE from 05/04/2020 CR XR CHEST PORTABLE from 05/04/2020 CR XR CHEST PORTABLE from 05/05/2020 FINDINGS: AP portable chest supine but patient is intubated. ETT tip is at the level of the head of the clavicles just over 5 cm above the luis.. The NG tube is in place passing well into the stomach tip is directed towards the lateral aspect of the proximal stomach. There is some mild linear density towards the right base likely reflecting linear atelectasis but mild interstitial prominence and coarsening bilaterally reflecting chronic changes. But vascularity is upper normal in prominence and as on May 02 CT chest question mild interstitial prominence which could reflect mild interstitial edema. Equivocal but no pleural effusions in the heart normal size. Calcified aortic knob. Chest wall unremarkable IMPRESSION: ET tube in place-with tip at level of clavicles NG tube-Satisfactory position No focal pneumonia. No pleural effusions Mild linear atelectasis right right lung base Mild chronic changes. Mild prominence of vascular and interstitial markings conceivably could reflect some minor vascular engorgement/congestion Dictated by: Jaspreet Angel MD 05/06/2020 08:40 Jaspreet Angel MD in [facility] 05/06/2020 08:40
[2020-05-06 06:31] LABS: Basophils % 0.3 % (0.1-2.0); Eosinophils # 0.2 K/mm3 (0.0-0.4); Hematocrit 38.7 % (42.0-52.0); Lymphocytes # 1.2 K/mm3 (0.7-4.5); Lymphocytes % 13.2 % (10-50); Mean Corpuscular HGB Conc 33.5 g/dL (31.8-35.4); Mean Corpuscular Hemoglobin 33.6 pg (27.0-31.2); Mean Corpuscular Volume 100.3 fl (80-94); Mean Platelet Volume 9.4 fl (7.4-10.4); Monocytes # 0.8 K/mm3 (0.1-1.0); Monocytes % 8.4 % (1.7-9.3); Neutrophils # 6.9 K/mm3 (1.8-7.8); Neutrophils % 76.2 % (37.0-80.0); Platelet Count 226 K/mm3 (142-424); Red Blood Count 3.86 M/mm3 (4.60-6.20); Red Cell Distribution Width 14.3 % (11.5-17.5)
[2020-05-06 06:37] LABS: Chloride 105 mmol/L (98-107); Potassium 3.7 mmoL/L (3.5-5.1); Sodium 136 mmol/L (136-145)
[2020-05-06 06:40] LABS: Alanine Aminotransferase 43 U/L (12-78); Albumin/Globulin Ratio 0.9 (1.1-1.8); Alkaline Phosphatase 151 U/L (38-126); Anion Gap 7.7 mEq/L (5-15); Aspartate Amino Transferase 45 U/L (17-59); Bilirubin,Total 1.4 mg/dl (0.2-1.3); Blood Urea Nitrogen 16 mg/dl (9-20); Calcium 8.4 mg/dl (8.4-10.2); Carbon Dioxide 27 mmol/L (22.0-30.0); Creatinine Clearance Estimated 99 mL/min (50-200); Estimated Glomerular Filt Rate 113 ml/min (>60); GFR (African American) 137 ML/MIN (>60); Globulin 3.2 g/dL (1.3-3.2); Glucose 148 mg/dl (74-100); Total Protein,Serum 6.2 g/dl (6.3-8.2)
[2020-05-06 06:48] LABS: ABG Base Excess -0.3 mmol/L (-2.4-2.3); ABG HCO3 23.5 mmhg (22.0-26.0); ABG Oxygen Saturation 97 % (90-100); ABG PCO2 33.2 mmhg (35.0-45.0); ABG PH 7.47 mmol/L (7.35-7.45); ABG PO2 85.6 mmhg (80-100); ABG TCO2 24.5 mmhg (23-27); Oxygen 30 %; Tidal Volume 420; Vent Rate 14
[2020-05-06 06:49] LABS: Allen's Test Patient Unable; PEEP 5; Pressure Support 10; Source Right Radial
--- NOTE | 2020-05-06 08:00 | PC.NURSE ---
gastric residual 0mL. Tubefeed rate at goal of 89mL/hr.
--- NOTE | 2020-05-06 09:10 | PC.NURSE ---
Dr. Prince @ [facility]. Pt has been on SBT for the last 1 hour. Is pulling good TVs. Sats 96% on 30% fiO2. He ordered to keep pt on SBT (30%, PS, 09/08). Pt is to stay on this setting as long as he is pulling TVs of 400-450. Plan is to switch pt back to SIMV setting tonight and let him rest with hopes of extubating tomorrow. Relayed info to RT (Ibeth). Obtain ABG tonight.
--- NOTE | 2020-05-06 09:52 | HMH.ACPN2 ---
Internal Medicine - PN: Subj *Date: 05/06/20 *Time: 09:52 Interval history: Internal medicine consult note follow-up: Patient has remained clinically stable overnight. Blood pressure and pulse have been stable. Patient remains sedated and intubated. Ventilator switched to pressure support this morning. Tolerating well with initiation of breathing independently. Maintaining good saturations and pulling volumes of 450 to 550 cc each. Currently on pressure support of 8, PEEP of 5, FiO2 30%. Blood gas improved this morning, still mildly alkalotic with normalizing PCO2. Tolerating propofol and fentanyl for sedation. No pressure alarms. Labs reviewed, culture reviewed, discussed case with family at bedside. Exam Vital signs and Labs for Last 24 Hours: Temp Pulse Resp BP Pulse Ox 98.7 F 66 12 113/62 96 05/06/20 08:00 05/06/20 09:00 05/06/20 09:00 05/06/20 09:00 05/06/20 09:00 Laboratory Results - last 24 hr 05/03/20 11:25: Miscellaneous Test Negative 05/06/20 06:00: Specimen Source Right radial, O2 % 30, ABG pH 7.47 H, ABG pCO2 33.2 L, ABG pO2 85.6, ABG HCO3 23.5, ABG Total CO2 24.5, ABG O2 Saturation 97, ABG Base Excess -0.3, Efra Test Patient unable, Vent Rate 14, Tidal Volume 420, PEEP 5 05/06/20 06:20: WBC 9.0, RBC 3.86 L, Hgb 13.0 L, Hct 38.7 L, MCV 100.3 H, MCH 33.6 H, MCHC 33.5, RDW 14.3, Plt Count 226, MPV 9.4, Neut % (Auto) 76.2, Lymph % (Auto) 13.2, [place] % (Auto) 8.4, Eos % (Auto) 2.0, Baso % (Auto) 0.3, Neut # (Auto) 6.9, Lymph # (Auto) 1.2, [place] # (Auto) 0.8, Eos # (Auto) 0.2, Baso # (Auto) 0.0 05/06/20 06:20: Sodium 136, Potassium 3.7, Chloride 105, Carbon Dioxide 27, Anion Gap 7.7, BUN 16, Creatinine 0.70, Estimated Creat Clear 99, Estimated GFR 113, Est GFR ( Amer) 137, Glucose 148 H, Calcium 8.4, Total Bilirubin 1.4 H, AST 45, ALT 43, Alkaline Phosphatase 151 H, Total Protein 6.2 L, Albumin 3.0 L, Globulin 3.2, Albumin/Globulin Ratio 0.9 L I & O for Last 24 hours: Intake & Output 05/03/20 05/04/20 05/05/20 05/06/20 23:59 23:59 23:59 23:59 Intake Total 2247 / 2368 2922.625 / 2973.625 3410.792 / 3410.792 660 / 660 Output Total 1115 / 1155 965 / 1000 1360 / 1360 450 / 450 Balance 1132 / 1213 195.625 / 2880.025 1610.792 / 2050.792 210 / 210 Weight 91.2 kg 94.347 kg 96.388 kg Microbiology Reports for the Last 24 Hours: Microbiology 05/02/20 18:55 Sputum - Endotracheal Tube Aspirate Gram Stain - Final 05/02/20 18:55 Sputum - Endotracheal Tube Aspirate Sputum Culture - Preliminary Gram Positive Bacilli 05/03/20 11:25 Cerebral Spinal Fluid Gram Stain - Final 05/03/20 11:25 Cerebral Spinal Fluid CSF Culture - Preliminary NO GROWTH AFTER 48 HOURS 05/02/20 21:15 Blood Blood Culture - Preliminary Strep agalactiae - (group b) 05/02/20 21:15 Blood Blood Culture - Preliminary Strep agalactiae - (group b) Narrative: Intubated and sedated. Opens eyes to physical stimulation but no agitation lungs with good air movement, mechanical breath sounds, no crackles or wheeze Heart rate regular Abdomen soft, normal bowel sounds Peripheral pulses palpable bilaterally lower extremities Brawny skin changes No focal neurologic findings, spontaneous eye opening, cough and gag reflex intact. Assessment and Plan (1) STEMI (ST elevation myocardial infarction) Status: Ruled-out Category: Medical Code(s): I21.3 - ST elevation (STEMI) myocardial infarction of unspecified site (2) Cirrhosis of liver Status: Acute Category: Medical Code(s): K74.60 - Unspecified cirrhosis of liver (3) Alcohol abuse Status: Acute Category: Social Hx Code(s): F10.10 - Alcohol abuse, uncomplicated (4) Elevated liver enzymes Status: Acute Category: Medical Code(s): R74.8 - Abnormal levels of other serum enzymes (5) Hypertension Status: Acute Qualifie
[2020-05-06 10:12] LABS: Specimen Source Urine; Streptococcus pneumoniae Ag Negative
[2020-05-06 10:13] LABS: Body Fluid Culture, Sterile Not indicated.; Organism ID Not indicated.
--- NOTE | 2020-05-06 14:34 | HMH.ACPN2 ---
Internal Medicine - PN: Subj *Date: 05/06/20 *Time: 14:34 Interval history: Nursing staff relays an uneventful night. Patient continues to be sedated on a propofol drip. He remains intubated and mechanically ventilated, vent settings and ABGs are reviewed. We have tentative plans to extubate him tomorrow. His labs are reviewed, count is coming down very nicely. Cultures are positive, CSF cultures are pending. He is on broad-spectrum antibiotic coverage. EEG is pending. Cath report is reviewed. Patient has diminished pulses bilaterally, DP and PT. He likely has some element of peripheral vascular disease. I spent some time discussing his medical status with family members present. Exam Vital signs and Labs for Last 24 Hours: Temp Pulse Resp BP Pulse Ox 99.0 F 84 15 140/73 97 05/06/20 12:00 05/06/20 14:00 05/06/20 14:00 05/06/20 14:00 05/06/20 14:00 Laboratory Results - last 24 hr 05/03/20 11:25: Fluid Culture Not indicated., S. pneumoniae Antigen Negative, S. pneumoniae Ag Source Urine, Organism ID Not indicated. 05/03/20 11:25: Miscellaneous Test Negative 05/06/20 06:00: Specimen Source Right radial, O2 % 30, ABG pH 7.47 H, ABG pCO2 33.2 L, ABG pO2 85.6, ABG HCO3 23.5, ABG Total CO2 24.5, ABG O2 Saturation 97, ABG Base Excess -0.3, Efra Test Patient unable, Vent Rate 14, Tidal Volume 420, PEEP 5 05/06/20 06:20: WBC 9.0, RBC 3.86 L, Hgb 13.0 L, Hct 38.7 L, MCV 100.3 H, MCH 33.6 H, MCHC 33.5, RDW 14.3, Plt Count 226, MPV 9.4, Neut % (Auto) 76.2, Lymph % (Auto) 13.2, [place] % (Auto) 8.4, Eos % (Auto) 2.0, Baso % (Auto) 0.3, Neut # (Auto) 6.9, Lymph # (Auto) 1.2, [place] # (Auto) 0.8, Eos # (Auto) 0.2, Baso # (Auto) 0.0 05/06/20 06:20: Sodium 136, Potassium 3.7, Chloride 105, Carbon Dioxide 27, Anion Gap 7.7, BUN 16, Creatinine 0.70, Estimated Creat Clear 99, Estimated GFR 113, Est GFR ( Amer) 137, Glucose 148 H, Calcium 8.4, Total Bilirubin 1.4 H, AST 45, ALT 43, Alkaline Phosphatase 151 H, Total Protein 6.2 L, Albumin 3.0 L, Globulin 3.2, Albumin/Globulin Ratio 0.9 L I & O for Last 24 hours: Intake & Output 05/03/20 05/04/20 05/05/20 05/06/20 23:59 23:59 23:59 23:59 Intake Total 2247 / 2368 2922.625 / 2973.625 3410.792 / 3410.792 660 / 660 Output Total 1115 / 1155 965 / 1000 1360 / 1360 681 / 681 Balance 1132 / 1213 1957.625 / 5678.465 5282.792 / 2050.792 - Weight 201 lb 1 oz 208 lb 212 lb 8 oz Microbiology Reports for the Last 24 Hours: Microbiology 05/03/20 11:25 Cerebral Spinal Fluid Gram Stain - Final 05/03/20 11:25 Cerebral Spinal Fluid CSF Culture - Preliminary NO GROWTH AFTER 72 HOURS 05/02/20 18:55 Sputum - Endotracheal Tube Aspirate Gram Stain - Final 05/02/20 18:55 Sputum - Endotracheal Tube Aspirate Sputum Culture - Preliminary Gram Positive Bacilli - Constitutional no acute distress, obtunded - *Routine HEENT Exam Head: Present: normocephalic Eye: Present: EOMI, PERRL ENT: Present: mucous membranes moist - *Routine Neck Exam Present: supple. Absent: lymphadenopathy - *Routine Respiratory Exam Present: patient mechanically ventilated - *Routine Cardiovascular Exam Present: RRR - *Routine Abdominal Exam Present: soft, normoactive bowel sounds. Absent: tenderness - *Routine Extremities Exam Absent: cyanosis, clubbing, edema - *Routine Skin Exam Present: warm. Absent: rash - *Routine Neurological Exam Present: altered mental status. Absent: alert, oriented X3, moving all extremities, normal speech, tremors Assessment and Plan (1) STEMI (ST elevation myocardial infarction) Status: Ruled-out Category: Medical Code(s): I21.3 - ST elevation (STEMI) myocardial infarction of unspecified site (2) Cirrhosis of liver Status: Acute Category: Medical Code(s): K74.60 - Unspecified cirrhosis of liver (3) Alcohol abuse Status: Acute Category: Social Hx Code(s): F10.10
--- NOTE | 2020-05-06 18:33 | PC.NURSE ---
RT (Will) obtained an ABG and then switched vent to SIMV mode to let him rest over night.
[2020-05-06 18:40] LABS: ABG Base Excess 0.2 mmol/L (-2.4-2.3); ABG HCO3 23.8 mmhg (22.0-26.0); ABG Oxygen Saturation 97 % (90-100); ABG PCO2 33.4 mmhg (35.0-45.0); ABG PH 7.47 mmol/L (7.35-7.45); ABG PO2 83.5 mmhg (80-100); ABG TCO2 24.8 mmhg (23-27); Allen's Test Y; Oxygen 30 %; PEEP 5; Pressure Support 8; Source R/R
[2020-05-07] VITALS (34 sets, daily range): BP systolic 102–156; BP diastolic 60–81; PULSE 73–116; RESP 15–23; TEMP 37.3–37.8; O2SAT 91–100; BMI 29.4
--- NOTE | 2020-05-07 05:00 | XR_ITS ---
PROCEDURE: XR CHEST PORTABLE CLINICAL HISTORY: Pt intubated. Evaluate endotracheal tube, respiratory failure COMPARISON: CT CT ANGIO CHEST from 05/02/2020 CR XR CHEST PORTABLE from 05/04/2020 CR XR CHEST PORTABLE from 05/05/2020 CR XR CHEST PORTABLE from 05/06/2020 FINDINGS: 5:26 a.m. Unremarkable heart size. Endotracheal tube tip is high and is above the level of the clavicles at the T2 level. NG tube tip is in the region the body of stomach. There is some mild atelectatic changes in the lung bases. IMPRESSION: High position of endotracheal tube. Suggest advancing endotracheal tube 3-4 cm and repeat exam. Dictated by: Efra Guido MD 05/07/2020 06:06 Efra Guido MD in [facility] 05/07/2020 06:06
[2020-05-07 05:48] LABS: Basophils % 0.5 % (0.1-2.0); Eosinophils # 0.4 K/mm3 (0.0-0.4); Eosinophils % 4.1 % (0.1-12.0); Hematocrit 36.1 % (42.0-52.0); Hemoglobin 11.6 g/dL (14.1-18.0); Lymphocytes % 11.2 % (10-50); Mean Corpuscular HGB Conc 32.3 g/dL (31.8-35.4); Mean Corpuscular Hemoglobin 33.1 pg (27.0-31.2); Mean Corpuscular Volume 102.5 fl (80-94); Mean Platelet Volume 8.9 fl (7.4-10.4); Monocytes # 0.7 K/mm3 (0.1-1.0); Monocytes % 7.9 % (1.7-9.3); Neutrophils # 7.1 K/mm3 (1.8-7.8); Neutrophils % 76.4 % (37.0-80.0); Platelet Count 232 K/mm3 (142-424); Red Blood Count 3.52 M/mm3 (4.60-6.20); Red Cell Distribution Width 14.4 % (11.5-17.5); White Blood Count 9.2 K/mm3 (4.8-10.8)
[2020-05-07 06:00] LABS: Blood Urea Nitrogen 17 mg/dl (9-20); Calcium 8.2 mg/dl (8.4-10.2); Carbon Dioxide 25 mmol/L (22.0-30.0); Chloride 105 mmol/L (98-107); Creatinine Clearance Estimated 101 mL/min (50-200); Estimated Glomerular Filt Rate 113 ml/min (>60); GFR (African American) 137 ML/MIN (>60); Glucose 171 mg/dl (74-100); Sodium 136 mmol/L (136-145)
--- NOTE | 2020-05-07 06:01 | PC.NURSE ---
he continues to be intubated and sedation. Requires frequent suctioning at times. Gag reflex present. F/c patent and draining yellow, clear urine. Continues with osmolite tube feedings in left nare. Intubated in right nare. Vent settings are as follows: SIMV mode, TV 420, PEEP 5, R 14, FiO2 30%. Plans to extubate today.
[2020-05-07 06:25] LABS: ABG Base Excess -0.7 mmol/L (-2.4-2.3); ABG HCO3 24.3 mmhg (22.0-26.0); ABG Oxygen Saturation 95 % (90-100); ABG PCO2 40.9 mmhg (35.0-45.0); ABG PH 7.39 mmol/L (7.35-7.45); ABG PO2 70.7 mmhg (80-100); ABG TCO2 25.5 mmhg (23-27)
[2020-05-07 06:26] LABS: Oxygen 30 %; PEEP 5; Pressure Support 10; Tidal Volume 420; Vent Rate 14
[2020-05-07 06:27] LABS: Allen's Test Patient Unable; Source Right Radial
--- NOTE | 2020-05-07 07:30 | XR_ITS ---
PROCEDURE: XR CHEST PORTABLE CLINICAL HISTORY: Pt intubated. Tube advancement. COMPARISON: CT CT ANGIO CHEST from 05/02/2020 CR XR CHEST PORTABLE from 05/05/2020 CR XR CHEST PORTABLE from 05/06/2020 CR XR CHEST PORTABLE from 05/07/2020 FINDINGS: 7:53 a.m.. Endotracheal tube tip remains high at the C7-T1 level. Nasogastric tube tip is in the region the body of stomach. No lobar consolidation or collapse. IMPRESSION: Persistent high position of endotracheal tube. These results were phoned to the ICU nurse/Yamil at 05/07/2020 9:38 a.m. Dictated by: Efra Guido MD 05/07/2020 09:38 Efra Guido MD in [facility] 05/07/2020 09:38
--- NOTE | 2020-05-07 08:35 | HMH.ACPN2 ---
Internal Medicine - PN: Subj *Date: 05/07/20 *Time: 08:35 Interval history: Internal medicine consult follow-up note: Patient did very well overnight. Continues to be on minimal vent settings. Remains sedated and intubated. Cultures reviewed, reviewed labs. Exam Vital signs and Labs for Last 24 Hours: Temp Pulse Resp BP Pulse Ox 100.1 F H 87 20 156/81 H 95 05/07/20 08:00 05/07/20 08:00 05/07/20 08:00 05/07/20 08:00 05/07/20 08:21 Laboratory Results - last 24 hr 05/03/20 11:25: Fluid Culture Not indicated., S. pneumoniae Antigen Negative, S. pneumoniae Ag Source Urine, Organism ID Not indicated. 05/06/20 18:37: Specimen Source R/r, O2 % 30, ABG pH 7.47 H, ABG pCO2 33.4 L, ABG pO2 83.5, ABG HCO3 23.8, ABG Total CO2 24.8, ABG O2 Saturation 97, ABG Base Excess 0.2, Efra Test Y, PEEP 5 05/07/20 05:22: WBC 9.2, RBC 3.52 L, Hgb 11.6 L D, Hct 36.1 L, MCV 102.5 H, MCH 33.1 H, MCHC 32.3, RDW 14.4, Plt Count 232, MPV 8.9, Neut % (Auto) 76.4, Lymph % (Auto) 11.2, [place] % (Auto) 7.9, Eos % (Auto) 4.1, Baso % (Auto) 0.5, Neut # (Auto) 7.1, Lymph # (Auto) 1.0, [place] # (Auto) 0.7, Eos # (Auto) 0.4, Baso # (Auto) 0.0 05/07/20 05:22: Sodium 136, Potassium 4.0, Chloride 105, Carbon Dioxide 25, Anion Gap 10.0, BUN 17, Creatinine 0.70, Estimated Creat Clear 101, Estimated GFR 113, Est GFR ( Amer) 137, Glucose 171 H, Calcium 8.2 L 05/07/20 06:10: Specimen Source Right radial, O2 % 30, ABG pH 7.39, ABG pCO2 40.9, ABG pO2 70.7 L, ABG HCO3 24.3, ABG Total CO2 25.5, ABG O2 Saturation 95, ABG Base Excess -0.7, Efra Test Patient unable, Vent Rate 14, Tidal Volume 420, PEEP 5 I & O for Last 24 hours: Intake & Output 05/04/20 05/05/20 05/06/20 05/07/20 11:59 11:59 11:59 11:59 Intake Total 3698.625 / 3848.625 1946 / 1946 3542.792 / 3542.792 3595.667 / 3595.667 Output Total 915 / 955 1075 / 1200 1246 / 1311 793 / 793 Balance 2783.625 / 2893.625 871 / 746 2296.792 / 2231.792 2802.667 / 2802.667 Weight 208 lb 212 lb 8 oz 217 lb 4 oz Microbiology Reports for the Last 24 Hours: Microbiology 05/03/20 11:25 Cerebral Spinal Fluid Gram Stain - Final 05/03/20 11:25 Cerebral Spinal Fluid CSF Culture - Preliminary NO GROWTH AFTER 72 HOURS 05/02/20 18:55 Sputum - Endotracheal Tube Aspirate Gram Stain - Final 05/02/20 18:55 Sputum - Endotracheal Tube Aspirate Sputum Culture - Preliminary Gram Positive Bacilli Narrative: Patient is intubated, sedated on fentanyl drip. Low pressure ventilator settings noted as previously. Lungs are clear with ventilatory rhonchi. Heart rate regular, perfusion good except for his significant perfusion deficit in his extremities as previously noted. Assessment and Plan (1) STEMI (ST elevation myocardial infarction) Status: Ruled-out Category: Medical Code(s): I21.3 - ST elevation (STEMI) myocardial infarction of unspecified site (2) Cirrhosis of liver Status: Acute Category: Medical Code(s): K74.60 - Unspecified cirrhosis of liver (3) Alcohol abuse Status: Acute Category: Social Hx Code(s): F10.10 - Alcohol abuse, uncomplicated (4) Elevated liver enzymes Status: Acute Category: Medical Code(s): R74.8 - Abnormal levels of other serum enzymes (5) Hypertension Status: Acute Qualifiers: Hypertension type: essential hypertension Qualified Code(s): I10 - Essential (primary) hypertension Category: Medical Code(s): I10 - Essential (primary) hypertension (6) Respiratory arrest Status: Acute Category: Medical Code(s): R09.2 - Respiratory arrest (7) Unresponsive state Status: Acute Category: Medical Code(s): R41.89 - Other symptoms and signs involving cognitive functions and awareness (8) Meningitis Status: Acute Category: Medical Code(s): G03.9 - Meningitis, unspecified (9) Peripheral vascular disease Status: Chronic Category: Medical Code(s): I73.9 -
[2020-05-07 10:10] LABS: Vancomycin,Trough 18.8 ug/mL (5.0-10.0)
--- NOTE | 2020-05-07 10:11 | PC.NURSE ---
Patient vent settings changed to spontaneous mode, propofol decreased to 15mcg and fentanyl decreased to 20mcg at this time for in preparation for extubation this morning.
--- NOTE | 2020-05-07 11:00 | HMH.ACPN2 ---
Internal Medicine - PN: Subj *Date: 05/07/20 *Time: 08:30 Interval history: still nasal intubated Exam Vital signs and Labs for Last 24 Hours: Temp Pulse Resp BP Pulse Ox 100.1 F H 73 20 141/74 H 96 05/07/20 08:00 05/07/20 10:00 05/07/20 10:00 05/07/20 10:00 05/07/20 10:00 Laboratory Results - last 24 hr 05/06/20 18:37: Specimen Source R/r, O2 % 30, ABG pH 7.47 H, ABG pCO2 33.4 L, ABG pO2 83.5, ABG HCO3 23.8, ABG Total CO2 24.8, ABG O2 Saturation 97, ABG Base Excess 0.2, Efra Test Y, PEEP 5 05/07/20 05:22: WBC 9.2, RBC 3.52 L, Hgb 11.6 L D, Hct 36.1 L, MCV 102.5 H, MCH 33.1 H, MCHC 32.3, RDW 14.4, Plt Count 232, MPV 8.9, Neut % (Auto) 76.4, Lymph % (Auto) 11.2, Saunders % (Auto) 7.9, Eos % (Auto) 4.1, Baso % (Auto) 0.5, Neut # (Auto) 7.1, Lymph # (Auto) 1.0, Saunders # (Auto) 0.7, Eos # (Auto) 0.4, Baso # (Auto) 0.0 05/07/20 05:22: Sodium 136, Potassium 4.0, Chloride 105, Carbon Dioxide 25, Anion Gap 10.0, BUN 17, Creatinine 0.70, Estimated Creat Clear 101, Estimated GFR 113, Est GFR ( Amer) 137, Glucose 171 H, Calcium 8.2 L 05/07/20 06:10: Specimen Source Right radial, O2 % 30, ABG pH 7.39, ABG pCO2 40.9, ABG pO2 70.7 L, ABG HCO3 24.3, ABG Total CO2 25.5, ABG O2 Saturation 95, ABG Base Excess -0.7, Efra Test Patient unable, Vent Rate 14, Tidal Volume 420, PEEP 5 05/07/20 09:21: Vancomycin Trough 18.8 H I & O for Last 24 hours: Intake & Output 05/04/20 05/05/20 05/06/20 05/07/20 11:59 11:59 11:59 11:59 Intake Total 3698.625 / 3848.625 1946 / 1946 3542.792 / 3542.792 3667.667 / 3667.667 Output Total 915 / 955 1075 / 1200 1246 / 1311 993 / 993 Balance 2783.625 / 2893.625 871 / 746 2296.792 / 2231.792 2674.667 / 2674.667 Weight 208 lb 212 lb 8 oz 217 lb 4 oz Microbiology Reports for the Last 24 Hours: Microbiology 05/03/20 11:25 Cerebral Spinal Fluid Gram Stain - Final 05/03/20 11:25 Cerebral Spinal Fluid CSF Culture - Preliminary NO GROWTH AFTER 72 HOURS 05/02/20 18:55 Sputum - Endotracheal Tube Aspirate Gram Stain - Final 05/02/20 18:55 Sputum - Endotracheal Tube Aspirate Sputum Culture - Preliminary Gram Positive Bacilli - Constitutional no acute distress - *Routine HEENT Exam Head: Present: normocephalic Eye: Present: PERRL ENT: Present: mucous membranes moist - *Routine Neck Exam Present: supple. Absent: lymphadenopathy - *Routine Respiratory Exam Present: decreased breath sounds, CTA bilaterally - *Routine Cardiovascular Exam Present: RRR - *Routine Abdominal Exam Present: soft, normoactive bowel sounds, distended. Absent: tenderness - *Routine Extremities Exam Absent: cyanosis, clubbing, edema Comments: warm - *Routine Skin Exam Present: warm. Absent: rash - *Routine Neurological Exam sedated - Routine Psychiatric Exam Present: unable to assess Assessment and Plan (1) STEMI (ST elevation myocardial infarction) Status: Ruled-out Category: Medical Code(s): I21.3 - ST elevation (STEMI) myocardial infarction of unspecified site (2) Cirrhosis of liver Status: Acute Category: Medical Code(s): K74.60 - Unspecified cirrhosis of liver (3) Alcohol abuse Status: Acute Category: Social Hx Code(s): F10.10 - Alcohol abuse, uncomplicated (4) Elevated liver enzymes Status: Acute Category: Medical Code(s): R74.8 - Abnormal levels of other serum enzymes (5) Hypertension Status: Acute Qualifiers: Hypertension type: essential hypertension Qualified Code(s): I10 - Essential (primary) hypertension Category: Medical Code(s): I10 - Essential (primary) hypertension (6) Respiratory arrest Status: Acute Category: Medical Code(s): R09.2 - Respiratory arrest (7) Unresponsive state Status: Acute Category: Medical Code(s): R41.89 - Other symptoms and signs involving cognitive functions and awareness (8) Meningitis Status: Acute Category: Medical
--- NOTE | 2020-05-07 11:11 | HMH.PULMPN ---
Internal Medicine - PN: Subj *Date: 05/07/20 *Time: 11:11 Interval history: Acute respiratory events over the weekend. Patient vent settings remain minimal. Exam Radiology reports for Last 24 Hours: Chest x-ray revealed high ET tube patient, RT informed advanced ET tube before performing SBT - Constitutional Constitutional:: no acute distress, comfortable - HENMT Exam HENMT: normocephalic, atraumatic - Eye Exam Eyes:: normal appearance both eyes and related structures - Neck Exam Neck:: normal visual inspection, thyroid normal, no lymphadenopathy - Respiratory Exam Comments: Bilateral clear breath sounds. Intubated and sedated. ET tube well above the luis, recommended advance ET tube - Cardiovascular Exam Cardiac:: regular rhythm, S1, S2 - GI Exam GI:: soft, no hepatosplenomegaly - Skin Exam Skin: warm, no rash - Neurological Exam Intubated and sedated. Appears comfortable. - Extremities Exam Extremities: no cyanosis, no clubbing, no edema Assessment and Plan (1) STEMI (ST elevation myocardial infarction) Status: Ruled-out Category: Medical Code(s): I21.3 - ST elevation (STEMI) myocardial infarction of unspecified site (2) Cirrhosis of liver Status: Acute Category: Medical Code(s): K74.60 - Unspecified cirrhosis of liver (3) Alcohol abuse Status: Acute Category: Social Hx Code(s): F10.10 - Alcohol abuse, uncomplicated (4) Elevated liver enzymes Status: Acute Category: Medical Code(s): R74.8 - Abnormal levels of other serum enzymes (5) Hypertension Status: Acute Qualifiers: Hypertension type: essential hypertension Qualified Code(s): I10 - Essential (primary) hypertension Category: Medical Code(s): I10 - Essential (primary) hypertension (6) Respiratory arrest Status: Acute Category: Medical Code(s): R09.2 - Respiratory arrest (7) Unresponsive state Status: Acute Category: Medical Code(s): R41.89 - Other symptoms and signs involving cognitive functions and awareness (8) Meningitis Status: Acute Category: Medical Code(s): G03.9 - Meningitis, unspecified (9) Peripheral vascular disease Status: Chronic Category: Medical Code(s): I73.9 - Peripheral vascular disease, unspecified - Assessment and plan all Dx Assessment and Plan for all problems:: #Respiratory failure needing mechanical ventilation: #Altered mentation: 64-year-old male chronic smoker and alcoholic presented to the hospital with altered mentation with possible differentials including seizure episode and meningitis. And was intubated by EMS nasally for airway protection. CSF concern for acute bacterial meningitis with high protein and low glucose, blood cultures positive for strep agalactiae sensitive to ceftriaxone. Patient on admission was initiated on vancomycin and cefepime along with acyclovir and ampicillin was added and since then the patient antibiotics has been changed multiple times and patient currently receiving cefepime along with acyclovir and ampicillin Serum ammonia and TSH levels within normal limits. BG this morning within normal limits. ET tube well above the luis, recommended advancing ET tube before performing SBT. Sputum culture showing gram-positive bacilli. We will continue to monitor This morning patient is well sedated not responding to any painful stimuli. On spontaneous breathing trial having adequate tidal volumes. We will wait for the patient mentation to improve before extubation. Plan: -Advance ET tube before initiation of SBT to prevent any accidental extubation -Wean sedation with SBT and extubation if appropriate -Antibiotics for meningitis and bacteremia as per primary team (patient does not need cefepime to cover any possible pulmonary infection etiology) -Follow the EEG report and monitor for any seizure activity during sedation weaning -Continue propofol and fentanyl for sedation and analgesic management - VAP bundle
--- NOTE | 2020-05-07 11:39 | PC.NURSE ---
1100- propofol and fentanyl weaned to off at this time, patient is awake but cannot follow commands at this time
--- NOTE | 2020-05-07 15:23 | PC.NURSE ---
ETT advanced per RT at this time
--- NOTE | 2020-05-07 17:10 | XR_ITS ---
PROCEDURE: XR CHEST PORTABLE CLINICAL HISTORY: ng tube placement and confirm ett placement COMPARISON: CT CT ANGIO CHEST from 05/02/2020 CR XR CHEST PORTABLE from 05/06/2020 CR XR CHEST PORTABLE from 05/07/2020 CR XR CHEST PORTABLE from 05/07/2020 FINDINGS: 1717 hours Are 2 tubes present which are overlapping 1 another. 1 tube has the tip in the region the right lower lung and is likely the in G-tube and should be withdrawn and repositioned. The endotracheal tube tip appears to be at the level just proximal to the luis and could be withdrawn approximately 4 cm. There are atelectatic changes in the right midlung versus fluid in the right minor fissure. The left lung is clear. IMPRESSION: 1. Malpositioning of the NG tube with tip in the region of the right lower lung zone. Recommend repositioning 2. Low position of endotracheal tube. Recommend withdrawing approximately 4 cm and repeating radiograph after repositioning of the NG tube. 3. Yamil the patient's nurse was telephoned these findings 05/07/2020 at 5:35 p.m. Dictated by: Efra Guido MD 05/07/2020 17:39 Efra Guido MD in [facility] 05/07/2020 17:39
--- NOTE | 2020-05-07 17:51 | XR_ITS ---
PROCEDURE: XR CHEST PORTABLE CLINICAL HISTORY: OG tube placement and ETT placement COMPARISON: CT CT ANGIO CHEST from 05/02/2020 CR XR CHEST PORTABLE from 05/07/2020 CR XR CHEST PORTABLE from 05/07/2020 CR XR CHEST PORTABLE from 05/07/2020 FINDINGS: 1807 hours. Endotracheal tube tip is at the T2-T3 level 6 cm above the luis. Orogastric tube tip appears to be in the region of the body of the stomach. There are low lung volumes. Mild patient rotation to the right. Atelectatic changes are present in the right lower lobe. Increasing density present left lower lobe which may be due to developing pneumonia and/or volume loss. IMPRESSION: 1. Repositioning of nasogastric tube with tip in the region of the body of the stomach. 2. Endotracheal tube tip slightly high at the T2 level. 3. Right lower lobe atelectasis with left lower lobe infiltrate/volume loss Dictated by: Efra Guido MD 05/08/2020 05:50 Efra Guido MD in [facility] 05/08/2020 05:50
[2020-05-08] VITALS (31 sets, daily range): BP systolic 102–166; BP diastolic 58–87; PULSE 70–95; RESP 16–22; TEMP 36.4–37.6; O2SAT 95–99; BMI 29.1
--- NOTE | 2020-05-08 03:48 | PC.NURSE ---
2015 osmolite 1.2 restarted at 20mL/hr after placement confirmed by auscultation and radiography. og at 55cm and secured
--- NOTE | 2020-05-08 03:50 | PC.NURSE ---
2340 after residual checked and placement confirmed by auscultation, tube feeding moved to 40cm
--- NOTE | 2020-05-08 03:52 | PC.NURSE ---
0352 reidual checked and placement confirmed, tube feeding was increased to 60cm.
--- NOTE | 2020-05-08 06:05 | PC.NURSE ---
0551 dipravan reduced to half now infusing at 10mcq/kg for spontaneous breathing trial, pt opens his eyes and grimaces does not follow commands or track.breath sounds remained demished, sats remain greater then 95% on 30 fio2. cardiac technician has shown sr, pt present continues to have generalized 2+ pitting edema. armendariz in place pt has dark yellow urine with occasional sediment. pt is tolerating tube feeding at 60 mL/hr.
[2020-05-08 06:22] LABS: Basophils % 0.2 % (0.1-2.0); Eosinophils # 0.3 K/mm3 (0.0-0.4); Eosinophils % 3.2 % (0.1-12.0); Hematocrit 34.6 % (42.0-52.0); Hemoglobin 11.6 g/dL (14.1-18.0); Lymphocytes # 1.2 K/mm3 (0.7-4.5); Lymphocytes % 12.5 % (10-50); Mean Corpuscular HGB Conc 33.5 g/dL (31.8-35.4); Mean Corpuscular Hemoglobin 34.2 pg (27.0-31.2); Mean Platelet Volume 8.6 fl (7.4-10.4); Monocytes # 0.9 K/mm3 (0.1-1.0); Monocytes % 9.8 % (1.7-9.3); Neutrophils # 6.9 K/mm3 (1.8-7.8); Neutrophils % 74.2 % (37.0-80.0); Platelet Count 239 K/mm3 (142-424); Red Blood Count 3.39 M/mm3 (4.60-6.20); Red Cell Distribution Width 14.8 % (11.5-17.5); White Blood Count 9.3 K/mm3 (4.8-10.8)
--- NOTE | 2020-05-08 06:25 | PC.NURSE ---
patient opens his eyes to name, will raise eyebrows, squeeze eyes shut, wiggle toes on left foot and raise head slightly off of pillow on command
[2020-05-08 06:29] LABS: Blood Urea Nitrogen 23 mg/dl (9-20); Calcium 8.5 mg/dl (8.4-10.2); Carbon Dioxide 26 mmol/L (22.0-30.0); Chloride 105 mmol/L (98-107); Creatinine Clearance Estimated 100 mL/min (50-200); Estimated Glomerular Filt Rate 113 ml/min (>60); GFR (African American) 137 ML/MIN (>60); Glucose 175 mg/dl (74-100); Sodium 136 mmol/L (136-145)
--- NOTE | 2020-05-08 06:29 | PC.NURSE ---
diprivan decreased to 5 mcq, spontaneous breathing trial began
--- NOTE | 2020-05-08 07:15 | PC.NURSE ---
Propofol titrated to 2mcg at this time
[2020-05-08 07:52] LABS: ABG Base Excess -0.3 mmol/L (-2.4-2.3); ABG HCO3 23.4 mmhg (22.0-26.0); ABG Oxygen Saturation 98 % (90-100); ABG PCO2 32.8 mmhg (35.0-45.0); ABG PH 7.47 mmol/L (7.35-7.45); ABG PO2 97.4 mmhg (80-100); ABG TCO2 24.4 mmhg (23-27)
[2020-05-08 07:54] LABS: Allen's Test Patient Unable; Oxygen 30 %; PEEP 5; Pressure Support 8; Source Right Radial
--- NOTE | 2020-05-08 08:50 | HMH.ACPN2 ---
Internal Medicine - PN: Subj *Date: 05/08/20 *Time: 08:50 Interval history: Internal medicine consult follow-up note: Patient did very well overnight. Developed some agitation stating resumption of propofol overnight. Has been off of propofol for an hour and a half on assessment this morning. Is on pressure support settings with the vent. Interactive on exam. Difficult time following instructions due to hearing deficit however moving all 4 extremities, coughing independently, moving tongue on exam. Cultures reviewed, reviewed labs. Blood gas this morning amenable to extubation Exam Vital signs and Labs for Last 24 Hours: Temp Pulse Resp BP Pulse Ox 98.7 F 80 18 126/72 97 05/08/20 04:17 05/08/20 07:00 05/08/20 07:00 05/08/20 07:00 05/08/20 07:00 Laboratory Results - last 24 hr 05/07/20 09:21: Vancomycin Trough 18.8 H 05/08/20 05:44: WBC 9.3, RBC 3.39 L, Hgb 11.6 L, Hct 34.6 L, MCV 102.0 H, MCH 34.2 H, MCHC 33.5, RDW 14.8, Plt Count 239, MPV 8.6, Neut % (Auto) 74.2, Lymph % (Auto) 12.5, Talbot % (Auto) 9.8 H, Eos % (Auto) 3.2, Baso % (Auto) 0.2, Neut # (Auto) 6.9, Lymph # (Auto) 1.2, Talbot # (Auto) 0.9, Eos # (Auto) 0.3, Baso # (Auto) 0.0 05/08/20 05:44: Sodium 136, Potassium 4.0, Chloride 105, Carbon Dioxide 26, Anion Gap 9.0, BUN 23 H D, Creatinine 0.70, Estimated Creat Clear 100, Estimated GFR 113, Est GFR ( Amer) 137, Glucose 175 H, Calcium 8.5 05/08/20 07:36: Specimen Source Right radial, O2 % 30, Efra Test Patient unable, PEEP 5 I & O for Last 24 hours: Intake & Output 05/05/20 05/06/20 05/07/20 05/08/20 23:59 23:59 23:59 23:59 Intake Total 3410.792 / 3410.792 3643.667 / 3643.667 1464 / 1514 860 / 860 Output Total 1360 / 1360 1034 / 1034 1015 / 1040 305 / 305 Balance 2050.792 / 205.792 2609.667 / 2609.667 449 / 474 555 / 555 Weight 94.347 kg 96.388 kg 98.543 kg 97.522 kg Microbiology Reports for the Last 24 Hours: Microbiology 05/02/20 18:55 Sputum - Endotracheal Tube Aspirate Gram Stain - Final 05/02/20 18:55 Sputum - Endotracheal Tube Aspirate Sputum Culture - Final Corynebacterium propinquum 05/03/20 11:25 Cerebral Spinal Fluid Gram Stain - Final 05/03/20 11:25 Cerebral Spinal Fluid CSF Culture - Preliminary NO GROWTH AFTER 4 DAYS Narrative: Intubated, alert, interactive on exam, responds to verbal stimuli, opens eyes spontaneously. Sticks tongue out. Moves all 4 extremities. lungs with good air movement, mechanical breath sounds, no crackles or wheeze; significant coarse rhonchi however Heart rate regular Abdomen soft, normal bowel sounds Peripheral pulses palpable bilaterally lower extremities but thready Brawny skin changes No focal neurologic findings, spontaneous eye opening, cough and gag reflex intact. Assessment and Plan (1) STEMI (ST elevation myocardial infarction) Status: Ruled-out Category: Medical Code(s): I21.3 - ST elevation (STEMI) myocardial infarction of unspecified site (2) Cirrhosis of liver Status: Acute Category: Medical Code(s): K74.60 - Unspecified cirrhosis of liver (3) Alcohol abuse Status: Acute Category: Social Hx Code(s): F10.10 - Alcohol abuse, uncomplicated (4) Elevated liver enzymes Status: Acute Category: Medical Code(s): R74.8 - Abnormal levels of other serum enzymes (5) Hypertension Status: Acute Qualifiers: Hypertension type: essential hypertension Qualified Code(s): I10 - Essential (primary) hypertension Category: Medical Code(s): I10 - Essential (primary) hypertension (6) Respiratory arrest Status: Acute Category: Medical Code(s): R09.2 - Respiratory arrest (7) Unresponsive state Status: Acute Category: Medical Code(s): R41.89 - Other symptoms and signs involving cognitive functions and awareness (8) Meningitis Status: Acute Category: Medical Code(s): G03.9 - Meningitis, unspecified
[2020-05-08 08:57] LABS: Ammonia 32 umol/L (9-30)
--- NOTE | 2020-05-08 10:01 | HMH.ACPN2 ---
Internal Medicine - PN: Subj *Date: 05/09/20 *Time: 06:49 Interval history: doing better and appears ready to try off vent - discussed with dr segovia- pt more alert- Exam Vital signs and Labs for Last 24 Hours: Temp Pulse Resp BP Pulse Ox 98.7 F 80 18 126/72 96 05/08/20 04:17 05/08/20 07:00 05/08/20 07:00 05/08/20 07:00 05/08/20 09:29 Laboratory Results - last 24 hr 05/07/20 09:21: Vancomycin Trough 18.8 H 05/08/20 05:44: WBC 9.3, RBC 3.39 L, Hgb 11.6 L, Hct 34.6 L, MCV 102.0 H, MCH 34.2 H, MCHC 33.5, RDW 14.8, Plt Count 239, MPV 8.6, Neut % (Auto) 74.2, Lymph % (Auto) 12.5, Sutter % (Auto) 9.8 H, Eos % (Auto) 3.2, Baso % (Auto) 0.2, Neut # (Auto) 6.9, Lymph # (Auto) 1.2, Sutter # (Auto) 0.9, Eos # (Auto) 0.3, Baso # (Auto) 0.0 05/08/20 05:44: Sodium 136, Potassium 4.0, Chloride 105, Carbon Dioxide 26, Anion Gap 9.0, BUN 23 H D, Creatinine 0.70, Estimated Creat Clear 100, Estimated GFR 113, Est GFR ( Amer) 137, Glucose 175 H, Calcium 8.5 05/08/20 07:36: Specimen Source Right radial, O2 % 30, ABG pH 7.47 H, ABG pCO2 32.8 L, ABG pO2 97.4, ABG HCO3 23.4, ABG Total CO2 24.4, ABG O2 Saturation 98, ABG Base Excess -0.3, Efra Test Patient unable, PEEP 5 05/08/20 08:41: Ammonia 32 H I & O for Last 24 hours: Intake & Output 05/05/20 05/06/20 05/07/20 05/08/20 11:59 11:59 11:59 11:59 Intake Total 1945 / 1945 0692.792 / 3542.792 9013.667 / 3917.667 1640 / 1640 Output Total 1075 / 1200 1246 / 1311 1043 / 1103 825 / 825 Balance 871 / 746 2296.792 / 2231.792 2624.667 / 2814.667 815 / 815 Weight 208 lb 212 lb 8 oz 217 lb 4 oz 215 lb Microbiology Reports for the Last 24 Hours: Microbiology 05/02/20 18:55 Sputum - Endotracheal Tube Aspirate Gram Stain - Final 05/02/20 18:55 Sputum - Endotracheal Tube Aspirate Sputum Culture - Final Corynebacterium propinquum 05/03/20 11:25 Cerebral Spinal Fluid Gram Stain - Final 05/03/20 11:25 Cerebral Spinal Fluid CSF Culture - Preliminary NO GROWTH AFTER 4 DAYS - Constitutional no acute distress - *Routine HEENT Exam Head: Present: normocephalic Eye: Present: EOMI, PERRL ENT: Present: other (intubated) - *Routine Neck Exam Absent: JVD - *Routine Respiratory Exam Present: patient mechanically ventilated - *Routine Cardiovascular Exam Present: RRR - *Routine Abdominal Exam Present: soft - *Routine Extremities Exam Absent: edema - *Routine Skin Exam Present: intact - *Routine Neurological Exam Present: alert, CN II-XII intact - Routine Psychiatric Exam Present: unable to assess Assessment and Plan (1) STEMI (ST elevation myocardial infarction) Status: Ruled-out Category: Medical Code(s): I21.3 - ST elevation (STEMI) myocardial infarction of unspecified site (2) Cirrhosis of liver Status: Acute Category: Medical Code(s): K74.60 - Unspecified cirrhosis of liver (3) Alcohol abuse Status: Acute Category: Social Hx Code(s): F10.10 - Alcohol abuse, uncomplicated (4) Elevated liver enzymes Status: Acute Category: Medical Code(s): R74.8 - Abnormal levels of other serum enzymes (5) Hypertension Status: Acute Qualifiers: Hypertension type: essential hypertension Qualified Code(s): I10 - Essential (primary) hypertension Category: Medical Code(s): I10 - Essential (primary) hypertension (6) Respiratory arrest Status: Acute Category: Medical Code(s): R09.2 - Respiratory arrest (7) Unresponsive state Status: Acute Category: Medical Code(s): R41.89 - Other symptoms and signs involving cognitive functions and awareness (8) Meningitis Status: Acute Category: Medical Code(s): G03.9 - Meningitis, unspecified (9) Peripheral vascular disease Status: Chronic Category: Medical Code(s): I73.9 - Peripheral vascular disease, unspecified
--- NOTE | 2020-05-08 10:40 | HMH.PULMPN ---
Internal Medicine - PN: Subj *Date: 05/08/20 *Time: 10:40 Interval history: No acute respiratory events overnight. Vent settings remain minimal. Exam - Constitutional Constitutional:: no acute distress, comfortable - HENMT Exam HENMT: normocephalic, atraumatic - Eye Exam Eyes:: eyelids normal, normal conjunctiva - Neck Exam Neck:: thyroid normal, no lymphadenopathy - Respiratory Exam Comments: Patient awake and following commands. Lungs clear to auscultate. Patient successfully extubated on nasal cannula saturating 99%. - Cardiovascular Exam Cardiac:: S1, S2 - GI Exam GI:: soft, no hepatosplenomegaly - Skin Exam Skin: warm, no rash - Neurological Exam Neurological: alert, awake - Extremities Exam Extremities: no cyanosis, no clubbing, no edema - Psychiatric Exam Psychiatric: normal affect Assessment and Plan (1) STEMI (ST elevation myocardial infarction) Status: Ruled-out Category: Medical Code(s): I21.3 - ST elevation (STEMI) myocardial infarction of unspecified site (2) Cirrhosis of liver Status: Acute Category: Medical Code(s): K74.60 - Unspecified cirrhosis of liver (3) Alcohol abuse Status: Acute Category: Social Hx Code(s): F10.10 - Alcohol abuse, uncomplicated (4) Elevated liver enzymes Status: Acute Category: Medical Code(s): R74.8 - Abnormal levels of other serum enzymes (5) Hypertension Status: Acute Qualifiers: Hypertension type: essential hypertension Qualified Code(s): I10 - Essential (primary) hypertension Category: Medical Code(s): I10 - Essential (primary) hypertension (6) Respiratory arrest Status: Acute Category: Medical Code(s): R09.2 - Respiratory arrest (7) Unresponsive state Status: Acute Category: Medical Code(s): R41.89 - Other symptoms and signs involving cognitive functions and awareness (8) Meningitis Status: Acute Category: Medical Code(s): G03.9 - Meningitis, unspecified (9) Peripheral vascular disease Status: Chronic Category: Medical Code(s): I73.9 - Peripheral vascular disease, unspecified - Assessment and plan all Dx Assessment and Plan for all problems:: #Respiratory failure needing mechanical ventilation (resolved): #Meningitis: #Altered mentation, improved 64-year-old male chronic smoker and alcoholic presented to the hospital with altered mentation with possible differentials including seizure episode and meningitis. And was intubated by EMS nasally for airway protection. CSF concern for acute bacterial meningitis with high protein and low glucose, blood cultures positive for strep agalactiae sensitive to ceftriaxone. Patient mentation gradually improved, this morning patient awake and following commands. Has been off sedation since yesterday. Patient successfully extubated this morning, saturating 99% on nasal cannula 3L. We will continue to wean oxygen as tolerated with saturation goal of 92% and above. Continue DuoNebs every 6 hours as needed for shortness of breath or wheezing. Chest x-ray concern for volume overload, patient received 40 mg of Lasix this morning. Patient etiology for respiratory failure needing mechanical ventilation is likely from altered mentation unable to protect airway without any primary lung pathology Swallow evaluation before oral intake Thank you for involving pulmonary in this patient care. Please call with any further questions or concerns.
--- NOTE | 2020-05-08 16:49 | PC.NURSE ---
Patient was extubated at 0926 this morning, was placed on 3LNC, he has tolerated this well this shift, alert to self only at this time but is able to follow commands. lung sounds reveal rhonchi t/o, HR reg, 2+ peripheral edema noted, abd distended, active bowel sounds in all quads, FC patent and draining clear yellow urine, diuresed well with one time dose of lasix this am, peripheral pulses doppler, scattered bruising and scabs noted to extremities and back, vitals have remained stable this shift, will continue to monitor.
--- NOTE | 2020-05-08 16:54 | PC.NURSE ---
0700- Propofol titrated off at this time
--- NOTE | 2020-05-08 17:16 | HMH.SLDYSPHA ---
Speech & Language Evaluation Speech/Language Dysphagia Evaluation Start: 05/08/20 17:12 Freq: ONCE Status: Active Protocol: Document 05/08/20 17:12 SHEEBA (Rec: 05/08/20 17:16 SHEEBA [id number]) Dysphagia Assess/Goals/Plan Assessment Date of Evaluation: 05/08/20 Evaluation Type Initial Certification Assessment/Problems Determine least restictive diet Does Patient Qualify for Service No Qualify/Failure Comment Patient will be followed by speech until he is at baseline for possible diet upgrades. Recommendations PHYSICIAN CERTIFICATION: The specified therapy services are required, authorized, and reviewed every 30 days. Diet Recommendations Mechanical Soft Liquid Type Recommendations Normal/Thin SL Swallow Guidelines Assist w/all meals Dysphagia Swallow Precautions/Strategies Sitting Upright (90 deg), Liquids from Straw,Small Bites and Sips,Alternate Liquids/ Solids Plan Pt/Guardian verbally ack understanding Yes: Family and RN notified of dx/prognosis/goals G -code Required No Speech & Language HPI Language Primary Language Congolese General Information General Current Food Consistancy NPO Dentition Partial - Upper,Good Dentition Oxygen Status Nasal Cannula Patient Orientation Person,Place Ability to Follow Directions Good Communication Ability Moderate Impairment Dysphagia:Food Presentation Evaluation Food Type Mechanical Soft,Regular,Liquid ,Pudding Normal/Thin Liquid Response Falls out of mouth Dysphagia Evaluation Summary Mr. Granados was given the following consistencies: thins via straw and open cup, pudding, mechanical soft, and regular. Mr. Granados did exhibit bolus falling out of mouth with thin liquids via open cup. At this time, it is recommended Mr. Granados be placed on mechanical soft with chopped meats and thin liquids via straw only. Speech therapy will follow for possible diet upgrades. Stroke Dysphagia Assessment PHYSICIAN CERTIFICATION: I certify the specified therapy services for Alejandro Granados are required, authorized, and reviewed every 30 days.
--- NOTE | 2020-05-08 22:30 | PC.NURSE ---
He is A&Ox4. She is [place]. He soft spoken. He has been sitting up in bed messing with his remote. He stated his name is JORDANA. He continues in seizure precautions. Voiding per f/x. Urine is dark yellow, cloudy with sediment.
[2020-05-09] VITALS (14 sets, daily range): BP systolic 123–176; BP diastolic 63–91; PULSE 36–80; RESP 16–20; TEMP 36.6–37; O2SAT 94–100; BMI 28.9
[2020-05-09 06:21] LABS: Basophils % 0.3 % (0.1-2.0); Eosinophils # 0.4 K/mm3 (0.0-0.4); Eosinophils % 4.9 % (0.1-12.0); Hematocrit 33.5 % (42.0-52.0); Hemoglobin 11.6 g/dL (14.1-18.0); Lymphocytes # 0.9 K/mm3 (0.7-4.5); Lymphocytes % 12.1 % (10-50); Mean Corpuscular HGB Conc 34.6 g/dL (31.8-35.4); Mean Corpuscular Hemoglobin 34.8 pg (27.0-31.2); Mean Corpuscular Volume 100.7 fl (80-94); Mean Platelet Volume 8.7 fl (7.4-10.4); Monocytes # 0.7 K/mm3 (0.1-1.0); Monocytes % 9.1 % (1.7-9.3); Neutrophils # 5.3 K/mm3 (1.8-7.8); Neutrophils % 73.7 % (37.0-80.0); Platelet Count 227 K/mm3 (142-424); Red Blood Count 3.33 M/mm3 (4.60-6.20); Red Cell Distribution Width 14.5 % (11.5-17.5); White Blood Count 7.3 K/mm3 (4.8-10.8)
[2020-05-09 06:39] LABS: Anion Gap 7.6 mEq/L (5-15); Blood Urea Nitrogen 26 mg/dl (9-20); Calcium 8.4 mg/dl (8.4-10.2); Carbon Dioxide 28 mmol/L (22.0-30.0); Chloride 104 mmol/L (98-107); Creatinine Clearance Estimated 100 mL/min (50-200); Estimated Glomerular Filt Rate 113 ml/min (>60); GFR (African American) 137 ML/MIN (>60); Glucose 135 mg/dl (74-100); Potassium 3.6 mmoL/L (3.5-5.1); Sodium 136 mmol/L (136-145)
--- NOTE | 2020-05-09 08:22 | HMH.ACPN2 ---
Internal Medicine - PN: Subj *Date: 05/09/20 *Time: 08:22 Interval history: Internal medicine consult follow-up note: Patient did well with extubation yesterday. I reviewed labs, culture results and CSF results once again and discussed case with attending physician. Even patient's improvement and current adequate antibiotic and antiviral therapy we will sign off. Would recommend continuing acyclovir until formal viral cultures have returned negative given his seizures and mental status changes. If seizures or mental status changes recur or do not improve respectively would recommend MRI of brain. Continue current antibiotic therapy to completion. Please reconsult if further input from us is desired. Exam Vital signs and Labs for Last 24 Hours: Temp Pulse Resp BP Pulse Ox 98.6 F 71 18 128/69 98 05/09/20 02:00 05/09/20 06:00 05/08/20 20:00 05/09/20 06:00 05/09/20 06:00 Laboratory Results - last 24 hr 05/08/20 07:36: ABG pH 7.47 H, ABG pCO2 32.8 L, ABG pO2 97.4, ABG HCO3 23.4, ABG Total CO2 24.4, ABG O2 Saturation 98, ABG Base Excess -0.3 05/08/20 08:41: Ammonia 32 H 05/09/20 06:00: WBC 7.3, RBC 3.33 L, Hgb 11.6 L, Hct 33.5 L, MCV 100.7 H, MCH 34.8 H, MCHC 34.6, RDW 14.5, Plt Count 227, MPV 8.7, Neut % (Auto) 73.7, Lymph % (Auto) 12.1, [place] % (Auto) 9.1, Eos % (Auto) 4.9, Baso % (Auto) 0.3, Neut # (Auto) 5.3, Lymph # (Auto) 0.9, [place] # (Auto) 0.7, Eos # (Auto) 0.4, Baso # (Auto) 0.0 05/09/20 06:00: Sodium 136, Potassium 3.6, Chloride 104, Carbon Dioxide 28, Anion Gap 7.6, BUN 26 H, Creatinine 0.70, Estimated Creat Clear 100, Estimated GFR 113, Est GFR ( Amer) 137, Glucose 135 H, Calcium 8.4 I & O for Last 24 hours: Intake & Output 05/06/20 05/07/20 05/08/20 05/09/20 11:59 11:59 11:59 11:59 Intake Total 3542.792 / 3542.792 3667.667 / 3917.667 1640 / 1640 860 / 860 Output Total 1246 / 1311 1043 / 1103 825 / 825 2550 / 2550 Balance 2296.792 / 2231.792 2624.667 / 2814.667 815 / 815 -1690 / -1690 Weight 212 lb 8 oz 217 lb 4 oz 215 lb 213 lb 8 oz Microbiology Reports for the Last 24 Hours: Microbiology 05/03/20 11:25 Cerebral Spinal Fluid Gram Stain - Final 05/03/20 11:25 Cerebral Spinal Fluid CSF Culture - Final NO GROWTH AFTER 5 DAYS 05/03/20 11:25 Cerebral Spinal Fluid Viral Culture - Preliminary Assessment and Plan (1) STEMI (ST elevation myocardial infarction) Status: Ruled-out Category: Medical Code(s): I21.3 - ST elevation (STEMI) myocardial infarction of unspecified site (2) Cirrhosis of liver Status: Acute Category: Medical Code(s): K74.60 - Unspecified cirrhosis of liver (3) Alcohol abuse Status: Acute Category: Social Hx Code(s): F10.10 - Alcohol abuse, uncomplicated (4) Elevated liver enzymes Status: Acute Category: Medical Code(s): R74.8 - Abnormal levels of other serum enzymes (5) Hypertension Status: Acute Qualifiers: Hypertension type: essential hypertension Qualified Code(s): I10 - Essential (primary) hypertension Category: Medical Code(s): I10 - Essential (primary) hypertension (6) Respiratory arrest Status: Acute Category: Medical Code(s): R09.2 - Respiratory arrest (7) Unresponsive state Status: Acute Category: Medical Code(s): R41.89 - Other symptoms and signs involving cognitive functions and awareness (8) Meningitis Status: Acute Category: Medical Code(s): G03.9 - Meningitis, unspecified (9) Peripheral vascular disease Status: Chronic Category: Medical Code(s): I73.9 - Peripheral vascular disease, unspecified
--- NOTE | 2020-05-09 09:11 | DIET.NUTRFU ---
Addendum entered by Janet Weeks 05/11/20 16:33: PO intakes 50% + daily protein shake and small protein snacks BID. Continued moderate hyperglycemia- ~130. Reported weight gain of 20# past 24 hrs, 3+ edema present. Ammonia of 32. Sodium further restricted to 2g/day. He is doing well with his dysphagia diet, speech recommended continuing mech. soft. Pt's helps with feeding when here, continued encouragement/cueing appreciated. Original Note: PO intakes since extubation 50%, pt with continued AMS. Weight stable within 4#. Moderate hyperglycemia- ~150. Increase in ammonia(wnl), pt to start lactulose today. He has been struggling to feed himself, oversized utensils and daily protein shake added to diet order. Encouragement/cueing appreciated.
--- NOTE | 2020-05-09 09:52 | HMH.PULMPN ---
Internal Medicine - PN: Subj *Date: 05/09/20 *Time: 09:52 Interval history: Acute pulmonary events overnight patient respiratory status remained stable, on room air this morning saturating 98% with no respiratory distress Exam - Constitutional Constitutional:: no acute distress, comfortable - HENMT Exam HENMT: normocephalic, atraumatic - Eye Exam Eyes:: eyelids normal - Neck Exam Neck:: thyroid normal, no lymphadenopathy - Respiratory Exam Respiratory:: able to speak in complete sentences, lungs clear, normal breath sounds - Cardiovascular Exam Cardiac:: S1, S2 - GI Exam GI:: soft, no hepatosplenomegaly - Skin Exam Skin: warm, no rash - Neurological Exam Neurological: alert, awake, normal cognition - Extremities Exam Extremities: no cyanosis, no clubbing, no edema Assessment and Plan (1) STEMI (ST elevation myocardial infarction) Status: Ruled-out Category: Medical Code(s): I21.3 - ST elevation (STEMI) myocardial infarction of unspecified site (2) Cirrhosis of liver Status: Acute Category: Medical Code(s): K74.60 - Unspecified cirrhosis of liver (3) Alcohol abuse Status: Acute Category: Social Hx Code(s): F10.10 - Alcohol abuse, uncomplicated (4) Elevated liver enzymes Status: Acute Category: Medical Code(s): R74.8 - Abnormal levels of other serum enzymes (5) Hypertension Status: Acute Qualifiers: Hypertension type: essential hypertension Qualified Code(s): I10 - Essential (primary) hypertension Category: Medical Code(s): I10 - Essential (primary) hypertension (6) Respiratory arrest Status: Acute Category: Medical Code(s): R09.2 - Respiratory arrest (7) Unresponsive state Status: Acute Category: Medical Code(s): R41.89 - Other symptoms and signs involving cognitive functions and awareness (8) Meningitis Status: Acute Category: Medical Code(s): G03.9 - Meningitis, unspecified (9) Peripheral vascular disease Status: Chronic Category: Medical Code(s): I73.9 - Peripheral vascular disease, unspecified - Assessment and plan all Dx Assessment and Plan for all problems:: #Respiratory failure needing mechanical ventilation, resolved: #Smoking with greater than 51-[id number]-ncii smoking history #Altered mentation: 64-year-old male chronic smoker and alcoholic presented to the hospital with altered mentation with possible differentials including seizure episode and meningitis. And was intubated by EMS nasally for airway protection. CSF concern for acute bacterial meningitis with high protein and low glucose, blood cultures positive for strep agalactiae sensitive to ceftriaxone. Patient on admission was initiated on vancomycin and cefepime along with acyclovir and ampicillin was added and since then the patient antibiotics eventually were deescalated to cefepime and acyclovir. Serum ammonia and TSH levels within normal limits. Respiratory status remained stable throughout the course on minimal vent settings, patient mentation eventually improved and extubated to room air. Plan: -Consider de-escalating antibiotics to ceftriaxone for his meningitis and group B strep bacteremia -Follow with CSF viral HSV culture and de-escalate acyclovir if negative -Continue DuoNebs every 6 hours as needed (patient is smoker with more than 58-[id number]-iwta smoking history and complains of minimal exertional dyspnea at baseline, never used any inhalers before patient can be discharged on albuterol as needed) -Pulmonary will follow the patient in clinic in 4 weeks with full PFTs Pulmonary will sign off at this point of time. please call with any further questions.
--- NOTE | 2020-05-09 10:04 | HMH.ACPN2 ---
Internal Medicine - PN: Subj *Date: 05/09/20 *Time: 19:32 Interval history: 64-year-old male patient sitting up in bed she remains extubated from the ventilator. He reports he is feeling better no shortness of breath noted, currently oxygen saturations are 98% on room air he denies any chest pain or shortness of breath during the night. Pulmonology has seen and recommends: -Consider de-escalating antibiotics to ceftriaxone for his meningitis and group B strep bacteremia -Follow with CSF viral HSV culture and de-escalate acyclovir if negative -Continue DuoNebs every 6 hours as needed (patient is smoker with more than 84-cifj-vehf smoking history and complains of minimal exertional dyspnea at baseline, never used any inhalers before patient can be discharged on albuterol as needed) -Pulmonary will follow the patient in clinic in 4 weeks with full PFTs Waiting Exam Vital signs and Labs for Last 24 Hours: Temp Pulse Resp BP Pulse Ox 97.8 F 78 16 163/91 H 100 05/09/20 08:00 05/09/20 08:00 05/09/20 08:00 05/09/20 08:00 05/09/20 08:00 Laboratory Results - last 24 hr 05/09/20 06:00: WBC 7.3, RBC 3.33 L, Hgb 11.6 L, Hct 33.5 L, MCV 100.7 H, MCH 34.8 H, MCHC 34.6, RDW 14.5, Plt Count 227, MPV 8.7, Neut % (Auto) 73.7, Lymph % (Auto) 12.1, [place] % (Auto) 9.1, Eos % (Auto) 4.9, Baso % (Auto) 0.3, Neut # (Auto) 5.3, Lymph # (Auto) 0.9, [place] # (Auto) 0.7, Eos # (Auto) 0.4, Baso # (Auto) 0.0 05/09/20 06:00: Sodium 136, Potassium 3.6, Chloride 104, Carbon Dioxide 28, Anion Gap 7.6, BUN 26 H, Creatinine 0.70, Estimated Creat Clear 100, Estimated GFR 113, Est GFR ( Amer) 137, Glucose 135 H, Calcium 8.4 I & O for Last 24 hours: Intake & Output 0105/07/20 05/08/20 05/09/20 23:59 23:59 23:59 23:59 Intake Total 3643.667 / 3643.667 1464 / 1514 1700 / 1720 500 / 500 Output Total 1034 / 1034 1015 / 1040 2855 / 2855 Balance 2609.667 / 2609.667 449 / 474 -1155 / -1135 500 / 500 Weight 212 lb 8 oz 217 lb 4 oz 215 lb 213 lb 8 oz Microbiology Reports for the Last 24 Hours: Microbiology 05/03/20 11:25 Cerebral Spinal Fluid Viral Culture - Preliminary 05/03/20 11:25 Cerebral Spinal Fluid Gram Stain - Final 05/03/20 11:25 Cerebral Spinal Fluid CSF Culture - Final NO GROWTH AFTER 5 DAYS - Constitutional no acute distress, chronically ill appearing - *Routine HEENT Exam Head: Present: normocephalic Eye: Present: EOMI ENT: Present: mucous membranes moist - *Routine Neck Exam Present: trachea midline. Absent: JVD, tracheal deviation - *Routine Respiratory Exam Present: CTA bilaterally. Absent: accessory muscle use, patient mechanically ventilated - *Routine Cardiovascular Exam Present: RRR. Absent: irregularly irregular - *Routine Abdominal Exam Present: soft, normoactive bowel sounds, rigid. Absent: tenderness - *Routine Extremities Exam Present: normal capillary refill. Absent: clubbing, edema, calf tenderness Comments: Bilateral pedal's cool to touch - *Routine Skin Exam Present: intact, dry. Absent: erythema, jaundice - *Routine Neurological Exam Present: alert, moving all extremities. Absent: sensory deficit - Routine Psychiatric Exam Present: normal affect, normal thought process. Absent: auditory hallucinations, visual hallucinations Assessment and Plan (1) STEMI (ST elevation myocardial infarction) Status: Ruled-out Category: Medical Code(s): I21.3 - ST elevation (STEMI) myocardial infarction of unspecified site (2) Cirrhosis of liver Status: Acute Category: Medical Code(s): K74.60 - Unspecified cirrhosis of liver (3) Alcohol abuse Status: Acute Category: Social Hx Code(s): F10.10 - Alcohol abuse, uncomplicated (4) Elevated liver enzymes Status: Acute Category: Medical Code(s): R74.8 - Abnormal levels of other serum enzymes (5) Hypertension Status: Acute Qualifiers: Hypertension type: essential
--- NOTE | 2020-05-09 10:43 | HMH.PTEV ---
Physical Therapy Evaluation Rehab PT IP Evaluation Start: 05/09/20 09:53 Freq: ONCE Status: Active Protocol: Document 05/09/20 10:37 [place] (Rec: 05/09/20 10:42 CHARL[place]TE [id number]) Subjective/History History History 64-year-old white male with unavailable past medical history except for hypertension and heavy smoking and peripheral vascular disease who had been in his compromise state of health over the past couple of days according to his 's history related to the nursing staff, who over the past 12 hours has been falling frequently. He had fallen quite a bit at home, and then had what the described as a seizure episode and then became unresponsive. EMS was summoned, when they arrived the patient was unresponsive and in respiratory distress. They found that he had significantly elevated blood pressures, he was nasally intubated and brought to the emergency department. Subjective Subjective Pt has no reports of pain Rehab PT IP Eval Objective Appearance Patient Behavior Cooperative Patient Orientation Person,Place,Year Difficulty following instructions none Speech Pattern Appropriate,Delayed Ambulation Patient Able to Ambulate No Balance Ability to Arise Unable Sitting Balance Leans or slides in chair Dynamic Sitting Balance Ability Zero Dynamic Standing Balance Ability Zero Transfers Bed Transfer Ability Maximum x 2 (75% assist) Rehab PT IP prob,goals,plan Problems Date of Evaluation: 05/09/20 PT IP Problems Bed Mobility,Transfers,Gait, Balance Rehab Potential Rehab Potential Fair Equipment Needs Assistive Devices Rolling / Wheeled Walker Plan PT Intervention Plan Bed Mobility,Transfers,Gait, Balance,Therapeutic Exercise PT Plan Frequency BID Duration LOS Discharge Goals Bed Transfer Ability Maximum x 2 (75% assist) Sit to Stand Chair Transfer Ability Maximum x 2 (75% ass
--- NOTE | 2020-05-09 11:10 | HMH.CNCARD ---
History of Present Illness Consult date: 05/09/20 Requesting physician: Scooby Morales Consult reason: known to you Chief complaint: none History of present illness: This is a 64-year-old white gentleman who was admitted to the hospital last week and underwent left cardiac catheterization. He required no percutaneous intervention at that time but was found to have severe stenosis in his right lower extremity. Outpatient management of his PAD in his right leg was recommended at that time. However Dr. Paredes has reviewed the films from the heart cath that Dr. Smiht performed and he does not think that the stenosis in his right lower extremity is a severe as once thought. The patient had an echocardiogram which showed an ejection fraction of approximately 30% and his LV gram showed an ejection fraction around 65%. Dr. Smith also looked at these films and thinks that the patient's heart function is more around 40 to 45% so no LifeVest was indicated. The patient has been extubated from the ventilator at this time. He states that he feels very well this morning. He denies any chest pain or pressure. He denies any shortness of breath or edema. He denies any fever, chills, nausea, vomiting, diarrhea, PND or orthopnea. He denies any pain in his lower extremities. He states that he did get up to the side of the bed today with physical therapy and he states that this felt really good. His lower extremities are cool to touch and he has bilateral posterior tibialis pulses by Doppler. he has no wounds noted to his bilateral feet. [facility] History I have reviewed the patient's past medical history: Yes Medical History: Reports:: Atherosclerotic Heart Disease, Coronary Artery Disease, Hypertension, Myocardial Infarction, Peripheral Artery Disease, Peripheral Vascular Disease *Have you ever received a pneumonia vaccine?: No *Have you received a flu vaccine this season?: No Other Medical History: Reports: Sinus Problems Other Surgeries: Yes: Appendectomy, Sinus Surgery, Other Amputation: No Fractures: No - *Social History Smoking Status: Current every day smoker Tobacco Type: cigarettes # Packs/Day (cigarettes): 1 Alcohol Intake: never Alcohol Intake Frequency:: a few times a month Substance Use Type: denies use *Occupational Status:: retired Housing: house Household Members: spouse *Travel in the last 8 weeks: None Family Hx:: Kidney Disease, Cancer Meds Home Medications Medication Instructions Recorded Confirmed Type Lactulose [Lactulose 10gm/15ml 3 tsp PO DAILY 05/02/20 05/03/20 History Oral Soln] Spironolactone 50 mg PO TID 05/02/20 05/03/20 History Multivitamin [Daily Multiple 1 each PO DAILY 05/03/20 05/03/20 History Vitamin] Allergies Allergy/AdvReac Type Severity Reaction Status Date / Time codeine [CODEINE] Allergy Unknown Unknown Verified 05/03/20 10:18 allergy reaction nicotine AdvReac Severe Unknown Verified 05/03/20 10:18 allergy reaction Exam Vital signs and Labs for Last 24 Hours: Temp Pulse Resp BP Pulse Ox 97.8 F 78 16 128/69 H 100 05/09/20 08:00 05/09/20 08:00 05/09/20 08:00 05/09/20 08:00 05/09/20 08:00 Laboratory Results - last 24 hr 05/09/20 06:00: WBC 7.3, RBC 3.33 L, Hgb 11.6 L, Hct 33.5 L, MCV 100.7 H, MCH 34.8 H, MCHC 34.6, RDW 14.5, Plt Count 227, MPV 8.7, Neut % (Auto) 73.7, Lymph % (Auto) 12.1, [place] % (Auto) 9.1, Eos % (Auto) 4.9, Baso % (Auto) 0.3, Neut # (Auto) 5.3, Lymph # (Auto) 0.9, [place] # (Auto) 0.7, Eos # (Auto) 0.4, Baso # (Auto) 0.0 05/09/20 06:00: Sodium 136, Potassium 3.6, Chloride 104, Carbon Dioxide 28, Anion Gap 7.6, BUN 26 H, Creatinine 0.70, Estimated Creat Clear 100, Estimated GFR 113, Est GFR ( Amer) 137, Glucose 135 H, Calcium 8.4 I & O for Last 24 hours: Intake & Output 05/06/20 05/07/20 05/08/20 05/09/20 23:59 23:59 23:59 23:59 Intake Total 3643.667 / 3643.667 1464 / 1514 1700 / 1720 500 / 500 Output Total 1034 / 103
--- NOTE | 2020-05-09 14:44 | SW/DCPLANNER ---
Addendum entered by [facility] 05/11/20 14:32: Lucero has called stating this patient has been accepted to [facility] to Med Unit: accepting MD is Dr Caballero report phone number: [phone] fax number: [phone] Patient and family are aware of situation. I have also informed MD. Discharge date is unknown at this time. No further COVID testing is needed prior to this admission. Addendum entered by [facility] 05/11/20 13:36: Updated patient information has been faxed to Lucero. Lucero continue to review patient information. Addendum entered by [facility] 05/11/20 09:39: Lucero with [facility] has stated that she is still waiting to hear back from Admissions team regarding status for this patient. I will continue to follow up with: patient, , MD and Lucero. Addendum entered by [facility] 05/10/20 16:41: Additional updated patient information has been faxed to Lucero at [facility] per her request. Addendum entered by [facility] 05/10/20 13:04: Lucero with [facility] has been here to evaluate this patient. Lucero has stated that she has spoke with patient and . Lucero stated that she will need to work up this patient and speak with [facility] then give me an answer regarding admission. Lucero stated that she hopes to have an answer by the end of the day today. I will continue to follow up with Lucero. Original Note: SENT REFERRAL TO SEE IF THIS PATIENT IS A CANDIDATE FOR [facility]... PHYSICAL THERAPISTS, JAY ESTRELLA HAD A CONSERVATION WITH OF THIS PATIENT AND EXPLAINED TO HER THAT HIS CHANCES TO GET BETTER WOULD BE THE BEST PLACE FOR HIM.. I HAVE NOT SPOKEN WITH YET BUT WILL ONCE I FIND OUT IF HE IS A CANDIDATE.. SHE WAS IN THE ROOM WHILE THERAPY WAS IN WITH HIM AND WITNESSED HOW MUCH CARE HE IS TO GET OUT OF BED AND TO MOTIVATE AT ALL.. WAITING TO HEAR BACK TO SEE IF HE WOULD BE ACCEPTED..DISPOSITION COULD BE SOON...
--- NOTE | 2020-05-09 15:03 | HMH.OTEV ---
OT Inpatient Evaluation Rehab OT IP Evaluation Start: 05/09/20 09:54 Freq: ONCE Status: Complete Protocol: [facility]09/20 [facility]Rec: 05/09/20 15:03 [facility] [id number]) Rehab OT IP Assessment Subjective History Pt was oriented x 3 on arrival . Pt agreeable to engage in therapy evaluation. Therapist was unable to find charting on past medical history. It appears from notes, pt has HTN and PVD. Pt had fallen at home multiple times. According to , pt had a seizure episode that left him unconscious. Pt was intubated due to respiratory distress and remained on vent till yesterday 05/08/20. Pt reports prior to hosptialization he lived at home with his . Pt claims he was independent with ADLs and IADL's. Pt also still drove. He did use a walker at times during ambulation. Subjective Who are you? Objective Patient Orientation Person,Place,Birthday Upper Extremity Gross ROM WFL Bed Mobility bed mobility-scooting,bed mobility - supine/sit,bed mobility - rolling Assist Level Moderate x 2 (50% assist) Transfer Training Sit/Stand Transfer Assist Level Moderate x 2 (50% assist) Rehab OT IP prob,goals,plan Problems Date of Evaluation: 05/09/20 OT IP Problems Bed Mobility,Transfers,Gait, Balance,Self care,Safety Rehab Potential Rehab Potential Good Equipment Needs Assistive Devices Rolling / Wheeled Walker Plan OT intervention Plan Bed Mobility,Transfers,Gait, Balance,Self care,Safety, Therapeutic Exercise OT Plan Frequency Daily Duration LOS Discharge Goals Bed Mobility Ability Assistance x1 Sit to Stand Chair Transfer Ability Minimal x 1 (25% assist) Chair Transfer Ability Minimal x 1 (25% assist) Chair Transfer Technique Sit to/from Ambulatory Chair Transfer Assistive Devices Rolling Walker Self care skills fully toilet trained,uses utensils to feed self Feeding
--- NOTE | 2020-05-09 15:26 | FL_ITS ---
PROCEDURE: FL BARIUM SWALLOW MODIFIED CLINICAL INDICATION: Dysphagia COMPARISON: No exams were available for comparison TECHNIQUE: Patient administered varying consistencies of barium contrast, while viewed in lateral position under real-time fluoroscopy with cine recording. FLUOROSCOPY TIME: The study was performed in conjunction with speech pathologist. Please see that report & recommendations. FINDINGS: Patient was given varying consistencies of barium. There was difficulty with bolus formation and propulsion. No aspiration or penetration apparent.. IMPRESSION: Difficulty with bolus formation and propulsion otherwise negative modified barium swallow. No penetration or aspiration apparent Please see speech pathologist report and recommendations. Dictated by: Efra Guido MD 05/11/2020 09:50 Efra Guido MD in [place] 05/11/2020 09:50
--- NOTE | 2020-05-09 16:48 | HMH.SLMBS2 ---
Speech & Language Evaluation Speech/Language Mod Barium Swallow Start: 05/09/20 16:37 Freq: once Status: Complete Protocol: Document 05/09/20 16:37 SHEEBA (Rec: 05/09/20 16:48 SHEEBA [id number]) General Information General Current Food Consistancy Mechanical Soft,Thin Liquids Dentition Partial - Upper,Good Dentition Oxygen Status Room Air Facial Symmetry Symmetrical Patient Orientation Person,Place,Time Ability to Follow Directions Excellent Communication Ability Mild Impairment MBS Recommendations Diet Dietary Recommendations Mechanical Soft,Thin Liquids Treatment/Strategies Strategy/Precaution Recommend Sitting Upright (90 deg), Liquids from Cup,Small Bites and Sips,Alternate Liquids/ Solids Mod Barium Swallow Impressions Summary and Impressions Oral Phase Impression Mild Impairment Oral Phase Summary Mr. Granados was given the following consistencies: thins via straw and open cup, pudding, mechanical soft, regular, and pill with thin wash. Mr. Granados had difficulty with bolus propulsion with pill. Pharyngeal Phase Impression Mild Impairment Pharyngeal Phase Summary Mr. Granados did exhibit flash penetration with thin liquids from straw. At this time, liquids should be given from open cup only. Speech/Language MBS Assessment/Goals/Plan Assessment Date of Evaluation: 05/09/20 Evaluation Type Initial Certification Assessment/Problems Dysphagia Does Patient Qualify for Service Yes Qualify/Failure Comment Mr. Granados will be given exercises to strengthen laryngeal muscles for increasing laryngeal elevation . Recommendations PHYSICIAN CERTIFICATION: The specified therapy services are required, authorized, and reviewed every 30 days. Pt will be seen # times/week 1 for # weeks 1 Diet Recommendations Mechanical Soft Liquid Type Recommendations Normal/Thin SL Swallow Guidelines Standard Aspiration Prec. Crush Meds Crush all meds Dysphagia Swallow Precautions/Strategies Sitting Upright (90 deg), Liquids from Cup Plan Pt/Guardian verbally ack understanding Yes of dx/prognosis/goals G -code Required No STG-Asp Aft/Laryn
--- NOTE | 2020-05-09 18:07 | PC.NURSE ---
Alert and oriented x4. Wheezes noted to upper lobes bilaterally. He is on RA w/O2 sats running in the upper 90's. Bowel sounds are active x4. Abdomen is large, round and distended. He has had several loose stools this shift. Green is to bedside draining dark urine with sediment. Approx 900 mls out this shift. Pt attempted to feed himself this am but ultimately had to be fed. He has multiple bruising noted his body. +2 generalized edema. Family has taken turns visiting during visiting hours. He is currently sitting up in bed watching the news. No complaints or requests at this time.
--- NOTE | 2020-05-09 21:54 | PC.NURSE ---
He is A&Ox4. He is sitting up in bed watching television. He ate vanilla pudding with weighted utensils. Generalized trace edema. Voiding per f/c. Urine is dark yellow, cloudy with sediment. He denies pain. Continues on RA.
[2020-05-10] VITALS (9 sets, daily range): BP systolic 110–154; BP diastolic 50–76; PULSE 61–90; RESP 16–20; TEMP 36.6–37; O2SAT 94–98; BMI 28.9
[2020-05-10 06:23] LABS: Basophils % 0.3 % (0.1-2.0); Eosinophils # 0.3 K/mm3 (0.0-0.4); Eosinophils % 4.1 % (0.1-12.0); Hematocrit 33.7 % (42.0-52.0); Lymphocytes # 0.8 K/mm3 (0.7-4.5); Lymphocytes % 9.7 % (10-50); Mean Corpuscular Hemoglobin 32.1 pg (27.0-31.2); Mean Corpuscular Volume 103.6 fl (80-94); Mean Platelet Volume 8.6 fl (7.4-10.4); Monocytes # 0.5 K/mm3 (0.1-1.0); Monocytes % 6.3 % (1.7-9.3); Neutrophils # 6.3 K/mm3 (1.8-7.8); Neutrophils % 79.6 % (37.0-80.0); Platelet Count 248 K/mm3 (142-424); Red Blood Count 3.25 M/mm3 (4.60-6.20); Red Cell Distribution Width 14.7 % (11.5-17.5)
[2020-05-10 06:43] LABS: Anion Gap 9.2 mEq/L (5-15); Blood Urea Nitrogen 24 mg/dl (9-20); Calcium 8.4 mg/dl (8.4-10.2); Carbon Dioxide 26 mmol/L (22.0-30.0); Chloride 101 mmol/L (98-107); Creatinine Clearance Estimated 100 mL/min (50-200); Estimated Glomerular Filt Rate 113 ml/min (>60); GFR (African American) 137 ML/MIN (>60); Glucose 127 mg/dl (74-100); Potassium 3.2 mmoL/L (3.5-5.1); Sodium 133 mmol/L (136-145)
[2020-05-10 06:53] LABS: Hemoglobin 10.4 g/dL (14.1-18.0)
--- NOTE | 2020-05-10 16:41 | HMH.ACPN2 ---
Internal Medicine - PN: Subj *Date: 05/10/20 *Time: 09:00 Interval history: pt alert talking today Exam Vital signs and Labs for Last 24 Hours: Temp Pulse Resp BP Pulse Ox 98.1 F 69 17 139/74 98 05/10/20 16:00 05/10/20 16:00 05/10/20 16:00 05/10/20 16:00 05/10/20 16:00 Laboratory Results - last 24 hr 05/10/20 05:45: WBC 8.0, RBC 3.25 L, Hgb 10.4 L D, Hct 33.7 L, MCV 103.6 H, MCH 32.1 H, MCHC 31.0 L, RDW 14.7, Plt Count 248, MPV 8.6, Neut % (Auto) 79.6, Lymph % (Auto) 9.7 L, [place] % (Auto) 6.3, Eos % (Auto) 4.1, Baso % (Auto) 0.3, Neut # (Auto) 6.3, Lymph # (Auto) 0.8, [place] # (Auto) 0.5, Eos # (Auto) 0.3, Baso # (Auto) 0.0 05/10/20 05:45: Sodium 133 L, Potassium 3.2 L, Chloride 101, Carbon Dioxide 26, Anion Gap 9.2, BUN 24 H, Creatinine 0.70, Estimated Creat Clear 100, Estimated GFR 113, Est GFR ( Amer) 137, Glucose 127 H, Calcium 8.4 I & O for Last 24 hours: Intake & Output 05/08/20 05/09/20 05/10/20 05/11/20 11:59 11:59 11:59 11:59 Intake Total 1640 / 1640 1340 / 1340 2130 / 2490 600 / 600 Output Total 825 / 825 2550 / 2550 1250 / 1510 260 / 260 Balance 815 / 815 -1210 / -1210 880 / 980 340 / 340 Weight 215 lb 213 lb 8 oz 213 lb 8.001 oz - Constitutional no acute distress - *Routine HEENT Exam Head: Present: normocephalic Eye: Present: PERRL ENT: Present: mucous membranes moist - *Routine Neck Exam Present: supple. Absent: lymphadenopathy - *Routine Respiratory Exam Present: decreased breath sounds, rhonchi - *Routine Cardiovascular Exam Present: RRR - *Routine Abdominal Exam Present: soft, normoactive bowel sounds. Absent: tenderness - *Routine Extremities Exam Present: normal capillary refill. Absent: cyanosis, clubbing, edema - *Routine Skin Exam Present: warm. Absent: rash - *Routine Neurological Exam Present: alert, oriented X3 - Routine Psychiatric Exam Present: normal affect Assessment and Plan (1) STEMI (ST elevation myocardial infarction) Status: Ruled-out Category: Medical Code(s): I21.3 - ST elevation (STEMI) myocardial infarction of unspecified site (2) Cirrhosis of liver Status: Acute Category: Medical Code(s): K74.60 - Unspecified cirrhosis of liver (3) Alcohol abuse Status: Acute Category: Social Hx Code(s): F10.10 - Alcohol abuse, uncomplicated (4) Elevated liver enzymes Status: Acute Category: Medical Code(s): R74.8 - Abnormal levels of other serum enzymes (5) Hypertension Status: Acute Qualifiers: Hypertension type: essential hypertension Qualified Code(s): I10 - Essential (primary) hypertension Category: Medical Code(s): I10 - Essential (primary) hypertension (6) Respiratory arrest Status: Acute Category: Medical Code(s): R09.2 - Respiratory arrest (7) Unresponsive state Status: Acute Category: Medical Code(s): R41.89 - Other symptoms and signs involving cognitive functions and awareness (8) Meningitis Status: Acute Category: Medical Code(s): G03.9 - Meningitis, unspecified (9) Peripheral vascular disease Status: Chronic Category: Medical Code(s): I73.9 - Peripheral vascular disease, unspecified - Assessment and plan all Dx Assessment and Plan for all problems:: rounded with dr smith all orders per dr smith poss transfer to [facility] discuss with family
[2020-05-11] VITALS (8 sets, daily range): BP systolic 119–138; BP diastolic 59–99; PULSE 70–91; RESP 16–18; TEMP 36.4–36.8; O2SAT 93–99; BMI 31.6
--- NOTE | 2020-05-11 04:25 | PC.NURSE ---
expiratory wheezes noted. [place] [facility] [place] iv patent and no s/s of infiltration or infection. armendariz draining orange tinge urine. generalized pitting edema. alert and oriented. call light in reach. bed safety on. telemetry reads nsr with inverted t waves. vss. will continue to monitor
--- NOTE | 2020-05-11 06:00 | XR_ITS ---
PROCEDURE: XR CHEST PORTABLE CLINICAL HISTORY: pneumonia COMPARISON: CT CT ANGIO CHEST from 05/02/2020 CR XR CHEST PORTABLE from 05/07/2020 CR XR CHEST PORTABLE from 05/07/2020 CR XR CHEST PORTABLE from 05/07/2020 FINDINGS: The cardiomediastinal silhouette and pulmonary vascularity are within normal limits. Atelectatic changes in the right lower lobe have improved. Nasogastric tube and endotracheal tube have been removed. There is patchy density in the right upper lobe which could be due to summation artifact from overlying vessels or patchy infiltrate. Improved left lower lobe infiltrate No acute bony abnormalities. IMPRESSION: Removal of endotracheal tube and nasogastric tube and rim proven in right lower lobe atelectasis and left lower lobe infiltrate. Possible faint infiltrate right lobe Dictated by: Efra Guido MD 05/11/2020 06:15 Efra Guido MD in [place] 05/11/2020 06:15
[2020-05-11 07:23] LABS: Basophils % 0.4 % (0.1-2.0); Eosinophils # 0.4 K/mm3 (0.0-0.4); Eosinophils % 5.3 % (0.1-12.0); Hematocrit 33.9 % (42.0-52.0); Hemoglobin 11.3 g/dL (14.1-18.0); Lymphocytes # 0.8 K/mm3 (0.7-4.5); Lymphocytes % 10.2 % (10-50); Mean Corpuscular HGB Conc 33.2 g/dL (31.8-35.4); Mean Corpuscular Hemoglobin 33.9 pg (27.0-31.2); Mean Corpuscular Volume 102.3 fl (80-94); Mean Platelet Volume 8.5 fl (7.4-10.4); Monocytes # 0.6 K/mm3 (0.1-1.0); Monocytes % 6.9 % (1.7-9.3); Neutrophils # 6.4 K/mm3 (1.8-7.8); Neutrophils % 77.1 % (37.0-80.0); Platelet Count 281 K/mm3 (142-424); Red Blood Count 3.32 M/mm3 (4.60-6.20); Red Cell Distribution Width 15.4 % (11.5-17.5); White Blood Count 8.2 K/mm3 (4.8-10.8)
--- NOTE | 2020-05-11 08:22 | US_ITS ---
PROCEDURE: US ABDOMEN LIMITED CLINICAL INDICATION: liver failure; check for ascites COMPARISON: US BX US BIOPSY OR PARACENTESIS from 08/13/2015 US BX US BIOPSY OR PARACENTESIS from 08/15/2015 US RUQ US RUQ-(ABD LTD)1ORGAN/QUAD/FU from 08/17/2015 FINDINGS: Survey is performed of both upper and lower quadrant showing a small amount of ascites. Large amount of ascites is not demonstrated. IMPRESSION: Small amount of ascites Dictated by: fEra Guido MD 05/11/2020 10:07 Efra Guido MD in [place] 05/11/2020 10:07
--- NOTE | 2020-05-11 09:10 | HMH.ACPN2 ---
Internal Medicine - PN: Subj *Date: 05/11/20 *Time: 09:10 Interval history: pt eating breakfast. states he is doing well. sat up in chair most of the day yesterday. Exam Vital signs and Labs for Last 24 Hours: Temp Pulse Resp BP Pulse Ox 97.6 F 72 18 133/72 98 05/11/20 08:00 05/11/20 08:00 05/11/20 08:00 05/11/20 08:00 05/11/20 08:00 Laboratory Results - last 24 hr 05/11/20 06:30: WBC 8.2, RBC 3.32 L, Hgb 11.3 L, Hct 33.9 L, MCV 102.3 H, MCH 33.9 H, MCHC 33.2, RDW 15.4, Plt Count 281, MPV 8.5, Neut % (Auto) 77.1, Lymph % (Auto) 10.2, [place] % (Auto) 6.9, Eos % (Auto) 5.3, Baso % (Auto) 0.4, Neut # (Auto) 6.4, Lymph # (Auto) 0.8, [place] # (Auto) 0.6, Eos # (Auto) 0.4, Baso # (Auto) 0.0 I & O for Last 24 hours: Intake & Output 05/08/20 05/09/20 05/10/20 05/11/20 11:59 11:59 11:59 11:59 Intake Total 1640 / 1640 1340 / 1340 2130 / 2490 1640 / 1640 Output Total 825 / 825 2550 / 2550 1250 / 1510 660 / 660 Balance 815 / 815 -1210 / -1210 880 / 980 980 / 980 Weight 215 lb 213 lb 8 oz 213 lb 8.001 oz 234 lb - Constitutional no acute distress, obese, chronically ill appearing - *Routine HEENT Exam Head: Present: normocephalic Eye: Present: PERRL ENT: Present: mucous membranes moist - *Routine Neck Exam Present: supple. Absent: lymphadenopathy - *Routine Respiratory Exam Present: CTA bilaterally - *Routine Cardiovascular Exam Present: RRR - *Routine Abdominal Exam Present: soft, normoactive bowel sounds, distended. Absent: tenderness Comments: edema - *Routine Extremities Exam Present: edema. Absent: cyanosis, clubbing Comments: 3+ edema to lower ext - *Routine Skin Exam Present: warm, ecchymosis. Absent: rash - *Routine Neurological Exam Present: alert, oriented X3 - Routine Psychiatric Exam Present: normal affect Assessment and Plan (1) STEMI (ST elevation myocardial infarction) Status: Ruled-out Category: Medical Code(s): I21.3 - ST elevation (STEMI) myocardial infarction of unspecified site (2) Cirrhosis of liver Status: Acute Category: Medical Code(s): K74.60 - Unspecified cirrhosis of liver (3) Alcohol abuse Status: Acute Category: Social Hx Code(s): F10.10 - Alcohol abuse, uncomplicated (4) Elevated liver enzymes Status: Acute Category: Medical Code(s): R74.8 - Abnormal levels of other serum enzymes (5) Hypertension Status: Acute Qualifiers: Hypertension type: essential hypertension Qualified Code(s): I10 - Essential (primary) hypertension Category: Medical Code(s): I10 - Essential (primary) hypertension (6) Respiratory arrest Status: Acute Category: Medical Code(s): R09.2 - Respiratory arrest (7) Unresponsive state Status: Acute Category: Medical Code(s): R41.89 - Other symptoms and signs involving cognitive functions and awareness (8) Meningitis Status: Acute Category: Medical Code(s): G03.9 - Meningitis, unspecified (9) Peripheral vascular disease Status: Chronic Category: Medical Code(s): I73.9 - Peripheral vascular disease, unspecified - Assessment and plan all Dx Assessment and Plan for all problems:: rounded with dr bonilla all orders per dr bonilla restart diuretics check pt/inr french consult poss paracentesis us abd for fluid
[2020-05-11 09:15] LABS: Chloride 98 mmol/L (98-107); Sodium 131 mmol/L (136-145)
[2020-05-11 09:17] LABS: Potassium 2.7 mmoL/L (3.5-5.1)
[2020-05-11 09:18] LABS: Blood Urea Nitrogen 23 mg/dl (9-20); Creatinine Clearance Estimated 109 mL/min (50-200); Estimated Glomerular Filt Rate 113 ml/min (>60); GFR (African American) 137 ML/MIN (>60)
[2020-05-11 09:19] LABS: Anion Gap 8.7 mEq/L (5-15); Calcium 8.4 mg/dl (8.4-10.2); Carbon Dioxide 27 mmol/L (22.0-30.0); Glucose 111 mg/dl (74-100)
--- NOTE | 2020-05-11 09:50 | PC.NURSE ---
Radiology personnel at bedside for /S.
--- NOTE | 2020-05-11 13:34 | PC.NURSE ---
Pt is not tolerating IV potassium at 50 ml/hr as ordered, c/o burning at IV site. Rate decreased to 30 ml/hr, tolerating infusion well so far. Consulted with Mirian in pharmacy to make sure this will be ok.
--- NOTE | 2020-05-11 14:59 | P.CONS_ITS ---
Gastroenterology Consult Consult:: Gastroenterology Consultation Date of Service-May 11, 2020 History of Present Illness: Mr. Granados is a 64-year-old gentleman with a long history of alcohol abuse and tobacco abuse who presents with unresponsiveness and was intubated. The patient does have a history of peripheral vascular disease and hypertension. He had been falling recently. He was intubated. His CAT scan of the head was normal showing no hemorrhagic stroke. His cardiac catheterization revealed some peripheral vascular arterial disease but normal coronary arteries and normal ejection fraction. His CAT scan did show evidence of cirrhosis with a small amount of ascites. The patient formerly was heavy with moonshine consumption but more recently drinks beer and wine intermittently. He is on milk thistle. The patient reports no abdominal pain. He primarily has had lower extremity edema which has lessened some. Past Medical History: 1. Hypertension 2. Tobacco abuse 3. Alcohol abuse Past Surgical History: 1. Appendectomy 2. Sinus surgery Medications: 1. Milk thistle 2. Propranolol 3. Spironolactone 4. Lactulose 5. Folate ALLERGIES: Codeine Social History: The patient is and lives in [place]. Family History: Noncontributory Review of Systems: See chart Physical Examination: Gen.: The patient is a well-developed well-nourished individual in no acute distress HEENT: Normocephalic/atraumatic extraocular movements are intact anicteric Neck: Supple no lymphadenopathy Chest: Clear to auscultation Cardiovascular: Regular rate and rhythm Abdomen: Normoactive bowel sounds soft, no ballotable liver or tense ascites, minimal tenderness, moderate hepatosplenomegaly Extremities: 2+ pitting edema Labs: WBC 8.2, hematocrit 33.9, hemoglobin 11.3, platelet count 281,000, potassium 2.7, sodium 131, AST 45, ALT 43, total bilirubin 1.4, alkaline phosphatase 151, ammonia 32 Radiology: Ultrasound small amount of ascites Impression/Plan: 1. Cirrhosis. Etiology is most likely alcohol but I would like to check additional serologic values to rule out chronic viral hepatitis or autoimmune h epatitis or inherited forms of liver disease. His meld score was 11. He does have scant ascites. He also had an elevated ammonia level. I will recommend hepatic fibrotic markers. Presently, liver biopsy is not warranted because of the ascites. I would recommend that he follow-up as an outpatient and 2 to 4 weeks with clinic at [place].
--- NOTE | 2020-05-11 15:54 | PC.NURSE ---
called Dr. Stacy's and spoke with Josy. she will review notes and call patient for appointment
--- NOTE | 2020-05-11 16:47 | PC.NURSE ---
1600 RN reassessment completed. Pt has spent majority of the shift up in the chair, talking with visitors. Alert and oriented x4. 3+ edema remains to BLE with weeping noted. Abd round and firm, nontender per pt, BS active in all quads. Lung sounds with scattered wheezes, no s/s distress, no c/o SOA. F/C patent and draining bright, yellow urine. Pt will receive shower from staff today as requested, no other needs/concerns voiced. Will continue to monitor.
[2020-05-12] VITALS (9 sets, daily range): BP systolic 123–155; BP diastolic 66–85; PULSE 67–99; RESP 16–18; TEMP 36.4–36.9; O2SAT 96–100; BMI 30.9
--- NOTE | 2020-05-12 05:04 | PC.NURSE ---
no acute changes since prior assessment, AxOx4, pt has remained on room air with sats 96-99%, HR 67-89, no complaints of SOA or chest pain, lungs CTA, armendariz patent and draining clear yellow urine
[2020-05-12 08:53] LABS: Ferritin 553 ng/ml (17.9-464)
--- NOTE | 2020-05-12 09:28 | HMH.ACPN2 ---
Internal Medicine - PN: Subj *Date: 05/12/20 *Time: 09:28 Interval history: doing better - sitting in chair - vss - discussed rehab- daughter present - reviewed gi and card notes - has lower ext edema Exam Vital signs and Labs for Last 24 Hours: Temp Pulse Resp BP Pulse Ox 97.6 F 89 18 123/67 99 05/12/20 04:00 05/12/20 04:00 05/12/20 04:00 05/12/20 04:00 05/12/20 04:00 Laboratory Results - last 24 hr 05/12/20 06:12: Ferritin 553 H I & O for Last 24 hours: Intake & Output 05/09/20 05/10/20 05/11/20 05/12/20 11:59 11:59 11:59 11:59 Intake Total 1340 / 1340 2130 / 2490 1640 / 1640 980 / 980 Output Total 2550 / 2550 1250 / 1510 660 / 660 3500 / 3500 Balance -1210 / -1210 880 / 980 980 / 980 -2520 / -2520 Weight 213 lb 8 oz 213 lb 8.001 oz 234 lb 228 lb 10.65 oz Microbiology Reports for the Last 24 Hours: Microbiology 05/03/20 01:50 Rectum CRE Surveillance Culture - Final Negative 05/02/20 21:15 Blood Blood Culture - Final Strep agalactiae - (group b) 05/02/20 21:15 Blood Blood Culture - Final Strep agalactiae - (group b) - Constitutional no acute distress, obese - *Routine HEENT Exam Head: Present: normocephalic Eye: Present: EOMI, PERRL ENT: Present: mucous membranes dry - *Routine Neck Exam Absent: JVD - *Routine Respiratory Exam Present: decreased breath sounds - *Routine Cardiovascular Exam Present: RRR, murmur - *Routine Abdominal Exam Present: soft - *Routine Extremities Exam Present: edema - *Routine Skin Exam Present: intact - *Routine Neurological Exam Present: alert, oriented X3, CN II-XII intact - Routine Psychiatric Exam Present: normal affect Assessment and Plan (1) STEMI (ST elevation myocardial infarction) Status: Ruled-out Category: Medical Code(s): I21.3 - ST elevation (STEMI) myocardial infarction of unspecified site (2) Cirrhosis of liver Status: Acute Category: Medical Code(s): K74.60 - Unspecified cirrhosis of liver (3) Alcohol abuse Status: Acute Category: Social Hx Code(s): F10.10 - Alcohol abuse, uncomplicated (4) Elevated liver enzymes Status: Acute Category: Medical Code(s): R74.8 - Abnormal levels of other serum enzymes (5) Hypertension Status: Acute Qualifiers: Hypertension type: essential hypertension Qualified Code(s): I10 - Essential (primary) hypertension Category: Medical Code(s): I10 - Essential (primary) hypertension (6) Respiratory arrest Status: Acute Category: Medical Code(s): R09.2 - Respiratory arrest (7) Unresponsive state Status: Acute Category: Medical Code(s): R41.89 - Other symptoms and signs involving cognitive functions and awareness (8) Meningitis Status: Acute Category: Medical Code(s): G03.9 - Meningitis, unspecified (9) Peripheral vascular disease Status: Chronic Category: Medical Code(s): I73.9 - Peripheral vascular disease, unspecified (10) Hypokalemia Status: Acute Category: Medical Code(s): E87.6 - Hypokalemia (11) COVID-19 virus IgG antibody detected Status: Acute Category: Medical Code(s): Z01.84 - Encounter for antibody response examination (12) Coronary artery disease Status: Acute Qualifiers: Coronary Disease-Associated Artery/Lesion type: [place] artery [place] vs. transplanted heart: [place] heart Associated angina: without angina Qualified Code(s): I25.10 - Atherosclerotic heart disease of [place] coronary artery without angina pectoris Category: Medical Code(s): I25.10 - Atherosclerotic heart disease of [place] coronary artery without angina pectoris (13) Cardiomyopathy Status: Acute Qualifiers: Cardiomyopathy type: unspecified Qualified Code(s): I42.9 - Cardiomyopathy, unspecified Category: Medical Code(s): I42.9 - Cardiomyopathy, unspecified (14) Hepatic enceph
[2020-05-12 11:34] LABS: Basophils # 0.1 K/mm3 (0-0.2); Basophils % 0.5 % (0.1-2.0); Chloride 95 mmol/L (98-107); Eosinophils # 0.6 K/mm3 (0.0-0.4); Eosinophils % 4.3 % (0.1-12.0); Hematocrit 36.6 % (42.0-52.0); Hemoglobin 11.9 g/dL (14.1-18.0); Lymphocytes % 7.5 % (10-50); Mean Corpuscular HGB Conc 32.5 g/dL (31.8-35.4); Mean Corpuscular Hemoglobin 33.5 pg (27.0-31.2); Mean Corpuscular Volume 103.1 fl (80-94); Mean Platelet Volume 8.9 fl (7.4-10.4); Monocytes # 0.7 K/mm3 (0.1-1.0); Monocytes % 5.6 % (1.7-9.3); Neutrophils # 10.5 K/mm3 (1.8-7.8); Neutrophils % 82.1 % (37.0-80.0); Platelet Count 333 K/mm3 (142-424); Red Blood Count 3.55 M/mm3 (4.60-6.20); Red Cell Distribution Width 15.5 % (11.5-17.5); White Blood Count 12.7 K/mm3 (4.8-10.8)
[2020-05-12 11:35] LABS: Potassium 3.3 mmoL/L (3.5-5.1); Sodium 131 mmol/L (136-145)
[2020-05-12 11:37] LABS: Alanine Aminotransferase 76 U/L (12-78); Alkaline Phosphatase 178 U/L (38-126); Anion Gap 11.3 mEq/L (5-15); Aspartate Amino Transferase 59 U/L (17-59); Bilirubin,Total 1.2 mg/dl (0.2-1.3); Blood Urea Nitrogen 17 mg/dl (9-20); Carbon Dioxide 28 mmol/L (22.0-30.0); Creatinine Clearance Estimated 107 mL/min (50-200); Estimated Glomerular Filt Rate 97 ml/min (>60); GFR (African American) 117 ML/MIN (>60)
[2020-05-12 11:38] LABS: Albumin Level 3.2 g/dl (3.5-5.0); Ammonia 27 umol/L (9-30); Calcium 8.8 mg/dl (8.4-10.2); Globulin 3.2 g/dL (1.3-3.2); Glucose 155 mg/dl (74-100); Total Protein,Serum 6.4 g/dl (6.3-8.2)
--- NOTE | 2020-05-12 12:14 | HMH.ACPN ---
Internal Medicine - PN: Subj *Date: 05/12/20 *Time: 12:14 Exam Vital signs and Labs for Last 24 Hours: Temp Pulse Resp BP Pulse Ox 97.6 F 99 H 18 127/85 98 05/12/20 08:00 05/12/20 08:00 05/12/20 08:00 05/12/20 08:00 05/12/20 08:00 Laboratory Results - last 24 hr 05/12/20 06:12: Ferritin 553 H 05/12/20 11:05: WBC 12.7 H D, RBC 3.55 L, Hgb 11.9 L, Hct 36.6 L, MCV 103.1 H, MCH 33.5 H, MCHC 32.5, RDW 15.5, Plt Count 333, MPV 8.9, Neut % (Auto) 82.1 H, Lymph % (Auto) 7.5 L, [place] % (Auto) 5.6, Eos % (Auto) 4.3, Baso % (Auto) 0.5, Neut # (Auto) 10.5 H, Lymph # (Auto) 1.0, [place] # (Auto) 0.7, Eos # (Auto) 0.6 H, Baso # (Auto) 0.1 05/12/20 11:05: Sodium 131 L, Potassium 3.3 L D, Chloride 95 L, Carbon Dioxide 28, Anion Gap 11.3, BUN 17 D, Creatinine 0.80, Estimated Creat Clear 107, Estimated GFR 97, Est GFR ( Amer) 117, Glucose 155 H, Calcium 8.8, Total Bilirubin 1.2, AST 59, ALT 76, Alkaline Phosphatase 178 H, Total Protein 6.4, Albumin 3.2 L, Globulin 3.2, Albumin/Globulin Ratio 1.0 L 05/12/20 11:05: Ammonia 27 I & O for Last 24 hours: Intake & Output 05/09/20 05/10/20 05/11/20 05/12/20 23:59 23:59 23:59 23:59 Intake Total 2260 / 2260 1520 / 1520 730 / 730 980 / 980 Output Total 900 / 900 610 / 610 3400 / 3400 500 / 500 Balance 1360 / 1360 910 / 910 -2670 / -2670 480 / 480 Weight 96.842 kg 96.842 kg 106.141 kg 103.721 kg Microbiology Reports for the Last 24 Hours: Microbiology 05/03/20 01:50 Rectum CRE Surveillance Culture - Final Negative 05/02/20 21:15 Blood Blood Culture - Final Strep agalactiae - (group b) 05/02/20 21:15 Blood Blood Culture - Final Strep agalactiae - (group b) Assessment and Plan (1) STEMI (ST elevation myocardial infarction) Status: Ruled-out Category: Medical Code(s): I21.3 - ST elevation (STEMI) myocardial infarction of unspecified site (2) Cirrhosis of liver Status: Acute Category: Medical Code(s): K74.60 - Unspecified cirrhosis of liver (3) Alcohol abuse Status: Acute Category: Social Hx Code(s): F10.10 - Alcohol abuse, uncomplicated (4) Elevated liver enzymes Status: Acute Category: Medical Code(s): R74.8 - Abnormal levels of other serum enzymes (5) Hypertension Status: Acute Qualifiers: Hypertension type: essential hypertension Qualified Code(s): I10 - Essential (primary) hypertension Category: Medical Code(s): I10 - Essential (primary) hypertension (6) Respiratory arrest Status: Acute Category: Medical Code(s): R09.2 - Respiratory arrest (7) Unresponsive state Status: Acute Category: Medical Code(s): R41.89 - Other symptoms and signs involving cognitive functions and awareness (8) Meningitis Status: Acute Category: Medical Code(s): G03.9 - Meningitis, unspecified (9) Peripheral vascular disease Status: Chronic Category: Medical Code(s): I73.9 - Peripheral vascular disease, unspecified (10) Hypokalemia Status: Acute Category: Medical Code(s): E87.6 - Hypokalemia (11) COVID-19 virus IgG antibody detected Status: Acute Category: Medical Code(s): Z01.84 - Encounter for antibody response examination (12) Coronary artery disease Status: Acute Qualifiers: Coronary Disease-Associated Artery/Lesion type: [place] artery [place] vs. transplanted heart: [place] heart Associated angina: without angina Qualified Code(s): I25.10 - Atherosclerotic heart disease of [place] coronary artery without angina pectoris Category: Medical Code(s): I25.10 - Atherosclerotic heart disease of [place] coronary artery without angina pectoris (13) Cardiomyopathy Status: Acute Qualifiers: Cardiomyopathy type: unspecified Qualified Code(s): I42.9 - Cardiomyopathy, unspecified Category: Medical Code(s): I42.9 - Cardiomyopathy, unspecified (14) Hepatic encephalopathy [place]
--- NOTE | 2020-05-12 15:12 | PC.NURSE ---
A&OX4. PT HAS TOLERATED RA WELL THROUGHOUT SHIFT. RESPIRATIONS REGULAR AND UNLABORED. EXPIRATORY RHONCHI NOTED THROUGHOUT. 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 +3 PITTING EDEMA NOTED IN BLE. PT HAS BEEN ENCOURAGED TO KEEP FEET ELEVATED MUCH POSSIBLE. BLISTERS NOTED AND WEEPING. [facility] CATH WAS DC'D PER AND PT HAS VOIDED SINCE THEN. PT VOIDS PER URINAL OR WALKER TO BATHROOM WITH ASSISTX1 AND WALKER. ACTIVE BOWEL SOUNDS HEARD IN ALL 4 QUADRANTS. FIRM, DISTENDED, NONTENDER ABDOMEN NOTED. NO BM REPORTED THUS FAR. NO REPORTS OF PAIN THUS FAR. PT HAS BEEN UP TO THE CHAIR MOST OF THE SHIFT. PT'S , AND 2 DAUGHTERS HAVE VISITED TODAY. SPOKE WITH MARIELENA AT [facility] ABOUT TRANSFER TO THEIR FACILITY TOMORROW. SHE STATED PT NEEDS TO BE TO THEM NO LATER THAN 11:30. SHE WOULD ALSO LIKE PAPERWORK TO BE FAXED TO HER. . PT AND FAMILY ARE AWARE OF PLAN TO BE DISCHARGED TO [facility] TOMORROW. PT HAS RECEIVED SEVERAL ANTIBIOTICS THIS SHIFT AND TOLERATED WELL. PT IS CURRENTLY SITTING IN THE CHAIR W CALL LIGHT WITHIN REACH. BED IN LOWEST POSITION. VSS. WILL CONTINUE TO MONITOR.
--- NOTE | 2020-05-12 21:48 | PC.NURSE ---
on assessment, legs found to be weeping which is not new, BLE cold, doppler used to find pulses, pulses present and marked
[2020-05-13] VITALS: PULSE 70
[2020-05-13 04:00] VITALS: BP 130/71; PULSE 70; PULSE 74; RESP 17; TEMP 36.6; O2SAT 94
[2020-05-13 04:46] VITALS: BMI 30.9
--- NOTE | 2020-05-13 04:54 | PC.NURSE ---
pt has rested well t/o shift, has remained on room air with O2 sats 94-98%, HR 74-93, no complaints of SOA or chest pain, BLE continue to weep, has ambulated to bathroom with one assist
[2020-05-13 08:00] VITALS: BP 145/76; PULSE 82; PULSE 95; RESP 20; TEMP 36.8; O2SAT 96
--- NOTE | 2020-05-13 08:56 | HMH.DCSUM ---
General - General Admission date:: 05/02/20 Discharge date: 05/13/20 HPI HPI: 64-year-old white male with unavailable past medical history except for hypertension and heavy smoking and peripheral vascular disease who had been in his compromise state of health over the past couple of days according to his 's history related to the nursing staff, who over the past 12 hours has been falling frequently. He had fallen quite a bit at home, and then had what the described as a seizure episode and then became unresponsive. EMS was summoned, when they arrived the patient was unresponsive and in respiratory distress. They found that he had significantly elevated blood pressures, he was nasally intubated and brought to the emergency department. In the emergency department he was found to have ST segment elevation, CT scan of the head was done to make sure he did not have hemorrhagic stroke-this was negative except for chronic changes and he was taken to the [facility]. Cath revealed heavily calcified peripheral arterial disease but essentially normal coronary arteries and normal ejection fraction. He remained unresponsive and intubated and was transferred to the intensive care unit for further evaluation. I have seen him tonight in cross cover as well as in consultation for ventilator management from his primary care physician team. Hospital Course Hospital Course: pt was seen in the ed -t arrived per EMS nasally intubated, per EMS pt has ST elevation on EKG. EMS states pt family reports pt has had multiple falls in the past 24 hours. NO eye opening response, no verbal response, pt will resond to pain per EMS. Upon arrival pt is responsive to pain, EKG performed upon arrival This 64-year-old male brought by EMS with complaint of shortness of breath and frequent falls he was intubated in the field at the time of arrival and had complained of chest pain initial EKG had shown ST elevation; He has a h/o cirrhosis of the liver; 4-year-old male presented to the emergency room with STEMI. Pt is intubated and unresponsive. stated at 1200 pm this afternoon, she noticed the pt stumbling to the restroom. stated she thought the pt was just tired, so she left him alone with a few hours. When she returned to check on him, she noticed that he was not responding to any commands. stated that the pt's eyes were rolling back into his head and he would not respond appropriately. stated that the pt was not drooling or face drooping. stated that the pt had been complaining of lower back pain and left hip pain. Pt had fell off a tractor a few weeks ago scrapping his lower extremities. stated that she had been treating the scraps with ointment. No fever noted. He has no significant history of coronary artery disease. Does smoke 1 pack of cigarettes per day. Patient has smoked for the past 20 to 30 years. admits patient does drink alcohol. States he normally drinks 2-3 beers a day. Patient was diagnosed with cirrhosis of the liver a few years ago. He has required 2 paracentesis. The last one being 15 to 20 years ago per . Patient does have history of hepatitis. states patient was last seen by PCP a few months ago and was given prescription for spironolactone. stated that she prefers patient not to have any medications because she tries to do everything homeopathic. Initial EKG performed in the ED revealed STEMI. Lab work was performed. CBC 36.0, sodium 122, BUN 12 creatinine 0.80 and livers enzymes were elevated. CT of Head: FINDINGS: No midline shift, mass effect, intracranial hemorrhage, hydrocephalus, or extra-axial fluid collection is evident. The basilar cisterns are prominent. Sylvian fissures and cortical sulci. There are mild bilateral periventricular hypodensities consistent chronic ischemic white matter changes. There is no definite ischemic infarct seen. The calvarium
--- NOTE | 2020-05-13 09:30 | PC.NURSE ---
UNNA BOOTS PLACED ON PT. PT TOLERATING WELL.
--- NOTE | 2020-05-13 10:36 | PC.NURSE ---
CALLED REPORT TO CÉSAR AT [facility].
--- NOTE | 2020-05-13 10:39 | PC.NURSE ---
CALLED [facility] TO TRANSPORT PT.
[2020-05-13 10:56] VITALS: BP 145/76; PULSE 82; RESP 20; TEMP 36.8; O2SAT 96
[2020-05-14 08:09] LABS: Hep A Ab, IgM Negative (Negative); Hepatitis B Core Antibody IgM Negative (Negative); Hepatitis B Surface Antigen Negative (Negative)
[2020-05-14 15:15] LABS: Hepatitis C Antibody <0.1 s/co ratio (0.0-0.9)
[2020-05-14 20:53] LABS: Actin (Smooth Muscle) Antibody 11 Units (0-19); Mitochondrial (M2) Antibody 130.3 Units (0.0-20.0)
[2020-05-14 22:29] LABS: ALT (SGPT) P5P 67 IU/L (0-55); AST (SGOT) P5P 52 IU/L (0-40); Alpha 2-Macroglobulins, Qn 318 mg/dL (110-276); Apolipoprotein A-1 74 mg/dL (101-178); Bilirubin, Total 1.1 mg/dL (0.0-1.2); Cholesterol, Total 116 mg/dL (100-199); Fibrosis Score 0.93 (0.00-0.21); GGT 249 IU/L (0-65); Glucose 112 mg/dL (65-99); Haptoglobin 117 mg/dL (32-363); Steatosis Score 0.87 (0.00-0.30); Triglycerides 111 mg/dL (0-149)
[2020-05-18 15:38] LABS: Alpha-1-Antitrypsin 244 mg/dL (101-187)
[2020-07-16 14:19] LABS: CATHL Activated Clotting Time 296 SEC (74-125)
== END 2020-05-13 11:14 | DRG 207 ==
LOC: ER 14:48 → CATHLAB 14:51 → ER 15:29 → CATHLAB 17:16 → 2ND 17:19
PROVIDERS: Internal Medicine; Internal Medicine Adolescent Medicine; Internal Medicine Cardiovascular Disease; Internal Medicine Gastroenterology; Internal Medicine Pulmonary Disease; Nurse Practitioner Family; Admitting Provider Family Medicine; Emergency Provider Emergency Medicine; PCP Emergency Medicine; Visit Provider Family Medicine
PROC: B41D1ZZ Fluoroscopy of Aorta and Bilateral Lower Extremity Arteries using Low Osmolar Contrast (ICD-10-PCS; principal; 2020-05-02 14:45)
DX: J96.01 Acute respiratory failure with hypoxia (principal); I21.19 ST elevation (STEMI) myocardial infarction involving other coronary artery of inferior wall; I74.5 Embolism and thrombosis of iliac artery; I74.3 Embolism and thrombosis of arteries of the lower extremities; I42.9 Cardiomyopathy, unspecified; Z72.0 Tobacco use; I77.1 Stricture of artery; Z91.81 History of falling; K70.30 Alcoholic cirrhosis of liver without ascites; F10.20 Alcohol dependence, uncomplicated; I70.203 Unspecified atherosclerosis of native arteries of extremities, bilateral legs; I25.2 Old myocardial infarction; Z86.16 Personal history of COVID-19
CPT/HCPCS: 31500; 94002; 62270; 36246; 36248; 36415; 70220; 70371; 70450; 71045; 71275; 75625; 75716; 76705; 80048; 80053; 80074; 80202; 81001; 82103; 82104; 82140; 82728; 82803; 82945; 83605; 84155; 84443; 84484; 85007; 85025; 85347; 85378; 86255; 86256; 86328; 87040; 87070; 87077; 87081; 87186; 87205; 87252; 87899; 89051; 92507; 92610; 92611; 93005; 93306; 93458; 94003; 94640; 94760; 94761; 95819; 96365; 96375; 97110; 97116; 97163; 97166; 97530; 99152; 99153; 99285; C1725; C1769; C1894; J0290; J0456; J1644; J2704; J2720; J3370; Q9967

== ENCOUNTER 2020-06-07 15:51 | Emergency (ER) | payer MEDICARE, OTHER, SELFPAY ==
[2020-06-07 16:05] VITALS: BP 164/85; PULSE 66; RESP 16; TEMP 36.8; O2SAT 100; BMI 24.7
--- NOTE | 2020-06-07 16:13 | HMH.EDGENADL ---
ED Disposition Clinical Impression: Epistaxis Disposition: Home, Self-Care Condition on Discharge: Good Instructions: DI for Nosebleed Referrals: Scooby Morales MD [Primary Care Provider] - Time of Disposition: 17:00 - Critical Care Critical Care Time: No Attestation: On 06/07/20, the high probability of a clinically significant, sudden or life threatening deterioration of the following system(s) required my full and direct attention, intervention and personal management. The time I documented below is in addition to time spent performing reported procedures but includes the following listed in this critical care notation. Medical Decision Making - Medical Records Medical records reviewed: Yes: I reviewed the patient's medical records. - Avelino Inquiry Pt receiving controlled substance: No Vital Signs: 06/07/20 16:05 06/07/20 16:16 Temperature 98.2 F Temperature Source Oral Pulse Rate [Right] 66 67 Respiratory Rate 16 Blood Pressure [Right Arm] 164/85 H 164/85 H Blood Pressure Mean [Right Arm] 111 111 Blood Pressure Source [Right Arm] Automatic Cuff Automatic Cuff Blood Pressure Position [Right Arm] Sitting Sitting 02 Sat by Pulse Oximetry 100 100 Oxygen Delivery Method Room Air Room Air Orders (Tests/Meds): ED MEDICATIONS Discontinued Medications Generic Name Dose Route Start Last Admin Trade Name Freq PRN Reason Stop Dose Admin Oxymetazoline HCl 2 ml 06/07/20 15:59 06/07/20 16:11 Oxymetazoline Nasal [place] 0.05% 15ml NS 06/07/20 16:00 2 sprays ONCE ONE Administration Medical Decision Narrative: In summary this is a 64-year-old male presenting to the emergency department with epistaxis. He is clinically stable on arrival. Vital signs within normal limits. Packing was removed and one clot came out. Patient was instructed to blow his nose to clear all other remaining clot. Afrin was instilled in the right nostril. Hemostasis achieved. Patient observed in the emergency department. No repeat bleeding. He was counseled to avoid blowing his nose. Avoid digital trauma. Continue taking all medications as prescribed. Follow-up with PCP. Stable for discharge. General Adult HPI - General Chief complaint: Epistaxis Stated complaint: nose bleed Time Seen by Provider: 06/07/20 16:13 Mode of Arrival: Ambulatory Limitations: No Limitations Description of Symptoms (Recalled from ER Triage Doc. by RN): Pt has been having a nose bleed since 10:30. Advises he had a blood clot come out, when he arrived to ED we removed gauze that was in the nose and a clot came out. Bleeding has stopped at this time - History of Present Illness HPI narrative: 64-year-old male presenting to the emergency department with epistaxis. Has been draining out of his right nostril. Started around 10:30 AM. He was blowing his nose and saw a few scabs come out. Later on he had passage of a larger clot. Presented to his PCP and was instructed to come to the emergency department for evaluation. Patient has liver cirrhosis. He had a critical illness little over 1 month ago and was nasally intubated. Since then he has had occasional nosebleeds. No nausea, vomiting. Does not feel blood running down his throat. No headache, weakness. He has easy bruising. Takes Plavix. No other blood thinners. - Related Data Home Medications Medication Instructions Recorded Confirmed Multivitamin [Daily Multiple 1 each PO DAILY 05/03/20 06/07/20 Vitamin] ascorbic acid (vitamin C) 500 mg mg PO 06/07/20 06/07/20 capsule famotidine 20 mg tablet 20 mg PO BID 06/07/20 06/07/20 thiamine HCl (vitamin B1) 100 mg 100 mg PO DAILY 06/07/20 06/07/20 tablet Previous Rx's Medication Instructions Recorded Ipratropium/Albuterol Sulfate 3 ml IH Q6RT PRN ampul.neb 05/13/20 [Duoneb 3mL neb] aspirin 81 mg tablet,delayed 81 mg PO DAILY 90 Days #90 tab 06/07/20 release atorvastatin 40 mg tablet 40 mg
[2020-06-07 16:16] VITALS: BP 164/85; PULSE 67; O2SAT 100
[2020-06-07 17:00] VITALS: BP 156/72; PULSE 62; O2SAT 99
[2020-06-07 17:04] VITALS: BP 156/72; PULSE 61; RESP 16; TEMP 36.6; O2SAT 99
== END 2020-06-07 17:07 | disposition home or self-care (01) ==
PROVIDERS: Emergency Provider Emergency Medicine; PCP Emergency Medicine
DX: R04.0 Epistaxis (principal); K74.60 Unspecified cirrhosis of liver; I25.10 Atherosclerotic heart disease of native coronary artery without angina pectoris; I25.2 Old myocardial infarction; I10 Essential (primary) hypertension; I73.9 Peripheral vascular disease, unspecified; Z86.16 Personal history of COVID-19; F17.210 Nicotine dependence, cigarettes, uncomplicated; Z79.899 Other long term (current) drug therapy
CPT/HCPCS: 99282

== ENCOUNTER 2020-12-01 13:02 | Emergency (ER) | payer MEDICARE, OTHER, SELFPAY ==
[2020-12-01 13:01] VITALS: BP 106/88; PULSE 68; RESP 20; TEMP 36.8; O2SAT 98; BMI 25.7
--- NOTE | 2020-12-01 13:04 | ECG_ITS ---
APPROVED REPORT Exam: Resting ECG HR:62 bpm ECG Measurements Heart Rate 62 AXES QRSd 86 QRS 13 QT 378 T 75 QTc 383 Conclusion Atrial fibrillation with a competing junctional pacemaker Septal infarct, age undetermined Abnormal ECG Electronically signed by : Cristobal Guevara, 12/02/2020 20:41:52
[2020-12-01 13:12] LABS: Basophils % 0.3 % (0.1-2.0); Eosinophils # 0.1 K/mm3 (0.0-0.4); Eosinophils % 0.8 % (0.1-12.0); Hematocrit 42.6 % (42.0-52.0); Hemoglobin 14.4 g/dL (14.1-18.0); Lymphocytes # 1.6 K/mm3 (0.7-4.5); Lymphocytes % 10.1 % (10-50); Mean Corpuscular HGB Conc 33.7 g/dL (31.8-35.4); Mean Corpuscular Hemoglobin 33.2 pg (27.0-31.2); Mean Corpuscular Volume 98.3 fl (80-94); Monocytes # 0.7 K/mm3 (0.1-1.0); Monocytes % 4.2 % (1.7-9.3); Neutrophils # 13.6 K/mm3 (1.8-7.8); Neutrophils % 84.6 % (37.0-80.0); Platelet Count 462 K/mm3 (142-424); Red Blood Count 4.34 M/mm3 (4.60-6.20); Red Cell Distribution Width 14.8 % (11.5-17.5)
[2020-12-01 13:18] LABS: MANUAL DIFFERENTIAL MANUAL DIFFERENTIAL (MANUAL DIFF)
[2020-12-01 13:26] LABS: Alanine Aminotransferase 62 U/L (12-78); Albumin Level 3.7 g/dl (3.5-5.0); Albumin/Globulin Ratio 1.2 (1.1-1.8); Alkaline Phosphatase 194 U/L (38-126); Anion Gap 17.3 mEq/L (5-15); Aspartate Amino Transferase 56 U/L (17-59); Bilirubin,Total 2.3 mg/dl (0.2-1.3); Blood Urea Nitrogen 44 mg/dl (9-20); Calcium 9.1 mg/dl (8.4-10.2); Carbon Dioxide 18 mmol/L (22.0-30.0); Chloride 82 mmol/L (98-107); Creatinine Clearance Estimated 58 mL/min (50-200); Estimated Glomerular Filt Rate 47 ml/min (>60); GFR (African American) 56 ML/MIN (>60); Glucose 147 mg/dl (74-100); Total Protein,Serum 6.7 g/dl (6.3-8.2)
[2020-12-01 13:28] LABS: Lymphocytes % 15 % (10-50); Monocytes % 5 % (2-9); Neutrophils % 80 % (42-76); Platelet Estimate Slight Increase; RBC Morphology Normal; Total Cells Counted 100
[2020-12-01 13:29] LABS: Potassium 6.3 mmoL/L (3.5-5.1); Sodium 111 mmol/L (136-145)
[2020-12-01 13:30] VITALS: BP 110/55; PULSE 55; O2SAT 98
[2020-12-01 13:39] LABS: NT Pro Brain Natriuretic Pep. 933 pg/mL (0-125); Troponin I 0.04 ng/ml (0.00-0.034)
[2020-12-01 13:44] LABS: Procalcitonin 0.168 ng/mL (0.0-2.0)
--- NOTE | 2020-12-01 13:48 | HMH.EDGENADL ---
ED Disposition Clinical Impression: Hyponatremia, ILAN (acute kidney injury), Hyperammonemia, Hyperkalemia A-fib Qualifiers: Atrial fibrillation type: unspecified Qualified Code(s): I48.91 - Unspecified atrial fibrillation CHF exacerbation Qualifiers: Heart failure type: unspecified Qualified Code(s): I50.9 - Heart failure, unspecified Sepsis Qualifiers: Sepsis type: sepsis due to unspecified organism Sepsis acute organ dysfunction status: unspecified Qualified Code(s): A41.9 - Sepsis, unspecified organism Disposition: Xfer Short-Term Hosp Condition on Discharge: Fair Referrals: Scooby Morales MD [Primary Care Provider] - Forms: Transfer Record - ED Time of Disposition: 16:45 - Critical Care Critical Care Time: Yes Attestation: On 12/01/20, the high probability of a clinically significant, sudden or life threatening deterioration of the following system(s) required my full and direct attention, intervention and personal management. The time I documented below is in addition to time spent performing reported procedures but includes the following listed in this critical care notation. Total Critical Care Time: 65 Vital system(s) involved:: Renal Failure My critical care processes included: Assessment & monitoring of V/S, Initial and Re-exams, Data Review/Interpretation, Coordinating Care, Medication Orders and management, Documentation Medical Decision Making - Medical Records Medical records reviewed: Yes: I reviewed the patient's medical records. - Avelino Inquiry Pt receiving controlled substance: No Vital Signs: 12/01/20 13:01 12/01/20 13:30 12/01/20 14:00 Temperature 98.2 F Temperature Source Oral Pulse Rate 55 L 59 L Pulse Rate [Radial] 68 Respiratory Rate 20 Blood Pressure 110/55 L 100/63 L Blood Pressure [Right Arm] 106/88 L Blood Pressure Mean [Right Arm] 94 Blood Pressure Position Sitting Blood Pressure Position [Right Arm] Sitting 02 Sat by Pulse Oximetry 98 98 98 Oxygen Delivery Method Room Air Room Air Room Air 12/01/20 14:30 12/01/20 15:00 Temperature Temperature Source Pulse Rate 55 L 68 Pulse Rate [Radial] Respiratory Rate Blood Pressure 124/53 L 148/69 H Blood Pressure [Right Arm] Blood Pressure Mean [Right Arm] Blood Pressure Position Sitting Sitting Blood Pressure Position [Right Arm] 02 Sat by Pulse Oximetry 100 98 Oxygen Delivery Method Room Air Room Air - Lab Data Lab results reviewed: Yes: I reviewed the patient's lab results. Lab Results 12/01/20 13:00: WBC 16.0 H, RBC 4.34 L, Hgb 14.4, Hct 42.6, MCV 98.3 H, MCH 33.2 H, MCHC 33.7, RDW 14.8, Plt Count 462 H, MPV 8.0, Neut % (Auto) 84.6 H, Lymph % (Auto) 10.1, [place] % (Auto) 4.2, Eos % (Auto) 0.8, Baso % (Auto) 0.3, Neut # (Auto) 13.6 H, Lymph # (Auto) 1.6, [place] # (Auto) 0.7, Eos # (Auto) 0.1, Baso # (Auto) 0.0, Total Counted 100, Neutrophils % (Manual) 80 H, Lymphocytes % (Manual) 15, Monocytes % (Manual) 5, Platelet Estimate Slight increase, RBC Morphology Normal 12/01/20 13:00: Sodium 111 L*, Potassium 6.3 H*, Chloride 82 L, Carbon Dioxide 18 L, Anion Gap 17.3 H, BUN 44 H, Creatinine 1.50 H, Estimated Creat Clear 58, Estimated GFR 47 L, Est GFR ( Amer) 56 L, Glucose 147 H, Calcium 9.1, Total Bilirubin 2.3 H, AST 56, ALT 62, Alkaline Phosphatase 194 H, Troponin I 0.04 H, NT-Pro-B Natriuret Pep 933 H, Total Protein 6.7, Albumin 3.7, Globulin 3.0, Albumin/Globulin Ratio 1.2, Procalcitonin 0.168 12/01/20 13:00: Lactate 2.5 H 12/01/20 13:00: PT 12.8 H, INR 1.09 12/01/20 13:50: Ammonia 51 H 12/01/20 13:57: Urine Color Yellow, Urine Appearance Clear, Urine pH 5.5, Ur Specific [place] 1.010, Urine Protein Negative, Urine Glucose (UA) Negative, Urine Ketones Negative, Urine Blood Negative, Urine Nitrate Negative, Urine Bilirubin Negative, Urine Urobilinogen 1.0, Ur Leukocyte Esterase Negative, Urine RBC None, Urine WBC 3-5, Ur Squamous Epith Cells Occasional, Urine Bacteria None 12/01/20 14:42:
--- NOTE | 2020-12-01 13:56 | PC.NURSE ---
placed call to for icu bed, waiting for return call.
[2020-12-01 14:00] VITALS: BP 100/63; PULSE 59; O2SAT 98
[2020-12-01 14:02] LABS: Lactic Acid 2.5 mmol/L (0.7-2.1)
[2020-12-01 14:15] LABS: Ammonia 51 umol/L (9-30)
[2020-12-01 14:21] LABS: Microscopic, Urine URINE MICROSCOPIC (MICROSCOPIC)
--- NOTE | 2020-12-01 14:21 | PC.NURSE ---
Dr Goetz speaking with [facility]
[2020-12-01 14:24] LABS: Appearance,Urine CLEAR (Clear); Bilirubin,Urine Negative (Negative); Blood, Urine Negative (Negative); Color,Urine YELLOW (Yellow); Glucose,Urine (UA) Negative (Negative); Ketones,Urine Negative (Negative); Leukocyte Esterase,Urine Negative (Negative); Nitrate,Urine Negative (Negative); PH,Urine 5.5 (5.0-8.5); Protein,Urine Negative (Negative)
[2020-12-01 14:28] LABS: Squamous Epithelial Cell,Urine Occasional #/hpf (0-5)
--- NOTE | 2020-12-01 14:28 | PC.NURSE ---
Placed calls to [facility] and [facility], no ICU beds available and [facility] waiting list.
[2020-12-01 14:30] VITALS: BP 124/53; PULSE 55; O2SAT 100
--- NOTE | 2020-12-01 14:36 | PC.NURSE ---
[facility] has no icu beds.
--- NOTE | 2020-12-01 14:43 | PC.NURSE ---
[facility] hospitalist.
[2020-12-01 14:47] LABS: Coronavirus 19, PCR Not Detected (NotDetected); Influenza A, PCR Not Detected (NotDetected); Influenza B, PCR Not Detected (NotDetected)
[2020-12-01 15:00] VITALS: BP 148/69; PULSE 68; O2SAT 98
--- NOTE | 2020-12-01 15:05 | PC.NURSE ---
[facility] returning call.
[2020-12-01 15:20] LABS: Prothrombin Time 12.8 seconds (10.1-12.5)
[2020-12-01 15:22] LABS: INR 1.09 (0.9-1.1)
--- NOTE | 2020-12-01 15:34 | PC.NURSE ---
The following ambulance services were called for a transfer [place]; [facility], [facility], [facility],they were not availableand [facility] is attempting to get another crew in. they are unable too.
--- NOTE | 2020-12-01 16:39 | PC.NURSE ---
[facility] accepting flight, they will call with ETA when aircraft lifts off.
[2020-12-01 17:31] VITALS: BP 123/74; PULSE 68; RESP 16; TEMP 36.6; O2SAT 98
[2020-12-01 17:46] LABS: Reflex Lactic Add Lactic Reflex
== END 2020-12-01 17:34 | disposition short-term general hospital (02) ==
PROVIDERS: Emergency Provider Family Medicine; PCP Emergency Medicine
DX: N17.9 Acute kidney failure, unspecified (principal); E87.1 Hypo-osmolality and hyponatremia; E72.20 Disorder of urea cycle metabolism, unspecified; E87.5 Hyperkalemia; A41.9 Sepsis, unspecified organism; I50.9 Heart failure, unspecified; I48.91 Unspecified atrial fibrillation; I10 Essential (primary) hypertension; I25.10 Atherosclerotic heart disease of native coronary artery without angina pectoris; K70.30 Alcoholic cirrhosis of liver without ascites; F17.210 Nicotine dependence, cigarettes, uncomplicated; Z79.899 Other long term (current) drug therapy; Z20.822 Contact with and (suspected) exposure to COVID-19
CPT/HCPCS: 80053; 81001; 82140; 83605; 83880; 84145; 84484; 85007; 85025; 85610; 93005; 96365; 96367; 96375; 99285; J0692; U0003